=== PATIENT | female | born 1950 | race Caucasian/White ===

== ENCOUNTER 2017-12-02 11:40 | Inpatient (IN) | payer MEDICARE, BC ==
[2017-12-02] MEDS ORDERED: ACETAMINOPHEN IV (For NPO) 1,000 MG in EMPTY BAG 1 BAG IVPB STA (14:06)
--- NOTE | 2017-12-02 14:07 | ED ---
General Adult HPI - General Source: patient, RN notes reviewed Mode of arrival: ambulatory Limitations: no limitations <Yves Corado - Last Filed: 12/02/17 16:22> <Itz Jung - Last Filed: 12/02/17 16:30> - General Chief complaint: Abdominal Pain Stated complaint: Rectal pain Time Seen by Provider: 12/02/17 13:55 - History of Present Illness Initial comments: 67-year-old female who presents emergency room today with a chief complaint of abdominal pain over the last 3 weeks. She does admit that she's felt constipated. Doesn't that she's tried a stool softener. States that she was able have small bowel movement. States she still feeling full. Associated patient's pain equal to the rectum and also having some dysuria type symptoms. She does admit some pressure with urination. Patient denies any other complaints. Patient denies any recent fever, chills, shortness of breath, chest pain, nausea or vomiting, numbness or tingling, dysuria or hematuria, headaches or visual changes, or any other complaints. (Yves Corado) - Related Data Home Medications Medication Instructions Recorded Confirmed Albuterol Sulfate [Proair Hfa] 1 - 2 puff INHALATION RT-Q6H PRN 12/02/17 Calcium Carbonate [Calcium] 600 mg PO DAILY 12/02/17 12/02/17 Calcium Polycarbophil [Fibercon] 625 mg PO DAILY 12/02/17 12/02/17 DULoxetine HCL [Cymbalta] 60 mg PO HS 12/02/17 12/02/17 Docusate [Colace] 100 mg PO DAILY PRN 12/02/17 12/02/17 Fluticasone Nasal [place] [Flonase 1 spray EA NOSTRIL DAILY 12/02/17 12/02/17 Nasal [place]] Gabapentin [Neurontin] 800 mg PO TID 12/02/17 12/02/17 Losartan Potassium [Cozaar] 100 mg PO HS 12/02/17 12/02/17 Metoprolol Tartrate [Lopressor] 50 mg PO W/LUNCH 12/02/17 12/02/17 Montelukast [Singulair] 10 mg PO HS 12/02/17 12/02/17 Omeprazole [PriLOSEC] 20 mg PO DAILY 12/02/17 12/02/17 Pioglitazone [Actos] 15 mg PO DAILY 12/02/17 12/02/17 Pyridoxine HCl (Vitamin B6) 100 mg PO DAILY 12/02/17 12/02/17 [Vitamin B-6] Simvastatin [Zocor] 10 mg PO HS 12/02/17 12/02/17 Triamterene/Hydrochlorothiazid 1 tab PO DAILY 12/02/17 12/02/17 [Triamterene-Hctz 37.5-25 mg Tb] Umeclidinium Brm/Vilanterol Tr 1 puff INHALATION RT-DAILY 12/02/17 12/02/17 [Anoro Ellipta 62.5-25 Mcg INH] Vitamin E (Dl,Tocopheryl Acet) 400 unit PO DAILY 12/02/17 12/02/17 [Vitamin E] Allergies Allergy/AdvReac Type Severity Reaction Status Date / Time codeine Allergy Unknown Verified 12/02/17 14:51 meperidine [From Demerol] Allergy Unknown Verified 12/02/17 14:51 Review of Systems ROS Other: All systems not noted in ROS Statement are negative. <Yves Corado - Last Filed: 12/02/17 16:22> ROS Other: All systems not noted in ROS Statement are negative. <Itz Jung - Last Filed: 12/02/17 16:30> ROS Statement: Those systems with pertinent positive or pertinent negative responses have been documented in the HPI. Past Medical History Past Medical History: Asthma, COPD, Diabetes Mellitus, Hypertension Additional Past Medical History / Comment(s): diverticulitis History of Any Multi-Drug Resistant Organisms: None Reported Past Surgical History: Appendectomy, Hysterectomy, Orthopedic Surgery Additional Past Surgical History / Comment(s): left and right knee replacement, carpal tunnel Past Psychological History: Depression Smoking Status: Never smoker Past Alcohol Use History: None Reported Past Drug Use History: None Reported <Yves Corado - Last Filed: 12/02/17 16:22> General Exam Limitations: no limitations <Yves Corado - Last Filed: 12/02/17 16:22> <Itz Jung - Last Filed: 12/02/17 16:30> - General Exam Comments Initial Comments: General: The patient is awake and alert, in no distress, and does not appear acutely ill. Eye: Pupils are equal, round and reactive to light, extra-ocular movements are intact. No nystagmus. There is normal conjunctiva bilaterally. No signs of icterus. Ears, nose, mouth and throat: There are moist mucous membranes and no oral lesions. Neck: The neck is supple, there is no tenderness or JVD. Cardiovascular: There is a regular rate and rhythm. No murmur, rub or gallop is appreciated. Respiratory: Lungs are clear to auscultation, respirations are non-labored, breath sounds are equal. No wheezes, stridor, rales, or rhonchi. Gastrointestinal: Normal appearance of the abdomen. Normal bowel sounds. Abdomen soft on palpation. Patient does have tenderness or abdomen on palpation. No rebound tenderness. No guarding. Musculoskeletal: Normal ROM, no tenderness. Strength 5/5. Sensation intact. Pulses equal bilaterally 2+. Neurological: A&O x 3. CN II-XII intact, There are no obvious motor or sensory deficits. Coordination appears grossly intact. Speech is normal. Skin: Skin is warm and dry and no rashes or lesions are noted. Psychiatric: Cooperative, appropriate mood & affect, normal judgment. (Yves Corado) Course <Yves Corado - Last Filed: 12/02/17 16:22> <Itz Jung - Last Filed: 12/02/17 16:30> Vital Signs 12/02/17 12/02/17 12/02/17 11:59 13:58 14:44 Temperature 100.4 F H Pulse Rate 88 83 83 Respiratory 16 16 14 Rate Blood Pressure 189/74 160/68 150/65 O2 Sat by Pulse 97 96 97 Oximetry - Reevaluation(s) Reevaluation #1: 12/02/17 16:27 I did personally do a [id number] evaluation the patient did discuss findings with her she does demonstrate lower abdominal pain. I did discuss the case with the on-call hospitalist Dr. Mariano and with Dr. Wheat. He has had this was evidence of a retrocecal diverticulitis with abscess. (Itz Jung) Medical Decision Making - Lab Data Result diagrams: 12/02/17 13:51 12/02/17 13:51 <Yves Corado - Last Filed: 12/02/17 16:22> - Lab Data Result diagrams: 12/02/17 13:51 12/02/17 13:51 <Itz Jung - Last Filed: 12/02/17 16:30> - Medical Decision Making Patient's labs been reviewed does show a 16,[address] does reveal sigmoid diverticulitis with an abscess. This discussed was seen by attending physician Dr. Jung discussed the case with patient's surgeon Dr. Wheat will be consult and patient will be admitted to medicine on antibiotics. Patient is aware the plan. (Yves Corado) - Lab Data Lab Results 12/02/17 12/02/17 12/02/17 Range/Units 13:51 13:51 13:51 WBC 16.3 H (3.8-10.6) k/uL RBC 4.53 (3.80-5.40) m/uL Hgb 12.3 (11.4-16.0) gm/dL Hct 38.5 (34.0-46.0) % MCV 84.9 (80.0-100.0) fL MCH 27.1 (25.0-35.0) pg MCHC 32.0 (31.0-37.0) g/dL RDW 13.1 (11.5-15.5) % Plt Count 239 (150-450) k/uL Neutrophils % 87 % Lymphocytes % 7 % Monocytes % 4 % Eosinophils % 1 % Basophils % 0 % Neutrophils # 14.1 H (1.3-7.7) k/uL Lymphocytes # 1.2 (1.0-4.8) k/uL Monocytes # 0.7 (0-1.0) k/uL Eosinophils # 0.1 (0-0.7) k/uL Basophils # 0.0 (0-0.2) k/uL Sodium 140 (137-145) mmol/L Potassium 4.6 (3.5-5.1) mmol/L Chloride 99 (98-107) mmol/L Carbon Dioxide 28 (22-30) mmol/L Anion Gap 13 mmol/L BUN 20 H (7-17) mg/dL Creatinine 0.90 (0.52-1.04) mg/dL Est GFR (MDRD) Af Amer >60 (>60 ml/min/1.73 sqM) Est GFR (MDRD) Non-Af >60 (>60 ml/min/1.73 sqM) Glucose 103 H (74-99) mg/dL Plasma Lactic Acid [place]on 1.0 (0.7-2.0) mmol/L Calcium 9.9 (8.4-10.2) mg/dL Total Bilirubin 0.5 (0.2-1.3) mg/dL AST 30 (14-36) U/L ALT 33 (9-52) U/L Alkaline Phosphatase 84 (38-126) U/L Total Protein 6.8 (6.3-8.2) g/dL Albumin 4.1 (3.5-5.0) g/dL Amylase 47 (30-110) U/L Lipase 49 (23-300) U/L Urine Color Urine Appearance (Clear) Urine pH (5.0-8.0) Ur Specific [place] (1.001-1.035) Urine Protein (Negative) Urine Glucose (UA) (Negative) Urine Ketones (Negative) Urine Blood (Negative) Urine Nitrite (Negative) Urine Bilirubin (Negative) Urine Urobilinogen (<2.0) mg/dL Ur Leukocyte Esterase (Negative) Urine RBC (0-5) /hpf Urine WBC (0-5) /hpf Urine WBC Clumps (None) /hpf Ur Squamous Epith Cells (0-4) /hpf Urine Bacteria (None) /hpf Urine Mucus (None) /hpf 12/02/17 Range/Units 13:51 WBC (3.8-10.6) k/uL RBC (3.80-5.40) m/uL Hgb (11.4-16.0) gm/dL Hct (34.0-46.0) % MCV (80.0-100.0) fL MCH (25.0-35.0) pg MCHC (31.0-37.0) g/dL RDW (11.5-15.5) % Plt Count (150-450) k/uL Neutrophils % % Lymphocytes % % Monocytes % % Eosinophils % % Basophils % % Neutrophils # (1.3-7.7) k/uL Lymphocytes # (1.0-4.8) k/uL Monocytes # (0-1.0) k/uL Eosinophils # (0-0.7) k/uL Basophils # (0-0.2) k/uL Sodium (137-145) mmol/L Potassium (3.5-5.1) mmol/L Chloride (98-107) mmol/L Carbon Dioxide (22-30) mmol/L Anion Gap mmol/L BUN (7-17) mg/dL Creatinine (0.52-1.04) mg/dL Est GFR (MDRD) Af Amer (>60 ml/min/1.73 sqM) Est GFR (MDRD) Non-Af (>60 ml/min/1.73 sqM) Glucose (74-99) mg/dL Plasma Lactic Acid [place] (0.7-2.0) mmol/L Calcium (8.4-10.2) mg/dL Total Bilirubin (0.2-1.3) mg/dL AST (14-36) U/L ALT (9-52) U/L Alkaline Phosphatase (38-126) U/L Total Protein (6.3-8.2) g/dL Albumin (3.5-5.0) g/dL Amylase (30-110) U/L Lipase (23-300) U/L Urine Color Yellow Urine Appearance Clear (Clear) Urine pH 5.5 (5.0-8.0) Ur Specific [place] 1.013 (1.001-1.035) Urine Protein Negative (Negative) Urine Glucose (UA) Negative (Negative) Urine Ketones Negative (Negative) Urine Blood Negative (Negative) Urine Nitrite Negative (Negative) Urine Bilirubin Negative (Negative) Urine Urobilinogen <2.0 (<2.0) mg/dL Ur Leukocyte Esterase Small H (Negative) Urine RBC 1 (0-5) /hpf Urine WBC 11 H (0-5) /hpf Urine WBC Clumps Rare H (None) /hpf Ur Squamous Epith Cells 1 (0-4) /hpf Urine Bacteria Rare H (None) /hpf Urine Mucus Rare H (None) /hpf Disposition Time of Disposition: 16:26 <Yves Corado - Last Filed: 12/02/17 16:22> <Itz Jung - Last Filed: 12/02/17 16:30> Clinical Impression: Diverticulitis Disposition: ADMITTED IP TO THIS [facility] Referrals: Vignesh De Souza MD [Primary Care Provider] - 1-2 days
[2017-12-02 14:09] LABS: Basophils % (A) 0 %; Eosinophils # (A) 0.1 k/uL (0-0.7); Eosinophils % (A) 1 %; HCT 38.5 % (34.0-46.0); HGB 12.3 gm/dL (11.4-16.0); Lymphocytes # (A) 1.2 k/uL (1.0-4.8); Lymphocytes % (A) 7 %; MCH 27.1 pg (25.0-35.0); MCV 84.9 fL (80.0-100.0); Mean Platelet Volume 8.5; Monocytes # (A) 0.7 k/uL (0-1.0); Monocytes % (A) 4 %; Neutrophils # (A) 14.1 k/uL (1.3-7.7); Neutrophils % (A) 87 %; Platelet Count 239 k/uL (150-450); RBC 4.53 m/uL (3.80-5.40); RDW 13.1 % (11.5-15.5); WBC 16.3 k/uL (3.8-10.6)
[2017-12-02 14:14] LABS: ALT 33 U/L (9-52); AST 30 U/L (14-36); Albumin 4.1 g/dL (3.5-5.0); Alkaline Phosphatase 84 U/L (38-126); Amylase 47 U/L (30-110); Anion Gap 13 mmol/L; Appearance,Urine Clear (Clear); Bacteria,Urine Rare /hpf; Bilirubin,Urine Negative (Negative); Blood Urea Nitrogen 20 mg/dL (7-17); Blood,Urine Negative (Negative); Calcium 9.9 mg/dL (8.4-10.2); Carbon Dioxide 28 mmol/L (22-30); Chloride 99 mmol/L (98-107); Color,Urine Yellow; Glucose 103 mg/dL (74-99); Glucose,Urine (UA) Negative (Negative); Ketones,Urine Negative (Negative); Leukocyte Esterase,Urine Small (Negative); Lipase 49 U/L (23-300); Mucus,Urine Rare /hpf; Nitrite,Urine Negative (Negative); PH, Urine 5.5 (5.0-8.0); Protein,Urine Negative (Negative); RBC,Urine 1 /hpf (0-5); Sodium 140 mmol/L (137-145); Specific Gravity,Urine 1.013 (1.001-1.035); Squamous Epithelial Cell,Urine 1 /hpf (0-4); Total Bilirubin 0.5 mg/dL (0.2-1.3); Total Protein 6.8 g/dL (6.3-8.2); Urobilinogen,Urine <2.0 mg/dL (<2.0); WBC,Urine 11 /hpf (0-5)
[2017-12-02 14:15] LABS: Potassium 4.6 mmol/L (3.5-5.1)
--- NOTE | 2017-12-02 14:21 | XR ---
EXAMINATION TYPE: XR KUB DATE OF EXAM: 12/02/2017 2:11 PM CLINICAL HISTORY: Constipation and lower abdominal/rectal pain TECHNIQUE: Single upright image of the abdomen is obtained. COMPARISON: None. FINDINGS: Scattered gas is seen in non-distended small bowel loops. Gas and fecal material is seen in non-distended colon. There is no visceromegaly, pneumoperitoneum, or abnormal calcification apprecia avila. The lung bases are clear and the osseous structures are intact. Focal rounded sclerotic area ove r the left iliac bone measures 1.1 cm and may represent a benign bone or focal sclerotic lesion. Mode rate degenerative changes of the visualized thoracolumbar and lumbosacral spine are seen most pronoun bebeto at the lumbosacral junction. IMPRESSION: 1. Nonobstructive bowel gas pattern. 2. Nonspecific sclerotic focus overlying the left iliac bone. Further evaluation with CT pelvis could be performed on a nonemergent basis.
[2017-12-02] MEDS ORDERED: RX INFO: IV CONTRAST WAS GIVEN 1 EACH MISC MISCELLANE PRN (14:41)
--- NOTE | 2017-12-02 15:45 | CT ---
EXAMINATION TYPE: CT abdomen pelvis w con DATE OF EXAM: 12/02/2017 COMPARISON: NONE HISTORY: Lower abd pain and constipation x3 weeks. CT DLP: 1631.4 mGycm CONTRAST: CT scan of the abdomen and pelvis is performed without Oral Contrast and with IV Contrast, patient in jected with 100ml mL of Omnipaque 300. FINDINGS: LUNG BASES-: No visible nodule. No infiltrate. LIVER/GB: No calcified gallstones. No space occupying hepatic lesion. Biliary tree is of normal ca liber. PANCREAS: No inflammation. No distinct mass. SPLEEN: No splenic enlargement. No lesion seen. Splenic granulomas identified. ADRENALS: No nodule. No thickening. KIDNEYS/BLADDER: No hydronephrosis. No nephrolithiasis. Renal cortical cysts noted. No solid renal lesions. Urinary bladder grossly unremarkable. BOWEL: To the right of midline directly adjacent to the rectosigmoid colon is an abscess measuring 4. 9 x 4.8 x 5.2 cm felt to be related to diverticulitis. Perforated neoplasm is less likely. No definit e free air identified. Small of bowel and remainder of the colon are of normal caliber. No evidence f or pneumoperitoneum. Postsurgical changes of appendectomy. GENITAL ORGANS: Hysterectomy changes identified. LYMPH NODES: No greater than 1cm abdominal or pelvic lymph nodes are appreciated. AORTA: No significant abnormality. OSSEOUS STRUCTURES: No significant abnormality is seen. OTHER: Fat-containing umbilical hernia.. IMPRESSION: 1. Rectosigmoid diverticulitis with diverticular abscess as discussed above.
[2017-12-02] MEDS ORDERED: PIPERACILLIN-TAZOBACTAM 3.375 GM in DEXTROSE/WATER 1 50ML.BAG IVPB STA (15:58)
[2017-12-02] MEDS ORDERED: NALOXONE 0.4 MG/ML 1 ML VIAL IV PRN ×2 (16:27→17:56)
[2017-12-02] MEDS: HYDROmorphone 1 MG/ML 1 ML SYRINGE IVP PRN (17:35)
[2017-12-02] MEDS: SODIUM CHLORIDE 0.9% 1,000 ML IV SCH (18:09)
[2017-12-02] MEDS ORDERED: LABETALOL 5 MG/ML VIAL MDV IVP PRN (18:15)
--- NOTE | 2017-12-02 18:20 | P.HPIM ---
History of Present Illness H&P Date: 12/02/17 Chief Complaint: Abd pain. 67-year-old female who presents emergency room today with a chief complaint of abdominal pain over the last 3 weeks. She does admit that she's felt constipated, took a stool softener then was able to have a BM and while having it she was having rectal pain. She does admit some abdominal pressure with urination. Patient has also been having nausea, vomiting, general weakness, fevers and chills. Patient denies any shortness of breath, chest pain, numbness or tingling, dysuria or hematuria, headaches or visual changes, or any other complaints. Patient was told that she had diverticulosis in the past when she had a colonoscopy. Review of Systems 12 point review of system was performed, negative except for HPI Past Medical History Past Medical History: Asthma, Cancer, COPD, Diabetes Mellitus, Fibromyalgia, GERD/Reflux, Hyperlipidemia, Hypertension, Rheumatoid Arthritis (RA), Sleep Apnea/CPAP/BIPAP Additional Past Medical History / Comment(s): diverticulitis, skin ca, tremor History of Any Multi-Drug Resistant Organisms: None Reported Past Surgical History: Appendectomy, Hysterectomy, Orthopedic Surgery Additional Past Surgical History / Comment(s): left and right knee replacement, bilat carpal tunnel, skin ca removal, bilat rotator cuff repair. Past Anesthesia/Blood Transfusion Reactions: No Reported Reaction Past Psychological History: Depression Smoking Status: Never smoker Past Alcohol Use History: None Reported Past Drug Use History: None Reported - Past Family History Father Family Medical History: Cancer Mother Family Medical History: CVA/TIA Medications and Allergies Home Medications Medication Instructions Recorded Confirmed Type Albuterol Sulfate [Proair Hfa] 1 - 2 puff INHALATION RT-Q6H PRN 12/02/17 History Calcium Carbonate [Calcium] 600 mg PO DAILY 12/02/17 12/02/17 History Calcium Polycarbophil [Fibercon] 625 mg PO DAILY 12/02/17 12/02/17 History DULoxetine HCL [Cymbalta] 60 mg PO HS 12/02/17 12/02/17 History Docusate [Colace] 100 mg PO DAILY PRN 12/02/17 12/02/17 History Fluticasone Nasal [place] [Flonase 1 spray EA NOSTRIL DAILY 12/02/17 12/02/17 History Nasal [place]] Gabapentin [Neurontin] 800 mg PO TID 12/02/17 12/02/17 History Losartan Potassium [Cozaar] 100 mg PO HS 12/02/17 12/02/17 History Metoprolol Tartrate [Lopressor] 50 mg PO W/LUNCH 12/02/17 12/02/17 History Montelukast [Singulair] 10 mg PO HS 12/02/17 12/02/17 History Omeprazole [PriLOSEC] 20 mg PO DAILY 12/02/17 12/02/17 History Pioglitazone [Actos] 15 mg PO DAILY 12/02/17 12/02/17 History Pyridoxine HCl (Vitamin B6) 100 mg PO DAILY 12/02/17 12/02/17 History [Vitamin B-6] Simvastatin [Zocor] 10 mg PO HS 12/02/17 12/02/17 History Triamterene/Hydrochlorothiazid 1 tab PO DAILY 12/02/17 12/02/17 History [Triamterene-Hctz 37.5-25 mg Tb] Umeclidinium Brm/Vilanterol Tr 1 puff INHALATION RT-DAILY 12/02/17 12/02/17 History [Anoro Ellipta 62.5-25 Mcg INH] Vitamin E (Dl,Tocopheryl Acet) 400 unit PO DAILY 12/02/17 12/02/17 History [Vitamin E] Allergies Allergy/AdvReac Type Severity Reaction Status Date / Time codeine Allergy Unknown Verified 12/02/17 14:51 meperidine [From Demerol] Allergy Unknown Verified 12/02/17 14:51 Physical Exam Vitals: Vital Signs Temp Pulse Pulse Resp BP BP Pulse Ox 12/02/17 17:41 97.8 F 89 19 144/73 98 12/02/17 17:20 99 F 12/02/17 16:38 91 16 146/69 96 12/02/17 14:44 83 14 150/65 97 12/02/17 13:58 83 16 160/68 96 12/02/17 11:59 100.4 F H 88 16 189/74 97 Intake and Output 12/02/17 12/02/17 12/02/17 06:59 14:59 22:59 Other: Weight 97.069 kg 97.06 kg Patient Weight 01/03/18 06:59 Weight 97.06 kg Constitutional: No acute distress, conversant, pleasant Eyes:Anicteric sclerae, moist conjunctiva, no lid-lag, PERRLA, ENMT: Oropharynx clear, no erythema, exudates Neck: Supple, FROM, no masses, or JVD, No carotid bruits, No thyromegaly Lungs: Clear to auscultation, Clear to percussion, Normal respiratory effort, no accessory muscle use Cardiovascular: Heart regular in rate and rhythm, No murmurs, gallops, or rubs, No peripheral edema Abdominal: Soft, tender especially in the suprapubic and periumbilical areas, no guarding, rebound or rigidity, Normoactive bowel sounds, No hepatomegaly, No splenomegaly, No palpable mass Skin: Normal temperature, tone, texture, turgor, no induration, No subcutaneous nodules, No rash, lesions, No ulcers Extremities: No digital cyanosis, No clubbing, Pedal pulses intact and symmetrical, Radial pulses intact and symmetrical, No calf tenderness Psychiatric: Alert and oriented to person, place and time, appropriate affect, intact judgement Neuro: Muscles Strength 5/5 in all 4 extremities, Sensation to light touch grossly present throughout, Cranial nerves II-XII grossly intact, no focal sensory deficits Results CBC & Chem 7: 12/02/17 13:51 12/02/17 13:51 Labs: Abnormal Lab Results - Last 24 Hours (Table) 12/02/17 12/02/17 12/02/17 Range/Units 13:51 13:51 13:51 WBC 16.3 H (3.8-10.6) k/uL Neutrophils # 14.1 H (1.3-7.7) k/uL BUN 20 H (7-17) mg/dL Glucose 103 H (74-99) mg/dL Ur Leukocyte Esterase Small H (Negative) Urine WBC 11 H (0-5) /hpf Urine WBC Clumps Rare H (None) /hpf Urine Bacteria Rare H (None) /hpf Urine Mucus Rare H (None) /hpf Thrombosis Risk Factor Assmnt - Choose All That Apply Any of the Below Risk Factors Present?: Yes Each Factor Represents 1 point: Abnormal pulmonary function (COPD), Obesity ( BMI >25), Varicose veins Other Risk Factors: Yes Each Risk Factor Represents 2 Points: Age 61-74 years Thrombosis Risk Factor Assessment Total Risk Factor Score: 5 Thrombosis Risk Factor Assessment Level: High Risk Assessment and Plan Plan: #1 Rectosigmoid diverticulosis with diverticular abscess: D/W general surgery by the emergency physician Admit to [facility] Labs and computed tomography scan findings were reviewed Start Zosyn 3.375 g IV every 8 hours. NPO IV fluids Likely need some form of abscess drainage either by IR or general surgery General surgery to evaluate in a.m. #2 Leukocytosis Likely secondary to #1 Follow in a.m. #3 DM type 2: Hold oral meds Check blood sugars every 6hrs SSI #4 Benign HTN: Labetalol IV prn Hold BP meds as she is NPO. #5 Hx of asthma and COPD: Albuterol PRN #6 Fibromyalgia, GERD/Reflux, Hyperlipidemia, Rheumatoid Arthritis (RA): All stable Hold bp meds as she is npo.
[2017-12-02] MEDS ORDERED: hydrALAZINE HCL 20 MG/ML 1 ML VIAL IVP PRN (18:43)
--- NOTE | 2017-12-02 19:41 | P.GSCN ---
History of Present Illness Consult date: 12/02/17 Reason for Consult: Diverticulitis History of present illness: Patient states that she has had lower abdominal pain for the last 2-3 weeks. Location is midline to the right. Pain aggravated by bowel activity and also urination. Has had low-grade fevers and chills. T-max 100.4 here in the hospital. White blood cell count 16. No outpatient workup. Last colonoscopy a proximally 5-10 years ago. No history of diverticulitis. CT abdomen shows a 4-5 cm phlegmon adjacent to the sigmoid colon thought to be related to diverticulitis. Feels better currently. She has had constipation related to outpatient narcotic use. Recently had some loose stools however. Denies rectal bleeding or melena. Review of Systems The patient denies any acute changes in vision or hearing, no dysphagia or odynophagia, no chest pain or shortness of breath, no dysuria or hematuria, no headache, no runny nose, no rectal bleeding or melena, no unexplained weight loss Past Medical History Past Medical History: Asthma, Cancer, COPD, Diabetes Mellitus, Fibromyalgia, GERD/Reflux, Hyperlipidemia, Hypertension, Rheumatoid Arthritis (RA), Sleep Apnea/CPAP/BIPAP Additional Past Medical History / Comment(s): diverticulitis, skin ca, tremor History of Any Multi-Drug Resistant Organisms: None Reported Past Surgical History: Appendectomy, Hysterectomy, Orthopedic Surgery Additional Past Surgical History / Comment(s): left and right knee replacement, bilat carpal tunnel, skin ca removal, bilat rotator cuff repair. Past Anesthesia/Blood Transfusion Reactions: No Reported Reaction Past Psychological History: Depression Smoking Status: Never smoker Past Alcohol Use History: None Reported Past Drug Use History: None Reported - Past Family History Father Family Medical History: Cancer Mother Family Medical History: CVA/TIA Medications and Allergies Home Medications Medication Instructions Recorded Confirmed Type Albuterol Sulfate [Proair Hfa] 1 - 2 puff INHALATION RT-Q6H PRN 12/02/17 History Calcium Carbonate [Calcium] 600 mg PO DAILY 12/02/17 12/02/17 History Calcium Polycarbophil [Fibercon] 625 mg PO DAILY 12/02/17 12/02/17 History DULoxetine HCL [Cymbalta] 60 mg PO HS 12/02/17 12/02/17 History Docusate [Colace] 100 mg PO DAILY PRN 12/02/17 12/02/17 History Fluticasone Nasal [place] [Flonase 1 spray EA NOSTRIL DAILY 12/02/17 12/02/17 History Nasal [place]] Gabapentin [Neurontin] 800 mg PO TID 12/02/17 12/02/17 History Losartan Potassium [Cozaar] 100 mg PO HS 12/02/17 12/02/17 History Metoprolol Tartrate [Lopressor] 50 mg PO W/LUNCH 12/02/17 12/02/17 History Montelukast [Singulair] 10 mg PO HS 12/02/17 12/02/17 History Omeprazole [PriLOSEC] 20 mg PO DAILY 12/02/17 12/02/17 History Pioglitazone [Actos] 15 mg PO DAILY 12/02/17 12/02/17 History Pyridoxine HCl (Vitamin B6) 100 mg PO DAILY 12/02/17 12/02/17 History [Vitamin B-6] Simvastatin [Zocor] 10 mg PO HS 12/02/17 12/02/17 History Triamterene/Hydrochlorothiazid 1 tab PO DAILY 12/02/17 12/02/17 History [Triamterene-Hctz 37.5-25 mg Tb] Umeclidinium Brm/Vilanterol Tr 1 puff INHALATION RT-DAILY 12/02/17 12/02/17 History [Anoro Ellipta 62.5-25 Mcg INH] Vitamin E (Dl,Tocopheryl Acet) 400 unit PO DAILY 12/02/17 12/02/17 History [Vitamin E] Allergies Allergy/AdvReac Type Severity Reaction Status Date / Time codeine Allergy Unknown Verified 12/02/17 14:51 meperidine [From Demerol] Allergy Unknown Verified 12/02/17 14:51 Surgical - Exam Vital Signs Temp Pulse Resp BP Pulse Ox 100.4 F H 88 16 189/74 97 12/02/17 11:59 12/02/17 11:59 12/02/17 11:59 12/02/17 11:59 12/02/17 11:59 Physical exam: General: Well-developed, well-nourished HEENT: Normocephalic, sclerae nonicteric Abdomen: mild lower abdominal tenderness, nondistended Extremities: No edema Neuro: Alert and oriented Results - Labs 12/02/17 13:51 12/02/17 13:51 Abnormal Lab Results - Last 24 Hours (Table) 12/02/17 12/02/17 12/02/17 Range/Units 13:51 13:51 13:51 WBC 16.3 H (3.8-10.6) k/uL Neutrophils # 14.1 H (1.3-7.7) k/uL BUN 20 H (7-17) mg/dL Glucose 103 H (74-99) mg/dL Ur Leukocyte Esterase Small H (Negative) Urine WBC 11 H (0-5) /hpf Urine WBC Clumps Rare H (None) /hpf Urine Bacteria Rare H (None) /hpf Urine Mucus Rare H (None) /hpf Diabetes panel 12/02/17 Range/Units 13:51 Sodium 140 (137-145) mmol/L Potassium 4.6 (3.5-5.1) mmol/L Chloride 99 (98-107) mmol/L Carbon Dioxide 28 (22-30) mmol/L BUN 20 H (7-17) mg/dL Creatinine 0.90 (0.52-1.04) mg/dL Glucose 103 H (74-99) mg/dL Calcium 9.9 (8.4-10.2) mg/dL AST 30 (14-36) U/L ALT 33 (9-52) U/L Alkaline Phosphatase 84 (38-126) U/L Total Protein 6.8 (6.3-8.2) g/dL Albumin 4.1 (3.5-5.0) g/dL Calcium panel 12/02/17 Range/Units 13:51 Calcium 9.9 (8.4-10.2) mg/dL Albumin 4.1 (3.5-5.0) g/dL Pituitary panel 12/02/17 Range/Units 13:51 Sodium 140 (137-145) mmol/L Potassium 4.6 (3.5-5.1) mmol/L Chloride 99 (98-107) mmol/L Carbon Dioxide 28 (22-30) mmol/L BUN 20 H (7-17) mg/dL Creatinine 0.90 (0.52-1.04) mg/dL Glucose 103 H (74-99) mg/dL Calcium 9.9 (8.4-10.2) mg/dL Adrenal panel 12/02/17 Range/Units 13:51 Sodium 140 (137-145) mmol/L Potassium 4.6 (3.5-5.1) mmol/L Chloride 99 (98-107) mmol/L Carbon Dioxide 28 (22-30) mmol/L BUN 20 H (7-17) mg/dL Creatinine 0.90 (0.52-1.04) mg/dL Glucose 103 H (74-99) mg/dL Calcium 9.9 (8.4-10.2) mg/dL Total Bilirubin 0.5 (0.2-1.3) mg/dL AST 30 (14-36) U/L ALT 33 (9-52) U/L Alkaline Phosphatase 84 (38-126) U/L Total Protein 6.8 (6.3-8.2) g/dL Albumin 4.1 (3.5-5.0) g/dL Assessment and Plan (1) Diverticulitis Narrative/Plan: Patient with new onset lower abdominal pain and CAT scan findings showing diverticulitis with phlegmon/abscess. Continue broad-spectrum antibiotics. Clear liquid diet only at this time. Repeat CBC tomorrow. Anticipate repeat CAT scan in 1 week. Current Visit: Yes Status: Acute Code(s): K57.92 - DVTRCLI OF INTEST, PART UNSP, W/O PERF OR ABSCESS W/O BLEED SNOMED Code(s): 171787816
[2017-12-02 20:48] LABS: Glucose,Whole Blood 113 mg/dL (75-99)
[2017-12-02] MEDS: INSULIN ASPART 100 UNIT/ML 1 ML 10 ML VIAL SQ SCH (21:14)
[2017-12-03] MEDS: PIPERACILLIN-TAZOBACTAM 3.375 GM in DEXTROSE/WATER 1 50ML.BAG IVPB SCH ×4 (00:31→23:42)
[2017-12-03] MEDS: HYDROmorphone 1 MG/ML 1 ML SYRINGE IVP PRN ×7 (00:32→21:19)
[2017-12-03] MEDS: SODIUM CHLORIDE 0.9% 1,000 ML IV SCH ×3 (06:32→23:42)
[2017-12-03 08:03] LABS: Basophils % (A) 0 %; Eosinophils % (A) 0 %; HCT 33.7 % (34.0-46.0); HGB 10.6 gm/dL (11.4-16.0); Lymphocytes # (A) 0.7 k/uL (1.0-4.8); Lymphocytes % (A) 5 %; MCH 26.6 pg (25.0-35.0); MCHC 31.4 g/dL (31.0-37.0); MCV 84.9 fL (80.0-100.0); Monocytes # (A) 0.6 k/uL (0-1.0); Monocytes % (A) 4 %; Neutrophils # (A) 12.3 k/uL (1.3-7.7); Neutrophils % (A) 89 %; Platelet Count 212 k/uL (150-450); RBC 3.97 m/uL (3.80-5.40); RDW 13.1 % (11.5-15.5); WBC 13.9 k/uL (3.8-10.6)
[2017-12-03 08:26] LABS: ALT 31 U/L (9-52); AST 15 U/L (14-36); Albumin 3.3 g/dL (3.5-5.0); Alkaline Phosphatase 80 U/L (38-126); Anion Gap 11 mmol/L; Blood Urea Nitrogen 17 mg/dL (7-17); Calcium 9.2 mg/dL (8.4-10.2); Carbon Dioxide 28 mmol/L (22-30); Chloride 98 mmol/L (98-107); Glucose 118 mg/dL (74-99); Magnesium 1.6 mg/dL (1.6-2.3); Phosphorus 4.1 mg/dL (2.5-4.5); Potassium 3.6 mmol/L (3.5-5.1); Sodium 137 mmol/L (137-145); Total Bilirubin 0.6 mg/dL (0.2-1.3); Total Protein 5.6 g/dL (6.3-8.2)
[2017-12-03 08:44] LABS: Glucose,Whole Blood 179 mg/dL (75-99)
[2017-12-03] MEDS: INSULIN ASPART 100 UNIT/ML 1 ML 10 ML VIAL SQ SCH ×4 (09:37→20:53)
[2017-12-03] MEDS: FLUTICASONE 50MCG/SPRAY NASAL 16GM EA NOSTRIL SCH (09:38)
--- NOTE | 2017-12-03 11:24 | P.PN ---
Subjective Progress Note Date: 12/03/17 Principal diagnosis: Abdominal pain. Still having severe pain in the lower part of the abdomen and pain with urination as well. Objective - Vital Signs Vital signs: Vital Signs Temp 98.7 F 12/03/17 07:00 Pulse 94 12/03/17 09:47 Resp 16 12/03/17 09:47 BP 139/68 12/03/17 07:00 Pulse Ox 95 12/03/17 07:00 Intake & Output 12/02/17 12/03/17 12/03/17 18:59 06:59 18:59 Intake Total 240 Balance 240 Weight 97.06 kg Intake: Oral 240 Other: Voiding Method Toilet Toilet # Voids 3 1 # Bowel Movements 1 - Exam Constitutional: No acute distress, conversant, pleasant Eyes:Anicteric sclerae, moist conjunctiva, no lid-lag, PERRLA, ENMT: Oropharynx clear, no erythema, exudates Neck: Supple, FROM, no masses, or JVD, No carotid bruits, No thyromegaly Lungs: Clear to auscultation, Clear to percussion, Normal respiratory effort, no accessory muscle use Cardiovascular: Heart regular in rate and rhythm, No murmurs, gallops, or rubs, No peripheral edema Abdominal: Soft, tender especially in the suprapubic and periumbilical areas, no guarding, rebound or rigidity, Normoactive bowel sounds, No hepatomegaly, No splenomegaly, No palpable mass Skin: Normal temperature, tone, texture, turgor, no induration, No subcutaneous nodules, No rash, lesions, No ulcers Extremities: No digital cyanosis, No clubbing, Pedal pulses intact and symmetrical, Radial pulses intact and symmetrical, No calf tenderness Psychiatric: Alert and oriented to person, place and time, appropriate affect, intact judgement Neuro: Muscles Strength 5/5 in all 4 extremities, Sensation to light touch grossly present throughout, Cranial nerves II-XII grossly intact, no focal sensory deficits - Labs CBC & Chem 7: 12/03/17 07:41 12/03/17 07:41 Labs: Abnormal Lab Results - Last 24 Hours (Table) 12/02/17 12/02/17 12/02/17 Range/Units 13:51 13:51 13:51 WBC 16.3 H (3.8-10.6) k/uL Hgb (11.4-16.0) gm/dL Hct (34.0-46.0) % Neutrophils # 14.1 H (1.3-7.7) k/uL Lymphocytes # (1.0-4.8) k/uL BUN 20 H (7-17) mg/dL Glucose 103 H (74-99) mg/dL POC Glucose (mg/dL) (75-99) mg/dL Total Protein (6.3-8.2) g/dL Albumin (3.5-5.0) g/dL Ur Leukocyte Esterase Small H (Negative) Urine WBC 11 H (0-5) /hpf Urine WBC Clumps Rare H (None) /hpf Urine Bacteria Rare H (None) /hpf Urine Mucus Rare H (None) /hpf 12/02/17 12/03/17 12/03/17 Range/Units 20:47 07:41 07:41 WBC 13.9 H (3.8-10.6) k/uL Hgb 10.6 L (11.4-16.0) gm/dL Hct 33.7 L (34.0-46.0) % Neutrophils # 12.3 H (1.3-7.7) k/uL Lymphocytes # 0.7 L (1.0-4.8) k/uL BUN (7-17) mg/dL Glucose 118 H (74-99) mg/dL POC Glucose (mg/dL) 113 H (75-99) mg/dL Total Protein 5.6 L (6.3-8.2) g/dL Albumin 3.3 L (3.5-5.0) g/dL Ur Leukocyte Esterase (Negative) Urine WBC (0-5) /hpf Urine WBC Clumps (None) /hpf Urine Bacteria (None) /hpf Urine Mucus (None) /hpf 12/03/17 Range/Units 08:31 WBC (3.8-10.6) k/uL Hgb (11.4-16.0) gm/dL Hct (34.0-46.0) % Neutrophils # (1.3-7.7) k/uL Lymphocytes # (1.0-4.8) k/uL BUN (7-17) mg/dL Glucose (74-99) mg/dL POC Glucose (mg/dL) 179 H (75-99) mg/dL Total Protein (6.3-8.2) g/dL Albumin (3.5-5.0) g/dL Ur Leukocyte Esterase (Negative) Urine WBC (0-5) /hpf Urine WBC Clumps (None) /hpf Urine Bacteria (None) /hpf Urine Mucus (None) /hpf Microbiology - Last 24 Hours (Table) 12/02/17 13:51 Urine Culture - Preliminary Urine,Clean Catch Assessment and Plan Plan: #1 Rectosigmoid diverticulosis with diverticular abscess: D/W surgery [employer]--will d/w attending and call back. Continue Zosyn NPO IV fluids #2 Leukocytosis Likely secondary to #1 Improving Follow in a.m. #3 DM type 2: Hold oral meds BS controlled Check blood sugars every 6hrs SSI #4 Benign HTN: Hydralazine IV prn Hold BP meds as she is NPO. #5 Hx of asthma and COPD: Albuterol PRN #6 Fibromyalgia, GERD/Reflux, Hyperlipidemia, Rheumatoid Arthritis (RA): All stable Hold all oral meds.
[2017-12-03 12:01] LABS: Glucose,Whole Blood 129 mg/dL (75-99)
[2017-12-03] MEDS ORDERED: IOHEXOL 350 MG/ML 25 ML BOTTLE (ORAL USE) PO PRN (14:54)
[2017-12-03] MEDS ORDERED: RX INFO: IV CONTRAST WAS GIVEN 1 EACH MISC MISCELLANE PRN ×2 (14:54→16:14)
--- NOTE | 2017-12-03 15:20 | P.PN ---
<Antia Franciscojuan jose Mclean - Last Filed: 12/03/17 14:57> Subjective Progress Note Date: 12/03/17 67-year-old female seen and examined at bedside this morning. Patient reports that ambulating causes increased pain to the left lower quadrant. followed by surgical service for sigmoid diverticulitis with diverticular abscess reports a nausea sensation did vomit temp is up 102.7 continues to have left lower quadrant abdominal pain white count is 13.9 states urinating no difficulty no stool Objective - Vital Signs Vital signs: Vital Signs Temp 98.7 F 12/03/17 07:00 Pulse 94 12/03/17 09:47 Resp 16 12/03/17 09:47 BP 139/68 12/03/17 07:00 Pulse Ox 95 12/03/17 07:00 Intake & Output 12/02/17 12/03/17 12/03/17 18:59 06:59 18:59 Intake Total 480 Balance 480 Weight 97.06 kg Intake: Oral 480 Other: Voiding Method Toilet Toilet # Voids 3 1 # Bowel Movements 1 - Exam GENERAL APPEARANCE: patient is alert, awake reports of nausea sensation VITAL SIGNS: Reviewed HEENT: Head is normocephalic and atraumatic. Pupils are equal and reactive. The nares are patent. Oropharynx is clear without lesions. NECK: Supple without lymphadenopathy. Traches midline. HEART: S1, S2. Regular rate and rhythm. Denies chest pain LUNGS: No crackles or wheezes are heard. On room air ABDOMEN: Soft, positive tenderness to the left lower quadrant with slight palpitation nondistended with good bowel sounds. No peritoneal signs. No palpable organomegaly or masses. EXTREMITIES: Normal skin color and turgor. No cyanosis, rash, ulceration, clubbing or edema. Radial pedal pulses are 2/4 bilaterally. NEUROLOGICAL: No focal deficits. Strength and sensation are grossly intact. - Labs CBC & Chem 7: 12/03/17 07:41 12/03/17 07:41 Labs: Abnormal Lab Results - Last 24 Hours (Table) 12/02/17 12/03/17 12/03/17 Range/Units 20:47 07:41 07:41 WBC 13.9 H (3.8-10.6) k/uL Hgb 10.6 L (11.4-16.0) gm/dL Hct 33.7 L (34.0-46.0) % Neutrophils # 12.3 H (1.3-7.7) k/uL Lymphocytes # 0.7 L (1.0-4.8) k/uL Glucose 118 H (74-99) mg/dL POC Glucose (mg/dL) 113 H (75-99) mg/dL Total Protein 5.6 L (6.3-8.2) g/dL Albumin 3.3 L (3.5-5.0) g/dL 12/03/17 12/03/17 Range/Units 08:31 11:58 WBC (3.8-10.6) k/uL Hgb (11.4-16.0) gm/dL Hct (34.0-46.0) % Neutrophils # (1.3-7.7) k/uL Lymphocytes # (1.0-4.8) k/uL Glucose (74-99) mg/dL POC Glucose (mg/dL) 179 H 129 H (75-99) mg/dL Total Protein (6.3-8.2) g/dL Albumin (3.5-5.0) g/dL Microbiology - Last 24 Hours (Table) 12/02/17 13:51 Urine Culture - Preliminary Urine,Clean Catch Assessment and Plan Assessment: Impression Present on admission bilateral lower abdominal pain suspect due to diverticulitis with abscess CAT scan of the abdomen shows 4-5 cm phlegom sigmoid colon likely related to diverticulitis History of chronic constipation suspect due to opiate narcotic induced Febrile suspect due to diverticulitis with abscess Obesity BMI 37 Leukocytosis suspect secondary to a particular abscess Hypertension benign Plan IV antibiotics Zosyn as ordered Possible OR for incision and drainage timing to be determined Pain control DVT GI prophylaxis Repeat labs in the morning Further recommendations pending The above impression and plan of care have been discussed and directed by signing physician. Ana Francisco nurse practitioner acting as scribe for signing physician. <Rafaela Morris N - Last Filed: 12/03/17 21:01> Objective - Vital Signs Vital signs: Vital Signs Temp 102.7 F H 12/03/17 15:00 Pulse 100 12/03/17 15:33 Resp 17 12/03/17 15:33 BP 163/68 12/03/17 15:00 Pulse Ox 92 L 12/03/17 15:00 Intake & Output 12/03/17 12/03/17 12/04/17 06:59 18:59 06:59 Intake Total 480 Balance 480 Intake: Oral 480 Other: Voiding Method Toilet Toilet # Voids 3 3 # Bowel Movements 0 - Labs CBC & Chem 7: 12/03/17 07:41 12/03/17 07:41 Labs: Abnormal Lab Results - Last 24 Hours (Table) 12/03/17 12/03/17 12/03/17 Range/Units 07:41 07:41 08:31 WBC 13.9 H (3.8-10.6) k/uL Hgb 10.6 L (11.4-16.0) gm/dL Hct 33.7 L (34.0-46.0) % Neutrophils # 12.3 H (1.3-7.7) k/uL Lymphocytes # 0.7 L (1.0-4.8) k/uL Glucose 118 H (74-99) mg/dL POC Glucose (mg/dL) 179 H (75-99) mg/dL Total Protein 5.6 L (6.3-8.2) g/dL Albumin 3.3 L (3.5-5.0) g/dL 12/03/17 12/03/17 Range/Units 11:58 20:38 WBC (3.8-10.6) k/uL Hgb (11.4-16.0) gm/dL Hct (34.0-46.0) % Neutrophils # (1.3-7.7) k/uL Lymphocytes # (1.0-4.8) k/uL Glucose (74-99) mg/dL POC Glucose (mg/dL) 129 H 109 H (75-99) mg/dL Total Protein (6.3-8.2) g/dL Albumin (3.5-5.0) g/dL Microbiology - Last 24 Hours (Table) 12/02/17 13:51 Urine Culture - Final Urine,Clean Catch 12/02/17 13:51 Blood Culture - Preliminary Blood No Growth after 24 hours Assessment and Plan (1) Perforated diverticulum of large intestine Current Visit: Yes Status: Acute Code(s): K57.20 - DVTRCLI OF LG INT W PERFORATION AND ABSCESS W/O BLEEDING SNOMED Code(s): 684398683 (2) Morbid obesity due to excess calories Current Visit: Yes Status: Acute Code(s): E66.01 - MORBID (SEVERE) OBESITY DUE TO EXCESS CALORIES SNOMED Code(s): 291276322 Plan: 1. Patient was reassessed this evening after I was called when she developed a fever 102.1. A stat repeat CT of the abdomen and pelvis was ordered to review any new free air or changes of an intra-abdominal abscess. Findings in fact demonstrates improvement of her abscess. 2. The patient adamantly wants to avoid a colostomy. Clinically she is improving. Alternatives such as diagnostic laparoscopy and placement of drain were reviewed if she developed a large intraperitoneal abscess not amenable by interventional radiology. 3. Clinically, her abdominal pain did improve as compared to this morning and afternoon assessment. Per request of the patient, we'll continue conservative management. 4. Potential inpatient hospitalization for 3-4 days pending resolution of white count and control of abdominal pain. 5. Recommend ice chips or popsicles. Do not advance diet beyond clear liquids.
--- NOTE | 2017-12-03 17:20 | CT ---
EXAMINATION TYPE: CT abdomen pelvis w con DATE OF EXAM: 12/03/2017 COMPARISON: Yesterday HISTORY: Pre surgical planning. Pelvic pain. CT DLP: 1855.2 mGycm Automated exposure control for dose reduction was used. TECHNIQUE: Helical acquisition of images was performed from the lung bases through the pelvis. CONTRAST: Performed without Oral Contrast and with IV Contrast, patient injected with 80 mL of Visipaque 320. FINDINGS: There is some mild pleural thickening and subsegmental atelectasis at the right lung base. There is n o pleural effusion. Liver spleen pancreas appear normal. Gallbladder appears normal. Bile ducts are n ot dilated. There are bilateral renal cortical cysts that measure up to 2 cm. There is no hydronephro sis. There is no retroperitoneal adenopathy. There is no adrenal mass. There is no ascites. Bladder is filled with contrast. There is a 5 cm fluid collection in the pelvis adjacent to the rectosigmoid colon. There are multiple sigmoid diverticula. There are some inflammato ry changes around the sigmoid colon with diverticula. Hysterectomy is noted. There is multilevel spon dylosis in the lumbar spine. There is severe L3-4 bony spinal stenosis. IMPRESSION: PELVIC FLUID COLLECTION WITH SIGMOID DIVERTICULA CONSISTENT WITH PERIDIVERTICULAR ABSCESS. THIS IS UN CHANGED COMPARED TO YESTERDAY. SEVERE L3-4 BONY SPINAL STENOSIS.
[2017-12-03 17:47] LABS: Glucose,Whole Blood 99 mg/dL (75-99)
[2017-12-03 20:42] LABS: Glucose,Whole Blood 109 mg/dL (75-99)
[2017-12-03 23:11] VITALS: BMI 37.9
[2017-12-04] MEDS: HYDROmorphone 1 MG/ML 1 ML SYRINGE IVP PRN ×4 (00:09→22:26)
[2017-12-04 04:35] LABS: Basophils % (A) 0 %; Eosinophils % (A) 0 %; HCT 32.9 % (34.0-46.0); HGB 10.4 gm/dL (11.4-16.0); Lymphocytes # (A) 0.7 k/uL (1.0-4.8); Lymphocytes % (A) 6 %; MCH 26.9 pg (25.0-35.0); MCHC 31.6 g/dL (31.0-37.0); MCV 84.9 fL (80.0-100.0); Mean Platelet Volume 8.7; Monocytes # (A) 0.6 k/uL (0-1.0); Monocytes % (A) 6 %; Neutrophils # (A) 9.9 k/uL (1.3-7.7); Neutrophils % (A) 86 %; Platelet Count 167 k/uL (150-450); RBC 3.88 m/uL (3.80-5.40); RDW 14.5 % (11.5-15.5); WBC 11.5 k/uL (3.8-10.6)
[2017-12-04] MEDS: ACETAMINOPHEN TAB 325 MG TAB PO PRN ×2 (04:41→14:12)
[2017-12-04 04:45] LABS: ALT 39 U/L (9-52); AST 19 U/L (14-36); Alkaline Phosphatase 86 U/L (38-126); Anion Gap 11 mmol/L; Blood Urea Nitrogen 12 mg/dL (7-17); Calcium 8.9 mg/dL (8.4-10.2); Carbon Dioxide 25 mmol/L (22-30); Chloride 99 mmol/L (98-107); Glucose 117 mg/dL (74-99); Magnesium 1.5 mg/dL (1.6-2.3); Phosphorus 3.1 mg/dL (2.5-4.5); Potassium 3.2 mmol/L (3.5-5.1); Sodium 135 mmol/L (137-145); Total Bilirubin 0.4 mg/dL (0.2-1.3); Total Protein 5.3 g/dL (6.3-8.2)
[2017-12-04 07:49] LABS: Glucose,Whole Blood 111 mg/dL (75-99)
[2017-12-04] MEDS: INSULIN ASPART 100 UNIT/ML 1 ML 10 ML VIAL SQ SCH ×4 (07:50→22:22)
[2017-12-04] MEDS: GABAPENTIN 400 MG CAP PO SCH ×3 (07:52→21:03)
[2017-12-04] MEDS: FLUTICASONE 50MCG/SPRAY NASAL 16GM EA NOSTRIL SCH (07:52)
[2017-12-04] MEDS: FAMOTIDINE 20 MG/2 ML VIAL IV SCH ×2 (07:52→21:03)
[2017-12-04] MEDS: PIPERACILLIN-TAZOBACTAM 3.375 GM in DEXTROSE/WATER 1 50ML.BAG IVPB SCH ×3 (07:53→23:27)
[2017-12-04] MEDS: ONDANSETRON 4 MG/2 ML VIAL IVP PRN ×2 (09:29→23:53)
[2017-12-04] MEDS ORDERED: POTASSIUM CHLORIDE 20 MEQ in WATER FOR INJECTION 1 100ML.BAG IVPB STA (10:22)
--- NOTE | 2017-12-04 11:05 | P.PN ---
<Ana Francisco - Last Filed: 12/04/17 11:07> Subjective Progress Note Date: 12/04/17 67-year-old female seen and examined at bedside. Patient states there is a improvement in the abdominal pain this morning. is able to ambulate from the bed to the bathroom and urinate without pain in the lower abdomen. He should states is having painless bowel movements no blood in stool Did note the patient did have a temp of 101.3 at 2:30 in the morning current temp is documented 98.4. Objective - Vital Signs Vital signs: Vital Signs Temp 98.4 F 12/04/17 07:00 Pulse 83 12/04/17 07:00 Resp 16 12/04/17 07:00 BP 146/70 12/04/17 07:00 Pulse Ox 96 12/04/17 07:00 Intake & Output 12/03/17 12/04/17 12/04/17 18:59 06:59 18:59 Intake Total 480 Balance 480 Intake: Oral 480 Other: Voiding Method Toilet Toilet # Voids 3 4 # Bowel Movements 0 - Exam Physical exam 67-year-old female resting in bed states abdominal pain has improved this morning Lungs adequate air movement bilaterally no shortness of breath no cough Heart S1-S2 audible regular Abdomen soft not distended bowel tones present states improvement in the abdominal pain slight tenderness to the bilateral lower quadrants states urinating no difficulty no reports of nausea vomiting states stooling lower suprapubic area open ulcerative area noted nondraining Extremities no edema noted - Labs CBC & Chem 7: 12/04/17 04:05 12/04/17 04:05 Labs: Abnormal Lab Results - Last 24 Hours (Table) 12/03/17 12/03/17 12/04/17 Range/Units 11:58 20:38 04:05 WBC 11.5 H (3.8-10.6) k/uL Hgb 10.4 L (11.4-16.0) gm/dL Hct 32.9 L (34.0-46.0) % Neutrophils # 9.9 H (1.3-7.7) k/uL Lymphocytes # 0.7 L (1.0-4.8) k/uL Sodium (137-145) mmol/L Potassium (3.5-5.1) mmol/L Glucose (74-99) mg/dL POC Glucose (mg/dL) 129 H 109 H (75-99) mg/dL Magnesium (1.6-2.3) mg/dL Total Protein (6.3-8.2) g/dL Albumin (3.5-5.0) g/dL 12/04/17 12/04/17 Range/Units 04:05 07:47 WBC (3.8-10.6) k/uL Hgb (11.4-16.0) gm/dL Hct (34.0-46.0) % Neutrophils # (1.3-7.7) k/uL Lymphocytes # (1.0-4.8) k/uL Sodium 135 L (137-145) mmol/L Potassium 3.2 L (3.5-5.1) mmol/L Glucose 117 H (74-99) mg/dL POC Glucose (mg/dL) 111 H (75-99) mg/dL Magnesium 1.5 L (1.6-2.3) mg/dL Total Protein 5.3 L (6.3-8.2) g/dL Albumin 3.0 L (3.5-5.0) g/dL Microbiology - Last 24 Hours (Table) 12/02/17 13:51 Urine Culture - Final Urine,Clean Catch 12/02/17 13:51 Blood Culture - Preliminary Blood No Growth after 24 hours Assessment and Plan Assessment: Impression Present on admission bilateral lower abdominal pain suspect due to diverticulitis with abscess CAT scan of the abdomen shows 4-5 cm phlegom sigmoid colon likely related to diverticulitis History of chronic constipation suspect due to opiate narcotic induced Febrile suspect due to diverticulitis with abscess Morbid Obesity BMI 37 due to excess calories Leukocytosis suspect secondary to a diverticular abscess Hypertension benign Present on admission bilateral lower abdominal pain due to Perforated diverticulum of large colon severe electrolyte abnormality hypo-magnesium, hypokalemia Plan Electrolytes to be replaced IV antibiotics Zosyn as ordered Possible OR for incision and drainage timing to be determined Pain control DVT GI prophylaxis Repeat labs in the morning Further recommendations pending Do not advance diet be on clear liquids for now continue to recommend ice chips or popsicles only Repeat labs in the morning. Patient continues to be adamant about wanting to avoid colostomy requesting conservative management Blood culture follow up on results Dr. beaulieu rounding on behalf of Dr. Morris The above impression and plan of care have been discussed and directed by signing physician. Ana Francisco nurse practitioner acting as scribe for signing physician. <Ken Jones - Last Filed: 12/04/17 18:29> Objective - Vital Signs Vital signs: Vital Signs Temp 98.1 F 12/04/17 15:00 Pulse 74 12/04/17 15:00 Resp 16 12/04/17 15:00 BP 147/92 12/04/17 15:00 Pulse Ox 93 L 12/04/17 15:00 Intake & Output 12/03/17 12/04/17 12/04/17 18:59 06:59 18:59 Intake Total 480 Balance 480 Intake: Oral 480 Other: Voiding Method Toilet Toilet # Voids 3 4 2 # Bowel Movements 0 0 - Labs CBC & Chem 7: 12/04/17 04:05 12/04/17 04:05 Labs: Abnormal Lab Results - Last 24 Hours (Table) 12/03/17 12/04/17 12/04/17 Range/Units 20:38 04:05 04:05 WBC 11.5 H (3.8-10.6) k/uL Hgb 10.4 L (11.4-16.0) gm/dL Hct 32.9 L (34.0-46.0) % Neutrophils # 9.9 H (1.3-7.7) k/uL Lymphocytes # 0.7 L (1.0-4.8) k/uL Sodium 135 L (137-145) mmol/L Potassium 3.2 L (3.5-5.1) mmol/L Glucose 117 H (74-99) mg/dL POC Glucose (mg/dL) 109 H (75-99) mg/dL Magnesium 1.5 L (1.6-2.3) mg/dL Total Protein 5.3 L (6.3-8.2) g/dL Albumin 3.0 L (3.5-5.0) g/dL 12/04/17 12/04/17 Range/Units 07:47 12:09 WBC (3.8-10.6) k/uL Hgb (11.4-16.0) gm/dL Hct (34.0-46.0) % Neutrophils # (1.3-7.7) k/uL Lymphocytes # (1.0-4.8) k/uL Sodium (137-145) mmol/L Potassium (3.5-5.1) mmol/L Glucose (74-99) mg/dL POC Glucose (mg/dL) 111 H 102 H (75-99) mg/dL Magnesium (1.6-2.3) mg/dL Total Protein (6.3-8.2) g/dL Albumin (3.5-5.0) g/dL Microbiology - Last 24 Hours (Table) 12/02/17 13:51 Blood Culture - Preliminary Blood No Growth after 48 hours 12/02/17 13:51 Urine Culture - Final Urine,Clean Catch Assessment and Plan Plan: The patient states she feels better. Her pain is improved. On exam her abdomen is soft. There is minimal tenderness left lower quadrant. Patient will be reevaluated in the a.m. If her pain has improved we will start her on a diet.
[2017-12-04] MEDS: SODIUM CHLORIDE 0.9% 1,000 ML IV SCH ×2 (11:10→21:03)
[2017-12-04] MEDS ORDERED: POTASSIUM CHLORIDE 20 MEQ, LIDOCAINE 2% INJ 20 MG in SODIUM CHLORIDE 0.9% 100 ML IVPB ONE (11:41)
--- NOTE | 2017-12-04 11:44 | P.PN ---
Subjective Progress Note Date: 12/04/17 Principal diagnosis: Abdominal pain. Feeling better, less diarrhea and abdominal pain. Objective - Vital Signs Vital signs: Vital Signs Temp 98.4 F 12/04/17 07:00 Pulse 83 12/04/17 07:00 Resp 16 12/04/17 07:00 BP 146/70 12/04/17 07:00 Pulse Ox 96 12/04/17 07:00 Intake & Output 12/03/17 12/04/17 12/04/17 18:59 06:59 18:59 Intake Total 480 Balance 480 Intake: Oral 480 Other: Voiding Method Toilet Toilet # Voids 3 4 # Bowel Movements 0 - Exam Constitutional: No acute distress, conversant, pleasant Eyes:Anicteric sclerae, moist conjunctiva, no lid-lag, PERRLA, ENMT: Oropharynx clear, no erythema, exudates Neck: Supple, FROM, no masses, or JVD, No carotid bruits, No thyromegaly Lungs: Clear to auscultation, Clear to percussion, Normal respiratory effort, no accessory muscle use Cardiovascular: Heart regular in rate and rhythm, No murmurs, gallops, or rubs, No peripheral edema Abdominal: Soft, tender especially in the suprapubic and periumbilical areas, no guarding, rebound or rigidity, Normoactive bowel sounds, No hepatomegaly, No splenomegaly, No palpable mass Skin: Normal temperature, tone, texture, turgor, no induration, No subcutaneous nodules, No rash, lesions, No ulcers Extremities: No digital cyanosis, No clubbing, Pedal pulses intact and symmetrical, Radial pulses intact and symmetrical, No calf tenderness Psychiatric: Alert and oriented to person, place and time, appropriate affect, intact judgement Neuro: Muscles Strength 5/5 in all 4 extremities, Sensation to light touch grossly present throughout, Cranial nerves II-XII grossly intact, no focal sensory deficits - Labs CBC & Chem 7: 12/04/17 04:05 12/04/17 04:05 Labs: Abnormal Lab Results - Last 24 Hours (Table) 12/03/17 12/03/17 12/04/17 Range/Units 11:58 20:38 04:05 WBC 11.5 H (3.8-10.6) k/uL Hgb 10.4 L (11.4-16.0) gm/dL Hct 32.9 L (34.0-46.0) % Neutrophils # 9.9 H (1.3-7.7) k/uL Lymphocytes # 0.7 L (1.0-4.8) k/uL Sodium (137-145) mmol/L Potassium (3.5-5.1) mmol/L Glucose (74-99) mg/dL POC Glucose (mg/dL) 129 H 109 H (75-99) mg/dL Magnesium (1.6-2.3) mg/dL Total Protein (6.3-8.2) g/dL Albumin (3.5-5.0) g/dL 12/04/17 12/04/17 Range/Units 04:05 07:47 WBC (3.8-10.6) k/uL Hgb (11.4-16.0) gm/dL Hct (34.0-46.0) % Neutrophils # (1.3-7.7) k/uL Lymphocytes # (1.0-4.8) k/uL Sodium 135 L (137-145) mmol/L Potassium 3.2 L (3.5-5.1) mmol/L Glucose 117 H (74-99) mg/dL POC Glucose (mg/dL) 111 H (75-99) mg/dL Magnesium 1.5 L (1.6-2.3) mg/dL Total Protein 5.3 L (6.3-8.2) g/dL Albumin 3.0 L (3.5-5.0) g/dL Microbiology - Last 24 Hours (Table) 12/02/17 13:51 Urine Culture - Final Urine,Clean Catch 12/02/17 13:51 Blood Culture - Preliminary Blood No Growth after 24 hours Assessment and Plan Plan: #1 Rectosigmoid diverticulosis with diverticular abscess: D/W surgery [employer]--plan for conservative management Continue Zosyn NPO IV fluids #2 Leukocytosis Likely secondary to #1 Improving Follow in a.m. #3 DM type 2: Hold oral meds BS controlled Check blood sugars every 6hrs SSI #4 Benign HTN: Hydralazine IV prn Hold BP meds as she is NPO. #5 Hx of asthma and COPD: Albuterol PRN #6 Fibromyalgia, GERD/Reflux, Hyperlipidemia, Rheumatoid Arthritis (RA): All stable Hold all oral meds.
[2017-12-04 12:11] LABS: Glucose,Whole Blood 102 mg/dL (75-99)
[2017-12-04] MEDS: METOPROLOL TARTRATE 50 MG TAB PO SCH (12:58)
[2017-12-04] MEDS: MAGNESIUM SULFATE-D5W PMX 1 GM in DEXTROSE/WATER 1 100ML.BAG IVPB SCH ×2 (13:28→14:34)
[2017-12-04] MEDS: HEPARIN SODIUM,PORCINE 5,000 UNIT/ML 1 ML VIAL SQ SCH ×2 (15:38→23:27)
[2017-12-04 17:58] LABS: Glucose,Whole Blood 96 mg/dL (75-99)
[2017-12-04] MEDS: LOSARTAN 50 MG TAB PO SCH (21:03)
[2017-12-04] MEDS: ATORVASTATIN 10 MG TAB PO SCH (21:03)
[2017-12-04] MEDS: MONTELUKAST 10 MG TAB PO SCH (21:03)
[2017-12-04] MEDS: DULoxetine HCL 60 MG CAPSULE.DR PO SCH (21:03)
[2017-12-04 21:20] LABS: Glucose,Whole Blood 82 mg/dL (75-99)
[2017-12-05] MEDS: HYDROmorphone 1 MG/ML 1 ML SYRINGE IVP PRN ×2 (02:50→07:51)
[2017-12-05] MEDS: SODIUM CHLORIDE 0.9% 1,000 ML IV SCH ×2 (06:10→16:20)
[2017-12-05 07:43] LABS: Glucose,Whole Blood 85 mg/dL (75-99)
[2017-12-05] MEDS: INSULIN ASPART 100 UNIT/ML 1 ML 10 ML VIAL SQ SCH ×4 (07:47→21:25)
[2017-12-05] MEDS: FAMOTIDINE 20 MG/2 ML VIAL IV SCH ×2 (07:52→21:14)
[2017-12-05] MEDS: FLUTICASONE 50MCG/SPRAY NASAL 16GM EA NOSTRIL SCH (07:52)
[2017-12-05] MEDS: GABAPENTIN 400 MG CAP PO SCH ×3 (07:52→21:17)
[2017-12-05] MEDS: HEPARIN SODIUM,PORCINE 5,000 UNIT/ML 1 ML VIAL SQ SCH ×2 (07:52→16:17)
[2017-12-05] MEDS: PIPERACILLIN-TAZOBACTAM 3.375 GM in DEXTROSE/WATER 1 50ML.BAG IVPB SCH ×2 (07:58→16:17)
[2017-12-05 08:18] LABS: Basophils % (A) 0 %; Eosinophils # (A) 0.1 k/uL (0-0.7); Eosinophils % (A) 1 %; HCT 29.9 % (34.0-46.0); HGB 9.2 gm/dL (11.4-16.0); Lymphocytes # (A) 0.9 k/uL (1.0-4.8); Lymphocytes % (A) 9 %; MCH 26.5 pg (25.0-35.0); MCHC 30.9 g/dL (31.0-37.0); MCV 85.8 fL (80.0-100.0); Monocytes # (A) 0.6 k/uL (0-1.0); Monocytes % (A) 6 %; Neutrophils # (A) 8.1 k/uL (1.3-7.7); Neutrophils % (A) 82 %; Platelet Count 188 k/uL (150-450); RBC 3.48 m/uL (3.80-5.40); WBC 9.9 k/uL (3.8-10.6)
[2017-12-05 08:22] LABS: ALT 37 U/L (9-52); AST 20 U/L (14-36); Albumin 2.8 g/dL (3.5-5.0); Alkaline Phosphatase 108 U/L (38-126); Anion Gap 10 mmol/L; Blood Urea Nitrogen 14 mg/dL (7-17); Calcium 8.7 mg/dL (8.4-10.2); Carbon Dioxide 27 mmol/L (22-30); Chloride 103 mmol/L (98-107); Glucose 90 mg/dL (74-99); Magnesium 1.8 mg/dL (1.6-2.3); Phosphorus 3.5 mg/dL (2.5-4.5); Potassium 3.6 mmol/L (3.5-5.1); Sodium 140 mmol/L (137-145); Total Bilirubin 0.2 mg/dL (0.2-1.3)
[2017-12-05 12:16] LABS: Glucose,Whole Blood 122 mg/dL (75-99)
[2017-12-05] MEDS: METOPROLOL TARTRATE 50 MG TAB PO SCH (12:59)
--- NOTE | 2017-12-05 13:55 | P.PN ---
<NolanAna M - Last Filed: 12/05/17 13:49> Subjective Progress Note Date: 12/05/17 67-year-old female seen and examined. Patient reports having an episode last evening of left lower quadrant pain radiated to the rectum felt nauseated. Patient stated the symptoms were relieved after receiving IV pain medication dilaudid patient stated had a bowel movement with the incident and it did seem to improve the pain in the left lower quadrant. Patient stated the incident occurred around 2 in the morning and has not had any further episodes has remained afebrile with a white count trending down to 9.9 this morning Objective - Vital Signs Vital signs: Vital Signs Temp 97.8 F 12/05/17 07:00 Pulse 86 12/05/17 07:00 Resp 16 12/05/17 07:00 BP 130/61 12/05/17 07:00 Pulse Ox 93 L 12/05/17 07:00 Intake & Output 12/04/17 12/05/17 12/05/17 18:59 06:59 18:59 Intake Total 200 Balance 200 Intake: Oral 200 Other: Voiding Method Toilet Toilet # Voids 2 1 # Bowel Movements 0 - Exam Physical exam 67-year-old female resting in bed denies any nausea vomiting and states the left lower quadrant abdominal pain improving Lungs adequate air movement bilaterally no shortness of breath no cough Heart S1-S2 audible regular Abdomen soft not distended bowel tones present states improvement in the abdominal pain slight tenderness to the bilateral lower quadrants states urinating no difficulty no reports of nausea vomiting states had 3 bowel movements today Extremities no edema noted - Labs CBC & Chem 7: 12/05/17 07:32 12/05/17 07:32 Labs: Abnormal Lab Results - Last 24 Hours (Table) 12/05/17 12/05/17 12/05/17 Range/Units 07:32 07:32 12:13 RBC 3.48 L (3.80-5.40) m/uL Hgb 9.2 L (11.4-16.0) gm/dL Hct 29.9 L (34.0-46.0) % MCHC 30.9 L (31.0-37.0) g/dL Neutrophils # 8.1 H (1.3-7.7) k/uL Lymphocytes # 0.9 L (1.0-4.8) k/uL POC Glucose (mg/dL) 122 H (75-99) mg/dL Total Protein 5.0 L (6.3-8.2) g/dL Albumin 2.8 L (3.5-5.0) g/dL Microbiology - Last 24 Hours (Table) 12/04/17 04:05 Blood Culture - Preliminary Blood No Growth after 24 hours 12/04/17 04:23 Blood Culture - Preliminary Blood No Growth after 24 hours 12/02/17 13:51 Blood Culture - Preliminary Blood No Growth after 48 hours Assessment and Plan Assessment: Impression Present on admission bilateral lower abdominal pain suspect due to diverticulitis with abscess CAT scan of the abdomen shows 4-5 cm phlegom sigmoid colon likely related to diverticulitis History of chronic constipation suspect due to opiate narcotic induced Febrile suspect due to diverticulitis with abscess Morbid Obesity BMI 37 due to excess calories Leukocytosis suspect secondary to a diverticular abscess Hypertension benign Present on admission bilateral lower abdominal pain due to Perforated diverticulum of large colon severe electrolyte abnormality hypo-magnesium, hypokalemia Plan Electrolytes to be replaced IV antibiotics Zosyn as ordered Pain control DVT GI prophylaxis Repeat labs in the morning Further recommendations pending Start on clear liquids monitor the response Patient continues to be adamant about wanting to avoid colostomy requesting conservative management Blood culture follow up on results Dr. christofer dupree on behalf of Dr. Morris The above impression and plan of care have been discussed and directed by signing physician. Ana Francisco nurse practitioner acting as scribe for signing physician. <Ken Jones - Last Filed: 12/05/17 16:23> Objective - Vital Signs Vital signs: Vital Signs Temp 98.1 F 12/05/17 15:00 Pulse 81 12/05/17 15:00 Resp 16 12/05/17 15:00 BP 121/76 12/05/17 15:00 Pulse Ox 94 L 12/05/17 15:00 Intake & Output 12/04/17 12/05/17 12/05/17 18:59 06:59 18:59 Intake Total 200 Balance 200 Weight 97.06 kg Intake: Oral 200 Other: Voiding Method Toilet Toilet # Voids 2 1 4 # Bowel Movements 0 3 - Labs CBC & Chem 7: 12/05/17 07:32 12/05/17 07:32 Labs: Abnormal Lab Results - Last 24 Hours (Table) 12/05/17 12/05/17 12/05/17 Range/Units 07:32 07:32 12:13 RBC 3.48 L (3.80-5.40) m/uL Hgb 9.2 L (11.4-16.0) gm/dL Hct 29.9 L (34.0-46.0) % MCHC 30.9 L (31.0-37.0) g/dL Neutrophils # 8.1 H (1.3-7.7) k/uL Lymphocytes # 0.9 L (1.0-4.8) k/uL POC Glucose (mg/dL) 122 H (75-99) mg/dL Total Protein 5.0 L (6.3-8.2) g/dL Albumin 2.8 L (3.5-5.0) g/dL Microbiology - Last 24 Hours (Table) 12/02/17 13:51 Blood Culture - Preliminary Blood No Growth after 72 hours 12/04/17 04:05 Blood Culture - Preliminary Blood No Growth after 24 hours 12/04/17 04:23 Blood Culture - Preliminary Blood No Growth after 24 hours Assessment and Plan Assessment: The patient still has complaints of lower quadrant abdominal pain. She's had a bowel movement. On exam her vital signs are stable. Her abdomen soft. Patient will have her diet increased in the a.m. <Rafaela Morris N - Last Filed: 12/05/17 18:47> Objective - Vital Signs Vital signs: Vital Signs Temp 98.1 F 12/05/17 15:00 Pulse 81 12/05/17 15:00 Resp 16 12/05/17 15:00 BP 121/76 12/05/17 15:00 Pulse Ox 94 L 12/05/17 15:00 Intake & Output 12/04/17 12/05/17 12/05/17 18:59 06:59 18:59 Intake Total 200 Balance 200 Weight 97.06 kg Intake: Oral 200 Other: Voiding Method Toilet Toilet # Voids 2 1 4 # Bowel Movements 0 3 - Labs CBC & Chem 7: 12/05/17 07:32 12/05/17 07:32 Labs: Abnormal Lab Results - Last 24 Hours (Table) 12/05/17 12/05/17 12/05/17 Range/Units 07:32 07:32 12:13 RBC 3.48 L (3.80-5.40) m/uL Hgb 9.2 L (11.4-16.0) gm/dL Hct 29.9 L (34.0-46.0) % MCHC 30.9 L (31.0-37.0) g/dL Neutrophils # 8.1 H (1.3-7.7) k/uL Lymphocytes # 0.9 L (1.0-4.8) k/uL POC Glucose (mg/dL) 122 H (75-99) mg/dL Total Protein 5.0 L (6.3-8.2) g/dL Albumin 2.8 L (3.5-5.0) g/dL Microbiology - Last 24 Hours (Table) 12/02/17 13:51 Blood Culture - Preliminary Blood No Growth after 72 hours 12/04/17 04:05 Blood Culture - Preliminary Blood No Growth after 24 hours 12/04/17 04:23 Blood Culture - Preliminary Blood No Growth after 24 hours Assessment and Plan (1) Perforated diverticulum of large intestine Current Visit: Yes Status: Acute Code(s): K57.20 - DVTRCLI OF LG INT W PERFORATION AND ABSCESS W/O BLEEDING SNOMED Code(s): 118970901 (2) Morbid obesity due to excess calories Current Visit: Yes Status: Acute Code(s): E66.01 - MORBID (SEVERE) OBESITY DUE TO EXCESS CALORIES SNOMED Code(s): 675886693 Plan: Patient clinically improving. Coverage provided by Dr. Jones.
--- NOTE | 2017-12-05 14:43 | P.PN ---
Subjective Progress Note Date: 12/05/17 Principal diagnosis: Abdominal pain. Patient is still having some lower abdominal pain kota when having a bowel movement. Objective - Vital Signs Vital signs: Vital Signs Temp 97.8 F 12/05/17 07:00 Pulse 86 12/05/17 07:00 Resp 16 12/05/17 07:00 BP 130/61 12/05/17 07:00 Pulse Ox 93 L 12/05/17 07:00 Intake & Output 12/04/17 12/05/17 12/05/17 18:59 06:59 18:59 Intake Total 200 Balance 200 Intake: Oral 200 Other: Voiding Method Toilet Toilet # Voids 2 1 4 # Bowel Movements 0 3 - Exam Constitutional: No acute distress, conversant, pleasant Eyes:Anicteric sclerae, moist conjunctiva, no lid-lag, PERRLA, ENMT: Oropharynx clear, no erythema, exudates Neck: Supple, FROM, no masses, or JVD, No carotid bruits, No thyromegaly Lungs: Clear to auscultation, Clear to percussion, Normal respiratory effort, no accessory muscle use Cardiovascular: Heart regular in rate and rhythm, No murmurs, gallops, or rubs, No peripheral edema Abdominal: Soft, tender especially in the suprapubic and periumbilical areas, no guarding, rebound or rigidity, Normoactive bowel sounds, No hepatomegaly, No splenomegaly, No palpable mass Skin: Normal temperature, tone, texture, turgor, no induration, No subcutaneous nodules, No rash, lesions, No ulcers Extremities: No digital cyanosis, No clubbing, Pedal pulses intact and symmetrical, Radial pulses intact and symmetrical, No calf tenderness Psychiatric: Alert and oriented to person, place and time, appropriate affect, intact judgement Neuro: Muscles Strength 5/5 in all 4 extremities, Sensation to light touch grossly present throughout, Cranial nerves II-XII grossly intact, no focal sensory deficits - Labs CBC & Chem 7: 12/05/17 07:32 12/05/17 07:32 Labs: Abnormal Lab Results - Last 24 Hours (Table) 12/05/17 12/05/17 12/05/17 Range/Units 07:32 07:32 12:13 RBC 3.48 L (3.80-5.40) m/uL Hgb 9.2 L (11.4-16.0) gm/dL Hct 29.9 L (34.0-46.0) % MCHC 30.9 L (31.0-37.0) g/dL Neutrophils # 8.1 H (1.3-7.7) k/uL Lymphocytes # 0.9 L (1.0-4.8) k/uL POC Glucose (mg/dL) 122 H (75-99) mg/dL Total Protein 5.0 L (6.3-8.2) g/dL Albumin 2.8 L (3.5-5.0) g/dL Microbiology - Last 24 Hours (Table) 12/04/17 04:05 Blood Culture - Preliminary Blood No Growth after 24 hours 12/04/17 04:23 Blood Culture - Preliminary Blood No Growth after 24 hours 12/02/17 13:51 Blood Culture - Preliminary Blood No Growth after 48 hours Assessment and Plan Plan: #1 Rectosigmoid diverticulosis with diverticular abscess: D/W surgery [employer] again today Continue Zosyn Start clear liquid diet tomorrow Continue IV fluids #2 Leukocytosis Likely secondary to #1 Improving Follow in a.m. #3 DM type 2: Hold oral meds BS controlled Check blood sugars every 6hrs SSI #4 Benign HTN: Hydralazine IV prn Hold BP meds as she is NPO. #5 Hx of asthma and COPD: Albuterol PRN #6 Fibromyalgia, GERD/Reflux, Hyperlipidemia, Rheumatoid Arthritis (RA): All stable Hold all oral meds.
[2017-12-05 17:20] LABS: Glucose,Whole Blood 89 mg/dL (75-99)
[2017-12-05] MEDS: HYDROmorphone 2 MG/ML 1 ML SYRINGE IVP PRN ×2 (19:15→23:55)
[2017-12-05] MEDS: DULoxetine HCL 60 MG CAPSULE.DR PO SCH (21:12)
[2017-12-05] MEDS: MONTELUKAST 10 MG TAB PO SCH (21:13)
[2017-12-05] MEDS: LOSARTAN 50 MG TAB PO SCH (21:14)
[2017-12-05] MEDS: ATORVASTATIN 10 MG TAB PO SCH (21:15)
[2017-12-05 21:17] LABS: Glucose,Whole Blood 116 mg/dL (75-99)
[2017-12-06] MEDS: PIPERACILLIN-TAZOBACTAM 3.375 GM in DEXTROSE/WATER 1 50ML.BAG IVPB SCH ×3 (00:36→16:14)
[2017-12-06] MEDS: HEPARIN SODIUM,PORCINE 5,000 UNIT/ML 1 ML VIAL SQ SCH ×3 (00:37→16:14)
[2017-12-06] MEDS: SODIUM CHLORIDE 0.9% 1,000 ML IV SCH ×2 (04:47→14:34)
[2017-12-06] MEDS: HYDROmorphone 2 MG/ML 1 ML SYRINGE IVP PRN ×2 (05:34→17:41)
[2017-12-06 07:28] LABS: Glucose,Whole Blood 91 mg/dL (75-99)
[2017-12-06 07:54] LABS: Basophils % (A) 0 %; Eosinophils # (A) 0.1 k/uL (0-0.7); Eosinophils % (A) 2 %; HCT 29.2 % (34.0-46.0); HGB 9.1 gm/dL (11.4-16.0); Lymphocytes # (A) 1.2 k/uL (1.0-4.8); Lymphocytes % (A) 15 %; MCH 26.8 pg (25.0-35.0); MCHC 31.3 g/dL (31.0-37.0); MCV 85.5 fL (80.0-100.0); Mean Platelet Volume 8.4; Monocytes # (A) 0.5 k/uL (0-1.0); Monocytes % (A) 6 %; Neutrophils # (A) 6.1 k/uL (1.3-7.7); Neutrophils % (A) 75 %; Platelet Count 209 k/uL (150-450); RBC 3.41 m/uL (3.80-5.40); WBC 8.1 k/uL (3.8-10.6)
[2017-12-06 08:21] LABS: ALT 44 U/L (9-52); AST 23 U/L (14-36); Albumin 2.7 g/dL (3.5-5.0); Alkaline Phosphatase 106 U/L (38-126); Anion Gap 9 mmol/L; Blood Urea Nitrogen 13 mg/dL (7-17); Calcium 8.9 mg/dL (8.4-10.2); Carbon Dioxide 28 mmol/L (22-30); Chloride 103 mmol/L (98-107); Glucose 93 mg/dL (74-99); Potassium 3.5 mmol/L (3.5-5.1); Sodium 140 mmol/L (137-145); Total Bilirubin 0.2 mg/dL (0.2-1.3); Total Protein 4.9 g/dL (6.3-8.2)
[2017-12-06] MEDS: INSULIN ASPART 100 UNIT/ML 1 ML 10 ML VIAL SQ SCH ×4 (08:21→21:09)
[2017-12-06] MEDS: FAMOTIDINE 20 MG/2 ML VIAL IV SCH ×2 (08:57→21:07)
[2017-12-06] MEDS: FLUTICASONE 50MCG/SPRAY NASAL 16GM EA NOSTRIL SCH (09:09)
[2017-12-06] MEDS: GABAPENTIN 400 MG CAP PO SCH ×3 (09:09→21:05)
--- NOTE | 2017-12-06 10:44 | P.PN ---
Progress Note - Text Progress Note Date: 12/06/17 The patient's lungs complaints of diarrhea. She states her pain is slightly improved in the left lower quadrant. On exam her vital signs are stable. Her abdomen soft. There is some minimal tenderness left lower quadrant. Resolving diverticulitis. Patient will start on full liquid diet today.
[2017-12-06 11:48] LABS: Glucose,Whole Blood 103 mg/dL (75-99)
[2017-12-06] MEDS: METOPROLOL TARTRATE 50 MG TAB PO SCH (12:33)
--- NOTE | 2017-12-06 15:44 | P.PN ---
Subjective Principal diagnosis: Abdominal pain. Patient is still having pain with the bowel movements. She just had some blood in her bowel movement. Objective - Vital Signs Vital signs: Vital Signs Temp 98.0 F 12/06/17 12:31 Pulse 82 12/06/17 12:31 Resp 19 12/06/17 12:31 BP 135/75 12/06/17 12:31 Pulse Ox 96 12/06/17 12:31 Intake & Output 12/05/17 12/06/17 12/06/17 18:59 06:59 18:59 Weight 97.06 kg Other: Voiding Method Toilet Toilet # Voids 4 1 1 # Bowel Movements 3 1 - Exam Constitutional: No acute distress, conversant, pleasant Eyes:Anicteric sclerae, moist conjunctiva, no lid-lag, PERRLA, ENMT: Oropharynx clear, no erythema, exudates Neck: Supple, FROM, no masses, or JVD, No carotid bruits, No thyromegaly Lungs: Clear to auscultation, Clear to percussion, Normal respiratory effort, no accessory muscle use Cardiovascular: Heart regular in rate and rhythm, No murmurs, gallops, or rubs, No peripheral edema Abdominal: Soft, tender especially in the suprapubic and periumbilical areas, no guarding, rebound or rigidity, Normoactive bowel sounds, No hepatomegaly, No splenomegaly, No palpable mass Skin: Normal temperature, tone, texture, turgor, no induration, No subcutaneous nodules, No rash, lesions, No ulcers Extremities: No digital cyanosis, No clubbing, Pedal pulses intact and symmetrical, Radial pulses intact and symmetrical, No calf tenderness Psychiatric: Alert and oriented to person, place and time, appropriate affect, intact judgement Neuro: Muscles Strength 5/5 in all 4 extremities, Sensation to light touch grossly present throughout, Cranial nerves II-XII grossly intact, no focal sensory deficits - Labs CBC & Chem 7: 12/06/17 07:26 12/06/17 07:26 Labs: Abnormal Lab Results - Last 24 Hours (Table) 12/05/17 12/06/17 12/06/17 Range/Units 21:12 07:26 07:26 RBC 3.41 L (3.80-5.40) m/uL Hgb 9.1 L (11.4-16.0) gm/dL Hct 29.2 L (34.0-46.0) % POC Glucose (mg/dL) 116 H (75-99) mg/dL Total Protein 4.9 L (6.3-8.2) g/dL Albumin 2.7 L (3.5-5.0) g/dL 12/06/17 Range/Units 11:46 RBC (3.80-5.40) m/uL Hgb (11.4-16.0) gm/dL Hct (34.0-46.0) % POC Glucose (mg/dL) 103 H (75-99) mg/dL Total Protein (6.3-8.2) g/dL Albumin (3.5-5.0) g/dL Microbiology - Last 24 Hours (Table) 12/04/17 04:23 Blood Culture - Final Blood 12/04/17 04:05 Blood Culture - Preliminary Blood No Growth after 48 hours 12/02/17 13:51 Blood Culture - Preliminary Blood No Growth after 72 hours Assessment and Plan Plan: #1 Rectosigmoid diverticulosis with diverticular abscess/GI bleeding: Continue Zosyn Currently on full liquids Continue IV fluids GI bleeding is likely secondary to the colon wall inflammation Check hemoglobin in the morning #2 Leukocytosis Likely secondary to #1 Resolved #3 DM type 2: Hold oral meds BS controlled Check blood sugars every 6hrs SSI #4 Benign HTN: Continue home BP meds #5 Hx of asthma and COPD: Albuterol PRN #6 Fibromyalgia, GERD/Reflux, Hyperlipidemia, Rheumatoid Arthritis (RA): All stable Continue oral meds.
[2017-12-06] MEDS: PANTOPRAZOLE 40 MG TABLET PO SCH (16:14)
[2017-12-06 16:36] LABS: Glucose,Whole Blood 106 mg/dL (75-99)
[2017-12-06 20:49] LABS: Glucose,Whole Blood 100 mg/dL (75-99)
[2017-12-06] MEDS: LOSARTAN 50 MG TAB PO SCH (21:03)
[2017-12-06] MEDS: ATORVASTATIN 10 MG TAB PO SCH (21:04)
[2017-12-06] MEDS: MONTELUKAST 10 MG TAB PO SCH (21:05)
[2017-12-06] MEDS: DULoxetine HCL 60 MG CAPSULE.DR PO SCH (21:05)
[2017-12-07] MEDS: HEPARIN SODIUM,PORCINE 5,000 UNIT/ML 1 ML VIAL SQ SCH ×3 (00:05→17:03)
[2017-12-07] MEDS: PIPERACILLIN-TAZOBACTAM 3.375 GM in DEXTROSE/WATER 1 50ML.BAG IVPB SCH ×3 (00:06→16:44)
[2017-12-07] MEDS: SODIUM CHLORIDE 0.9% 1,000 ML IV SCH ×3 (00:10→17:35)
[2017-12-07] MEDS: HYDROmorphone 2 MG/ML 1 ML SYRINGE IVP PRN ×2 (03:20→21:31)
[2017-12-07 05:38] LABS: HCT 29.6 % (34.0-46.0); HGB 9.4 gm/dL (11.4-16.0); Hypochromasia Slight; MCH 26.6 pg (25.0-35.0); MCHC 31.6 g/dL (31.0-37.0); MCV 84.2 fL (80.0-100.0); Mean Platelet Volume 8.8; Platelet Count 222 k/uL (150-450); RBC 3.52 m/uL (3.80-5.40); RDW 14.2 % (11.5-15.5); WBC 7.7 k/uL (3.8-10.6)
[2017-12-07 06:02] LABS: Anion Gap 9 mmol/L; Blood Urea Nitrogen 11 mg/dL (7-17); Calcium 8.9 mg/dL (8.4-10.2); Carbon Dioxide 28 mmol/L (22-30); Chloride 103 mmol/L (98-107); Glucose 92 mg/dL (74-99); Magnesium 1.5 mg/dL (1.6-2.3); Phosphorus 3.8 mg/dL (2.5-4.5); Potassium 3.8 mmol/L (3.5-5.1); Sodium 140 mmol/L (137-145)
[2017-12-07 07:26] LABS: Glucose,Whole Blood 91 mg/dL (75-99)
[2017-12-07] MEDS: INSULIN ASPART 100 UNIT/ML 1 ML 10 ML VIAL SQ SCH ×4 (07:37→21:43)
[2017-12-07] MEDS: PANTOPRAZOLE 40 MG TABLET PO SCH (07:54)
[2017-12-07] MEDS: FLUTICASONE 50MCG/SPRAY NASAL 16GM EA NOSTRIL SCH (09:05)
[2017-12-07] MEDS: FAMOTIDINE 20 MG/2 ML VIAL IV SCH ×2 (09:06→21:42)
[2017-12-07] MEDS: GABAPENTIN 400 MG CAP PO SCH ×3 (09:06→21:43)
--- NOTE | 2017-12-07 11:03 | P.PN ---
Progress Note - Text Progress Note Date: 12/07/17 The patient feels better today. She states her pain is improved. Her diarrhea has improved as well. On exam her vital signs are stable. Her abdomen soft. There is minimal tenderness in the right left lower quadrants. Resolving diverticulitis. Patient will have her diet advanced. Dr. Wheat will see her in the a.m.
[2017-12-07 12:32] LABS: Glucose,Whole Blood 91 mg/dL (75-99)
[2017-12-07] MEDS: METOPROLOL TARTRATE 50 MG TAB PO SCH (13:00)
[2017-12-07] MEDS: MAGNESIUM SULFATE-D5W PMX 1 GM in DEXTROSE/WATER 1 100ML.BAG IVPB SCH ×2 (14:04→15:13)
--- NOTE | 2017-12-07 15:29 | P.PN ---
Subjective Progress Note Date: 12/07/17 Principal diagnosis: Abdominal pain. Still having lower abdominal pain and pain with the bowel movement. No hematochezia. Objective - Vital Signs Vital signs: Vital Signs Temp 99.6 F 12/07/17 11:50 Pulse 78 12/07/17 11:50 Resp 18 12/07/17 11:50 BP 172/98 12/07/17 11:50 Pulse Ox 97 12/07/17 11:50 Intake & Output 12/06/17 12/07/17 12/07/17 18:59 06:59 18:59 Other: Voiding Method Toilet # Voids 1 1 1 # Bowel Movements 1 1 1 - Exam Constitutional: No acute distress, conversant, pleasant Eyes:Anicteric sclerae, moist conjunctiva, no lid-lag, PERRLA, ENMT: Oropharynx clear, no erythema, exudates Neck: Supple, FROM, no masses, or JVD, No carotid bruits, No thyromegaly Lungs: Clear to auscultation, Clear to percussion, Normal respiratory effort, no accessory muscle use Cardiovascular: Heart regular in rate and rhythm, No murmurs, gallops, or rubs, No peripheral edema Abdominal: Soft, tender especially in the suprapubic and periumbilical areas, no guarding, rebound or rigidity, Normoactive bowel sounds, No hepatomegaly, No splenomegaly, No palpable mass Skin: Normal temperature, tone, texture, turgor, no induration, No subcutaneous nodules, No rash, lesions, No ulcers Extremities: No digital cyanosis, No clubbing, Pedal pulses intact and symmetrical, Radial pulses intact and symmetrical, No calf tenderness Psychiatric: Alert and oriented to person, place and time, appropriate affect, intact judgement Neuro: Muscles Strength 5/5 in all 4 extremities, Sensation to light touch grossly present throughout, Cranial nerves II-XII grossly intact, no focal sensory deficits - Labs CBC & Chem 7: 12/07/17 05:26 12/07/17 05:26 Labs: Abnormal Lab Results - Last 24 Hours (Table) 12/06/17 12/06/17 12/07/17 Range/Units 16:32 20:47 05:26 RBC 3.52 L (3.80-5.40) m/uL Hgb 9.4 L (11.4-16.0) gm/dL Hct 29.6 L (34.0-46.0) % POC Glucose (mg/dL) 106 H 100 H (75-99) mg/dL Magnesium (1.6-2.3) mg/dL 12/07/17 Range/Units 05:26 RBC (3.80-5.40) m/uL Hgb (11.4-16.0) gm/dL Hct (34.0-46.0) % POC Glucose (mg/dL) (75-99) mg/dL Magnesium 1.5 L (1.6-2.3) mg/dL Microbiology - Last 24 Hours (Table) 12/04/17 04:23 Blood Culture Gram Stain - Final Blood Blood Culture - Final Micrococcus species 12/04/17 04:05 Blood Culture - Preliminary Blood No Growth after 72 hours 12/02/17 13:51 Blood Culture - Preliminary Blood No Growth after 96 hours 12/04/17 04:23 Blood Culture - Final Blood Assessment and Plan Plan: #1 Rectosigmoid diverticulosis with diverticular abscess/GI bleeding: Continue Zosyn Continue on full liquids Continue IV fluids GI bleeding is likely secondary to the colon wall inflammation Continue to follow hemoglobin Dr. Sloan to evaluate in am #2 Leukocytosis Likely secondary to #1 Resolved #3 DM type 2: Hold oral meds BS controlled Check blood sugars every 6hrs SSI #4 Benign HTN: Continue home BP meds #5 Hx of asthma and COPD: Albuterol PRN #6 Limited abdominal wall cellulitis Bacitracin bid. #7 Fibromyalgia, GERD/Reflux, Hyperlipidemia, Rheumatoid Arthritis (RA): All stable Continue oral meds.
[2017-12-07] MEDS: BACITRACIN 500 UNIT/GM OINT 28.4 GM TUBE TOPICAL SCH ×2 (17:16→21:43)
[2017-12-07 17:18] LABS: Glucose,Whole Blood 101 mg/dL (75-99)
[2017-12-07 21:31] LABS: Glucose,Whole Blood 100 mg/dL (75-99)
[2017-12-07] MEDS: ATORVASTATIN 10 MG TAB PO SCH (21:42)
[2017-12-07] MEDS: DULoxetine HCL 60 MG CAPSULE.DR PO SCH (21:42)
[2017-12-07] MEDS: LOSARTAN 50 MG TAB PO SCH (21:43)
[2017-12-07] MEDS: MONTELUKAST 10 MG TAB PO SCH (21:43)
[2017-12-08] MEDS: HEPARIN SODIUM,PORCINE 5,000 UNIT/ML 1 ML VIAL SQ SCH ×3 (00:31→16:10)
[2017-12-08] MEDS: PIPERACILLIN-TAZOBACTAM 3.375 GM in DEXTROSE/WATER 1 50ML.BAG IVPB SCH ×3 (00:31→16:10)
[2017-12-08] MEDS: SODIUM CHLORIDE 0.9% 1,000 ML IV SCH ×2 (00:31→08:09)
[2017-12-08] MEDS: HYDROmorphone 2 MG/ML 1 ML SYRINGE IVP PRN (02:04)
[2017-12-08 06:47] LABS: HCT 29.2 % (34.0-46.0); HGB 8.9 gm/dL (11.4-16.0); Hypochromasia Slight; MCH 26.3 pg (25.0-35.0); MCHC 30.6 g/dL (31.0-37.0); MCV 85.9 fL (80.0-100.0); Mean Platelet Volume 8.6; Platelet Count 233 k/uL (150-450); RDW 14.2 % (11.5-15.5); WBC 7.8 k/uL (3.8-10.6)
[2017-12-08 06:59] LABS: Glucose,Whole Blood 83 mg/dL (75-99)
[2017-12-08] MEDS: INSULIN ASPART 100 UNIT/ML 1 ML 10 ML VIAL SQ SCH ×4 (07:02→21:34)
[2017-12-08 07:03] LABS: Anion Gap 8 mmol/L; Blood Urea Nitrogen 8 mg/dL (7-17); Calcium 8.7 mg/dL (8.4-10.2); Carbon Dioxide 28 mmol/L (22-30); Chloride 103 mmol/L (98-107); Glucose 85 mg/dL (74-99); Magnesium 1.7 mg/dL (1.6-2.3); Phosphorus 3.9 mg/dL (2.5-4.5); Potassium 3.8 mmol/L (3.5-5.1); Sodium 139 mmol/L (137-145)
[2017-12-08] MEDS: PANTOPRAZOLE 40 MG TABLET PO SCH (07:03)
[2017-12-08] MEDS: BACITRACIN 500 UNIT/GM OINT 28.4 GM TUBE TOPICAL SCH ×3 (08:09→21:34)
[2017-12-08] MEDS: FAMOTIDINE 20 MG/2 ML VIAL IV SCH ×2 (08:09→21:33)
[2017-12-08] MEDS: FLUTICASONE 50MCG/SPRAY NASAL 16GM EA NOSTRIL SCH (08:09)
[2017-12-08] MEDS: GABAPENTIN 400 MG CAP PO SCH ×3 (08:09→21:33)
[2017-12-08] MEDS: ALBUTEROL NEBULIZED 2.5 MG/3 ML INHALATION PRN ×3 (08:42→19:25)
[2017-12-08] MEDS: METOPROLOL TARTRATE 50 MG TAB PO SCH (11:50)
[2017-12-08 11:58] LABS: Glucose,Whole Blood 126 mg/dL (75-99)
--- NOTE | 2017-12-08 13:15 | P.PN ---
Subjective Progress Note Date: 12/08/17 Principal diagnosis: Diverticular abscess Patient doing much better at this time. No pain presently. Some small loose stools. Tolerating diet. Would like more to eat. She is afebrile. White blood cell count normal. Objective - Vital Signs Vital signs: Vital Signs Temp 97.9 F 12/08/17 11:40 Pulse 75 12/08/17 11:40 Resp 20 12/08/17 11:40 BP 166/85 12/08/17 11:40 Pulse Ox 95 12/08/17 11:40 Intake & Output 12/07/17 12/08/17 12/08/17 18:59 06:59 18:59 Intake Total 120 Output Total 200 Balance -80 Intake: Oral 120 Output: Urine 200 Other: # Voids 1 1 # Bowel Movements 2 - Exam Abdomen: Soft, nondistended, small superficial 1 x 1 cm area of skin necrosis thought to be possibly related to heating pad while at home. No deeper tenderness appreciated - Labs CBC & Chem 7: 12/08/17 05:40 12/08/17 05:40 Labs: Abnormal Lab Results - Last 24 Hours (Table) 12/07/17 12/07/17 12/08/17 Range/Units 16:59 21:29 05:40 RBC 3.40 L (3.80-5.40) m/uL Hgb 8.9 L (11.4-16.0) gm/dL Hct 29.2 L (34.0-46.0) % MCHC 30.6 L (31.0-37.0) g/dL POC Glucose (mg/dL) 101 H 100 H (75-99) mg/dL 12/08/17 Range/Units 11:43 RBC (3.80-5.40) m/uL Hgb (11.4-16.0) gm/dL Hct (34.0-46.0) % MCHC (31.0-37.0) g/dL POC Glucose (mg/dL) 126 H (75-99) mg/dL Microbiology - Last 24 Hours (Table) 12/04/17 04:05 Blood Culture - Preliminary Blood No Growth after 96 hours 12/02/17 13:51 Blood Culture - Preliminary Blood No Growth after 120 hours 12/04/17 04:23 Blood Culture Gram Stain - Final Blood Blood Culture - Final Micrococcus species Assessment and Plan (1) Diverticulitis Narrative/Plan: Continue IV antibiotics. Advance to low fiber diet. Anticipate probable discharge tomorrow with plans for outpatient follow-up CAT scan later this week. Current Visit: Yes Status: Acute Code(s): K57.92 - DVTRCLI OF INTEST, PART UNSP, W/O PERF OR ABSCESS W/O BLEED SNOMED Code(s): 175460502
--- NOTE | 2017-12-08 15:51 | P.PN ---
Subjective Progress Note Date: 12/08/17 Principal diagnosis: Abdominal pain. Feeling better. Objective - Vital Signs Vital signs: Vital Signs Temp 97.9 F 12/08/17 11:40 Pulse 80 12/08/17 15:28 Resp 20 12/08/17 11:40 BP 166/85 12/08/17 11:40 Pulse Ox 95 12/08/17 11:40 Intake & Output 12/07/17 12/08/17 12/08/17 18:59 06:59 18:59 Intake Total 120 Output Total 200 Balance -80 Intake: Oral 120 Output: Urine 200 Other: # Voids 1 1 # Bowel Movements 2 - Exam Constitutional: No acute distress, conversant, pleasant Eyes:Anicteric sclerae, moist conjunctiva, no lid-lag, PERRLA, ENMT: Oropharynx clear, no erythema, exudates Neck: Supple, FROM, no masses, or JVD, No carotid bruits, No thyromegaly Lungs: Clear to auscultation, Clear to percussion, Normal respiratory effort, no accessory muscle use Cardiovascular: Heart regular in rate and rhythm, No murmurs, gallops, or rubs, No peripheral edema Abdominal: Soft, tender especially in the suprapubic and periumbilical areas, no guarding, rebound or rigidity, Normoactive bowel sounds, No hepatomegaly, No splenomegaly, No palpable mass Skin: Normal temperature, tone, texture, turgor, no induration, No subcutaneous nodules, No rash, lesions, No ulcers Extremities: No digital cyanosis, No clubbing, Pedal pulses intact and symmetrical, Radial pulses intact and symmetrical, No calf tenderness Psychiatric: Alert and oriented to person, place and time, appropriate affect, intact judgement Neuro: Muscles Strength 5/5 in all 4 extremities, Sensation to light touch grossly present throughout, Cranial nerves II-XII grossly intact, no focal sensory deficits - Labs CBC & Chem 7: 12/08/17 05:40 12/08/17 05:40 Labs: Abnormal Lab Results - Last 24 Hours (Table) 12/07/17 12/07/17 12/08/17 Range/Units 16:59 21:29 05:40 RBC 3.40 L (3.80-5.40) m/uL Hgb 8.9 L (11.4-16.0) gm/dL Hct 29.2 L (34.0-46.0) % MCHC 30.6 L (31.0-37.0) g/dL POC Glucose (mg/dL) 101 H 100 H (75-99) mg/dL 12/08/17 Range/Units 11:43 RBC (3.80-5.40) m/uL Hgb (11.4-16.0) gm/dL Hct (34.0-46.0) % MCHC (31.0-37.0) g/dL POC Glucose (mg/dL) 126 H (75-99) mg/dL Microbiology - Last 24 Hours (Table) 12/04/17 04:05 Blood Culture - Preliminary Blood No Growth after 96 hours 12/02/17 13:51 Blood Culture - Preliminary Blood No Growth after 120 hours 12/04/17 04:23 Blood Culture Gram Stain - Final Blood Blood Culture - Final Micrococcus species Assessment and Plan Plan: #1 Rectosigmoid diverticulosis with diverticular abscess/GI bleeding: Continue Zosyn Start low fiber diet per surgery Continue IV fluids Dr. Sloan's note reviewed. #2 Leukocytosis Likely secondary to #1 Resolved #3 DM type 2: Hold oral meds BS controlled Check blood sugars every 6hrs SSI #4 Benign HTN: Continue home BP meds #5 Hx of asthma and COPD: Albuterol PRN #6 Limited abdominal wall cellulitis Bacitracin bid. #7 Fibromyalgia, GERD/Reflux, Hyperlipidemia, Rheumatoid Arthritis (RA): All stable Continue oral meds.
[2017-12-08 17:09] LABS: Glucose,Whole Blood 101 mg/dL (75-99)
[2017-12-08] MEDS: ACETAMINOPHEN TAB 325 MG TAB PO PRN (18:37)
[2017-12-08 21:12] LABS: Glucose,Whole Blood 111 mg/dL (75-99)
[2017-12-08] MEDS: LOSARTAN 50 MG TAB PO SCH (21:33)
[2017-12-08] MEDS: MONTELUKAST 10 MG TAB PO SCH (21:33)
[2017-12-08] MEDS: ATORVASTATIN 10 MG TAB PO SCH (21:33)
[2017-12-08] MEDS: DULoxetine HCL 60 MG CAPSULE.DR PO SCH (21:33)
[2017-12-09] MEDS: PIPERACILLIN-TAZOBACTAM 3.375 GM in DEXTROSE/WATER 1 50ML.BAG IVPB SCH ×2 (00:56→07:58)
[2017-12-09] MEDS: HEPARIN SODIUM,PORCINE 5,000 UNIT/ML 1 ML VIAL SQ SCH ×2 (00:57→07:57)
[2017-12-09] MEDS: ACETAMINOPHEN TAB 325 MG TAB PO PRN (00:57)
[2017-12-09] MEDS: SODIUM CHLORIDE 0.9% 1,000 ML IV SCH (02:04)
[2017-12-09] MEDS: PANTOPRAZOLE 40 MG TABLET PO SCH (06:41)
[2017-12-09 07:08] LABS: Glucose,Whole Blood 102 mg/dL (75-99)
[2017-12-09] MEDS: INSULIN ASPART 100 UNIT/ML 1 ML 10 ML VIAL SQ SCH (07:41)
[2017-12-09] MEDS: BACITRACIN 500 UNIT/GM OINT 28.4 GM TUBE TOPICAL SCH (07:58)
[2017-12-09] MEDS: GABAPENTIN 400 MG CAP PO SCH (07:58)
[2017-12-09] MEDS: FAMOTIDINE 20 MG/2 ML VIAL IV SCH (07:58)
[2017-12-09] MEDS: FLUTICASONE 50MCG/SPRAY NASAL 16GM EA NOSTRIL SCH (08:00)
[2017-12-09 08:31] VITALS: RESP 20
[2017-12-09 12:06] LABS: Glucose,Whole Blood 98 mg/dL (75-99)
[2017-12-09] MEDS: METOPROLOL TARTRATE 50 MG TAB PO SCH (12:45)
--- NOTE | 2017-12-09 12:50 | P.PN ---
Subjective Progress Note Date: 12/09/17 Principal diagnosis: Diverticular abscess patient feeling better. Denies abdominal pain. Some rectal discomfort at times. She is afebrile. Objective - Vital Signs Vital signs: Vital Signs Temp 97.5 F L 12/09/17 08:30 Pulse 77 12/09/17 08:30 Resp 20 12/09/17 08:30 BP 151/74 12/09/17 09:30 Pulse Ox 96 12/09/17 08:30 Intake & Output 12/08/17 12/09/17 12/09/17 18:59 06:59 18:59 Intake Total 400 Balance 400 Intake: Oral 400 Other: # Voids 3 1 # Bowel Movements 2 - Exam abdomen: Soft, nondistended, nontender, small superficial wound healing appropriately - Labs CBC & Chem 7: 12/08/17 05:40 12/08/17 05:40 Labs: Abnormal Lab Results - Last 24 Hours (Table) 12/08/17 12/08/17 12/09/17 Range/Units 17:05 21:06 07:03 POC Glucose (mg/dL) 101 H 111 H 102 H (75-99) mg/dL Microbiology - Last 24 Hours (Table) 12/04/17 04:05 Blood Culture - Preliminary Blood No Growth after 120 hours 12/02/17 13:51 Blood Culture - Final Blood No Growth after 144 hours Assessment and Plan (1) Diverticulitis Narrative/Plan: Patient doing well at this time. Stable for discharge from my standpoint. Follow-up with me in 1 week in the office. Outpatient oral antibiotics. Repeat CAT scan next Friday. Current Visit: Yes Status: Acute Code(s): K57.92 - DVTRCLI OF INTEST, PART UNSP, W/O PERF OR ABSCESS W/O BLEED SNOMED Code(s): 550376038
[2017-12-09] MEDS ORDERED: LOSARTAN 50 MG TAB PO STA (12:56)
[2017-12-09 13:53] VITALS: BP 158/71; PULSE 70; TEMP 98.1
--- NOTE | 2017-12-09 16:51 | P.DS ---
Providers Date of admission: 12/02/17 16:25 Expected date of discharge: 12/09/17 Attending physician: Jovi Mariano MD Consults: 12/02/17 16:27 Consult Physician Stat Consulting Provider: Yves Hsu Reason/Comments: Diverticulitis Do you want consulting provider notified?: Yes Primary care physician: [place] Hospital Course: 67-year-old female presented emergency room with a chief complaint of abdominal pain over several weeks. She does admit that she's felt constipated, took a stool softener then was able to have a BM and while having it she was having rectal pain. She does admit some abdominal pressure with urination. Patient has also been having nausea, vomiting, general weakness, fevers and chills. Patient denies any shortness of breath, chest pain, numbness or tingling, dysuria or hematuria, headaches or visual changes, or any other complaints. Computed tomography scan of the abdomen and pelvis upon admission revealed rectosigmoid diverticulitis associated with 4.8 x 4.9 x 5.2 cm abscess, which was thought to be related to the diverticulitis. She was started on broad- spectrum antibiotic Zosyn IV. She general surgery was consulted, patient was seen by Dr. Hsu who thought that patient can be managed conservatively with IV antibiotics. Patient did not prefer to have a surgical intervention and a colostomy bag for this. Throughout the admission patient kept having symptoms of lower abdominal pressure, pain with defecation and occasional hematochezia. Patient initially was nothing by mouth, IV FLUIDS AND PAIN CONTROL MEDICATIONS. LATER IN THE HOSPITALIZATION SHE STARTED TO FEEL BETTER, and then she was started on a full liquid diet and then that was advanced to a low fiber diet. She tolerated that transition pretty well. He had multiple sets of blood cultures and all of those remained negative. Case was discussed with general surgery multiple times, on the day of discharge Dr. Hsu will order a follow- up computed tomography scan of the abdomen and pelvis in about a week time from now to follow-up on the abscess. Finally patient was discharged on oral antibiotics including Levaquin and Flagyl. For pain she was given some tramadol. Patient was instructed to follow up with general surgery after she has the abdomen/pelvis CT done. She was also instructed to follow-up with her primary care physician. Time for discharge 35 minutes Patient Condition at Discharge: Good Plan - Discharge Summary New Discharge Prescriptions: New Levofloxacin [Levaquin] 750 mg PO DAILY 10 Days #10 tab metroNIDAZOLE [Flagyl] 500 mg PO Q8HR 10 Days #30 tab traMADol HCL [Ultram] 50 mg PO Q6HR PRN 14 Days #50 tab PRN Reason: Pain Continue Triamterene/Hydrochlorothiazid [Triamterene-Hctz 37.5-25 mg Tb] 1 tab PO DAILY Simvastatin [Zocor] 10 mg PO HS Docusate [Colace] 100 mg PO DAILY PRN PRN Reason: Constipation Albuterol Sulfate [Proair Hfa] 1 - 2 puff INHALATION RT-Q6H PRN PRN Reason: sob Omeprazole [PriLOSEC] 20 mg PO DAILY Montelukast [Singulair] 10 mg PO HS Metoprolol Tartrate [Lopressor] 50 mg PO W/LUNCH Losartan Potassium [Cozaar] 100 mg PO HS Vitamin E (Dl,Tocopheryl Acet) [Vitamin E] 400 unit PO DAILY Gabapentin [Neurontin] 800 mg PO TID Fluticasone Nasal [place] [Flonase Nasal [place]] 1 spray EA NOSTRIL DAILY DULoxetine HCL [Cymbalta] 60 mg PO HS Calcium Polycarbophil [Fibercon] 625 mg PO DAILY Calcium Carbonate [Calcium] 600 mg PO DAILY Umeclidinium Brm/Vilanterol Tr [Anoro Ellipta 62.5-25 Mcg INH] 1 puff INHALATION RT-DAILY Pioglitazone [Actos] 15 mg PO DAILY Pyridoxine HCl (Vitamin B6) [Vitamin B-6] 100 mg PO DAILY Discharge Medication List Albuterol Sulfate [Proair Hfa] 1 - 2 puff INHALATION RT-Q6H PRN 12/02/17 [ History] Calcium Carbonate [Calcium] 600 mg PO DAILY 12/02/17 [History] Calcium Polycarbophil [Fibercon] 625 mg PO DAILY 12/02/17 [History] DULoxetine HCL [Cymbalta] 60 mg PO HS 12/02/17 [History] Docusate [Colace] 100 mg PO DAILY PRN 12/02/17 [History] Fluticasone Nasal [place] [Flonase Nasal [place]] 1 spray EA NOSTRIL DAILY 12/02/17 [History] Gabapentin [Neurontin] 800 mg PO TID 12/02/17 [History] Losartan Potassium [Cozaar] 100 mg PO HS 12/02/17 [History] Metoprolol Tartrate [Lopressor] 50 mg PO W/LUNCH 12/02/17 [History] Montelukast [Singulair] 10 mg PO HS 12/02/17 [History] Omeprazole [PriLOSEC] 20 mg PO DAILY 12/02/17 [History] Pioglitazone [Actos] 15 mg PO DAILY 12/02/17 [History] Pyridoxine HCl (Vitamin B6) [Vitamin B-6] 100 mg PO DAILY 12/02/17 [History] Simvastatin [Zocor] 10 mg PO HS 12/02/17 [History] Triamterene/Hydrochlorothiazid [Triamterene-Hctz 37.5-25 mg Tb] 1 tab PO DAILY 12/02/17 [History] Umeclidinium Brm/Vilanterol Tr [Anoro Ellipta 62.5-25 Mcg INH] 1 puff INHALATION RT-DAILY 12/02/17 [History] Vitamin E (Dl,Tocopheryl Acet) [Vitamin E] 400 unit PO DAILY 12/02/17 [History] Levofloxacin [Levaquin] 750 mg PO DAILY 10 Days #10 tab 12/09/17 [Rx] metroNIDAZOLE [Flagyl] 500 mg PO Q8HR 10 Days #30 tab 12/09/17 [Rx] traMADol HCL [Ultram] 50 mg PO Q6HR PRN 14 Days #50 tab 12/09/17 [Rx] Follow up Appointment(s)/Referral(s): Yves Hsu MD [Medical Doctor] - 12/18/17 10:20 am (Dec AT 10:20AM) Vignesh De Souza MD [Primary Care Provider] - 1-2 days Activity/Diet/Wound Care/Special Instructions: OK TO DISCHARGE HOME, CONTINUE WITH LOW FIBER DIET. CALL DR HSU WITH ANY INCREASED PAIN, BLOODY STOOLS, VOMITING, FEVER, CHILLS, ANY PROBLEMS OR CONCERNS. TAKE MEDICATION DIRECTED. Discharge Disposition: HOME SELF-CARE
== END 2017-12-09 14:15 | disposition home or self-care (01) | DRG 392 ==
LOC: EC 11:40 → 4MS4W 16:25 → 6PED 12-05 18:28
PROVIDERS: ADMIT Internal Medicine; ATTEND Internal Medicine
DX: K57.20 Diverticulitis of large intestine with perforation and abscess without bleeding (principal); J44.9 Chronic obstructive pulmonary disease, unspecified; E66.01 Morbid (severe) obesity due to excess calories; E83.42 Hypomagnesemia; E11.9 Type 2 diabetes mellitus without complications; I10 Essential (primary) hypertension; M79.7 Fibromyalgia; K21.9 Gastro-esophageal reflux disease without esophagitis; E78.5 Hyperlipidemia, unspecified; M06.9 Rheumatoid arthritis, unspecified; R25.1 Tremor, unspecified; R53.1 Weakness; K59.03 Drug induced constipation; T40.605A Adverse effect of unspecified narcotics, initial encounter; E87.6 Hypokalemia; F32.9 Major depressive disorder, single episode, unspecified; Z88.6 Allergy status to analgesic agent; Z88.8 Allergy status to other drugs, medicaments and biological substances; Z79.899 Other long term (current) drug therapy; Z79.84 Long term (current) use of oral hypoglycemic drugs; Z82.3 Family history of stroke; Z80.9 Family history of malignant neoplasm, unspecified; Z90.49 Acquired absence of other specified parts of digestive tract; Z90.710 Acquired absence of both cervix and uterus; Z96.653 Presence of artificial knee joint, bilateral; Z85.828 Personal history of other malignant neoplasm of skin; Z68.37 Body mass index [BMI] 37.0-37.9, adult
CPT/HCPCS: 36415; 74018; 74177; 80048; 80053; 81001; 82150; 83036; 83605; 83690; 83735; 84100; 85025; 85027; 87040; 87086; 87493; 94640; 96365; 96375; 99285

== ENCOUNTER → 2017-12-15 | Outpatient (CLI) | payer MEDICARE, BC ==
--- NOTE | 2017-12-15 19:07 | CT ---
EXAMINATION TYPE: CT pelvis w con DATE OF EXAM: 12/15/2017 COMPARISON: 12/03/2017 HISTORY: Pelvic pain follow up diverticulitis CT DLP: 1183.2 mGycm Automated exposure control for dose reduction was used. CONTRAST: Performed with IV Contrast, patient injected with 80 mL of Visipaque 320. FINDINGS: Bladder distends smoothly. There are numerous diverticula in the sigmoid colon. There is some fat str anding around the rectosigmoid colon. There is a 2 cm fluid collection on the right side of the lower sigmoid colon. There is no sign of free air. I see no pelvic lymphadenopathy. IMPRESSION: THERE IS EVIDENCE OF FOCAL DIVERTICULITIS IN THE LOWER SIGMOID COLON WITH A 2 CM ABSCESS ON THE RIGHT LATERAL WALL. THIS IS SIGNIFICANTLY SMALLER THAN THE LAST CT SCAN WHICH IT MEASURES 6 CM. NO EVIDENCE OF RENAL OBSTRUCTION. RIGHT RENAL CORTICAL CYSTS ARE NOTED.
== END | disposition home or self-care (01) ==
LOC: RADCTMAIN 17:33
PROVIDERS: ATTEND Surgery
DX: K57.32 Diverticulitis of large intestine without perforation or abscess without bleeding (principal); K63.0 Abscess of intestine; N28.1 Cyst of kidney, acquired
CPT/HCPCS: 82565; 84520; 72193; 36415; Q9967

== ENCOUNTER → 2018-01-08 | Outpatient (CLI) | payer MEDICARE, BC ==
[2018-01-08 08:36] LABS: Blood Urea Nitrogen 28 mg/dL (7-17)
--- NOTE | 2018-01-08 12:29 | CT ---
EXAMINATION TYPE: CT pelvis w con DATE OF EXAM: 01/08/2018 COMPARISON: NONE INDICATION: Diverticular abscess DLP: 2026.70 mGycm, Automated exposure control for dose reduction was used. CONTRAST: 100 ml mL of Omnipaque 300. Study performed with Oral Contrast TECHNIQUE: Axial images were obtained from above the diaphragm to the pubic rami in the axial plane a t 5 mm thick sections. Reconstructed images are reviewed on the computer in the coronal plane. FINDINGS: Limited CT ABDOMEN: Portions visualized are normal. Inferior portion of the liver and spleen included within the [id number] are unremarkable. Gallbladder: Normal Kidneys: No masses are evident. No hydronephrosis is present. Tiny 0.5 cm cortical renal cyst on th e posterior mid right kidney. This is too small to classify as simple. There is a 2.0 cm posterior m id right renal cyst measuring 19 Hounsfield units. There is an inferior pole right renal cyst anterio r margin measuring 2.0 cm and 25 Hounsfield units. There is a 1.7 cm cyst at the inferior pole right kidney measuring 4 Hounsfield units. Delayed images were obtained through the kidneys, which remain unremarkable. Aorta: Vascular calcification is within the aorta. Inferior vena cava: Normal. CT PELVIS: Small periumbilical hernia is present. No loops of bowel are involved. Mesenteric fat is w ithin this structure. Sigmoid diverticuli are present. No acute inflammatory changes suggest acute diverticulitis is eviden t. Abscess formation is not identified. This exam is compared 12/15/2017. Large air collection has dim inished over the interval. Previous fluid collection to the right of the distal colon in the presacra l space has diminished 0.4 cm. There is almost complete resolution of the previous abscess. There ar e loops of bowel which are incompletely distended or lack oral contrast limiting their evaluation. Appendix: Not identified. No inflammatory changes are in the right lower quadrant. Urinary bladder: Normal. Genitourinary structures: Uterus and ovaries are absent. Osseous structures: No suspicious lytic or sclerotic lesions. Facet hypertrophy is present. IMPRESSIONS: 1. Near complete resolution of previous suspected pericolonic abscess right lower quadrant. 2. Sigmoid diverticulosis.
== END ==
LOC: RADCTMAIN 07:56
PROVIDERS: ATTEND Surgery
DX: K57.30 Diverticulosis of large intestine without perforation or abscess without bleeding (principal)
CPT/HCPCS: 82565; 84520; 72193; 36415; Q9967

== ENCOUNTER 2018-03-11 09:42 | Day surgery (SDC) | payer MEDICARE, BC ==
[2018-03-06 11:44] VITALS: BMI 37.3
[~2018-03-11 09:42] MED LIST: LACTATED RINGERS 1,000 ML IV SCH
[2018-03-11 10:03] VITALS: TEMP 97.8
[2018-03-11] MEDS ORDERED: LIDOCAINE 1% 20 ML VIAL (10MG/ML) FOR IV START INTRADERMA ONE (10:12)
[2018-03-11] MEDS ORDERED: LIDOCAINE 1% INJ 10MG/ML (20 ML MDV) ONE (10:14)
[2018-03-11] MEDS ORDERED: PROPOFOL 10 MG/ML 20 ML VIAL IV ONE (10:14)
--- NOTE | 2018-03-11 10:57 | P.PCN ---
Date of Procedure: 03/11/18 Procedure(s) Performed: PREOPERATIVE DIAGNOSIS: Change in bowel habits, possible colovaginal fistula POSTOPERATIVE DIAGNOSIS: Diverticulosis, tortuosity throughout sigmoid colon PROCEDURE: Attempted Colonoscopy ANESTHESIA: MAC SURGEON: Yves Wheat M.D. SPECIMENS: None ENDOSCOPIC PROCEDURE: The patient was placed on the endoscopy table in the left decubitus position. The Olympus colonoscope was inserted into the anus and passed under direct visualization to the mid to proximal sigmoid colon. Navigation throughout the tortuous sigmoid was challenging. There was some mild chronic inflammatory changes with numerous diverticular orifices. There was no fistula or neoplastic changes identified however. I was unable to advance beyond the mid to proximal sigmoid colon despite single lumen. The scope was withdrawn. No additional abnormalities were identified. Digital rectal examination was normal. The patient was taken to the recovery room in stable condition per anesthesia guidelines. RECOMMENDATIONS: Options of barium enema will be discussed with the patient although given the tortuosity throughout the sigmoid colon and the fact that she has in all likelihood a large volume of air in the colon after my attempts I would be comfortable postponing further proximal colonic evaluation at this time. Patient has an appointment to see gynecology tomorrow regarding her vaginal discharge and passage of air. She does state her symptoms from a vaginal standpoint have improved. In all likelihood the patient I will schedule elective sigmoid resection and plan short-term follow-up colonoscopy after she has fully recovered.
[2018-03-11 11:09] VITALS: BP 118/64; PULSE 71; RESP 18
[2018-03-11] MEDS ORDERED: HYDROcodone/APAP 5-325MG 1 EACH TAB PO ONE (11:40)
== END 2018-03-11 11:47 | disposition home or self-care (01) ==
LOC: ORWHC2ENDO 09:42
PROVIDERS: ATTEND Surgery
DX: K57.30 Diverticulosis of large intestine without perforation or abscess without bleeding (principal); Q43.8 Other specified congenital malformations of intestine; J44.9 Chronic obstructive pulmonary disease, unspecified; E11.9 Type 2 diabetes mellitus without complications; M79.7 Fibromyalgia; K21.9 Gastro-esophageal reflux disease without esophagitis; E78.5 Hyperlipidemia, unspecified; I10 Essential (primary) hypertension; M06.9 Rheumatoid arthritis, unspecified; G47.33 Obstructive sleep apnea (adult) (pediatric); Z99.89 Dependence on other enabling machines and devices; F32.9 Major depressive disorder, single episode, unspecified; E66.9 Obesity, unspecified; Z68.36 Body mass index [BMI] 36.0-36.9, adult; Z85.9 Personal history of malignant neoplasm, unspecified; Z79.51 Long term (current) use of inhaled steroids; Z79.899 Other long term (current) drug therapy; Z88.5 Allergy status to narcotic agent
CPT/HCPCS: 45330; J2001; J2704; 45378

== ENCOUNTER → 2018-04-23 | Outpatient (CLI) | payer MEDICARE, BC ==
[2018-04-23 11:06] LABS: HCT 38.8 % (34.0-46.0); HGB 12.7 gm/dL (11.4-16.0); MCH 27.6 pg (25.0-35.0); MCHC 32.7 g/dL (31.0-37.0); MCV 84.2 fL (80.0-100.0); Mean Platelet Volume 8.3; Platelet Count 179 k/uL (150-450); RDW 13.9 % (11.5-15.5); WBC 6.1 k/uL (3.8-10.6)
[2018-04-23 11:31] LABS: Potassium 4.4 mmol/L (3.5-5.1)
== END | disposition home or self-care (01) ==
LOC: LABWHC1 10:13
PROVIDERS: ATTEND Surgery
DX: Z01.812 Encounter for preprocedural laboratory examination (principal); K57.80 Diverticulitis of intestine, part unspecified, with perforation and abscess without bleeding; Z01.810 Encounter for preprocedural cardiovascular examination
CPT/HCPCS: 36415; 80051; 85027; 93005

== ENCOUNTER 2018-04-24 07:45 | Inpatient (IN) | payer MEDICARE, BC ==
[2018-04-17 11:52] VITALS: BMI 38.0
[~2018-04-24 07:45] MED LIST changes: +ALVIMOPAN 12 MG CAPSULE PO ONE; +DEXAMETHASONE SOD PHOSPHATE 10 MG/ML 1 ML VIAL IV ONE; +HEPARIN SODIUM,PORCINE 5,000 UNIT/ML 1 ML VIAL SQ ONE; -LACTATED RINGERS 1,000 ML IV SCH; +MIDAZOLAM 2 MG/2 ML VIAL IV PRN; +ONDANSETRON 4 MG/2 ML VIAL IVP ONE; +SCOPOLAMINE 1.5MG/72HR PATCH TRANSDERM ONE; +ceFAZolin IN SWFI 2 GM/20 ML SYRINGE IVP ONE; +fentaNYL (PF) 50 MCG/ML 2 ML AMP IV PRN; +metroNIDAZOLE-NS PMX 500 MG in SALINE 1 100ML.BAG IVPB ONE
[2018-04-24] MEDS: LACTATED RINGERS 1,000 ML IV SCH ×3 (09:07→22:06)
[2018-04-24] MEDS ORDERED: LIDOCAINE 1% 20 ML VIAL (10MG/ML) FOR IV START INTRADERMA ONE (09:08)
[2018-04-24 09:14] LABS: Glucose,Whole Blood 139 mg/dL (75-99)
[2018-04-24] MEDS ORDERED: MIDAZOLAM 2 MG/2 ML VIAL IVP ONE (09:17)
[2018-04-24] MEDS ORDERED: fentaNYL (PF) 50 MCG/ML 2 ML AMP IVP ONE (09:23)
[2018-04-24] MEDS ORDERED: NALOXONE 0.4 MG/ML 1 ML VIAL IV PRN (09:56)
[2018-04-24] MEDS ORDERED: ROPIVACAINE 400 MG, HYDROMORPHONE (PF) 5 MG in SODIUM CHLORIDE 0.9% 170 ML EPIDURAL PRN (09:56)
--- NOTE | 2018-04-24 10:04 | P.GSHP ---
History of Present Illness H&P Date: 04/24/18 Chief Complaint: Colovaginal fistula Patient well known to our service. She has had problems with diverticular abscess over the last several months. She then developed spontaneous vaginal drainage that was foul-smelling and brownish in color. She also appreciated some air emanating from the vagina. She had a gynecologic workup which was normal. She has a history of previous hysterectomy BSO. Patient has a suspected colovaginal fistula related to the diverticular abscess. Mild abdominal discomfort at times. Some constipation at times. Last colonoscopy revealed diverticulosis without obvious fistula. We were unable to navigate past the sigmoid colon. Patient has not had a barium enema to evaluate the proximal colon. Past Medical History Past Medical History: Asthma, Cancer, COPD, Diabetes Mellitus, Fibromyalgia, GERD/Reflux, Hyperlipidemia, Hypertension, Osteoarthritis (OA), Pulmonary Embolus (PE), Sleep Apnea/CPAP/BIPAP Additional Past Medical History / Comment(s): Diverticulitis; HAS ABSCESS. HX Skin CA. HX Tremor RT ARM R/T STRESS OCC. USES CPAP. "CYSTS ON LIVER & KIDNEYS." VARICOSE VEINS; EDEMA BLE. History of Any Multi-Drug Resistant Organisms: None Reported Past Surgical History: Appendectomy, Back Surgery, Hysterectomy, Orthopedic Surgery Additional Past Surgical History / Comment(s): left and right knee replacement, bilat carpal tunnel, skin ca removal, bilat rotator cuff repair. ATTEMPTED COLONOSCOPY 03/11/18. Past Anesthesia/Blood Transfusion Reactions: Family History of Problems w/ Anesthesia, Postoperative Nausea & Vomiting (PONV) Additional Past Anesthesia/Blood Transfusion Reaction / Comment(s): SISTER HAS PONV. Smoking Status: Never smoker - Past Family History Father Family Medical History: Cancer Mother Family Medical History: CVA/TIA Sister(s) Family Medical History: Cancer Medications and Allergies Home Medications Medication Instructions Recorded Confirmed Type Albuterol Sulfate [Proair Hfa] 1 - 2 puff INHALATION RT-Q6H PRN 12/02/17 History DULoxetine HCL [Cymbalta] 60 mg PO HS 12/02/17 04/24/18 History Fluticasone Nasal [place] [Flonase 1 spray EA NOSTRIL DAILY 12/02/17 04/24/18 History Nasal [place]] Gabapentin [Neurontin] 800 mg PO TID 12/02/17 04/24/18 History Losartan Potassium [Cozaar] 100 mg PO HS 12/02/17 04/24/18 History Montelukast [Singulair] 10 mg PO HS 12/02/17 04/24/18 History Omeprazole [PriLOSEC] 40 mg PO DAILY 12/02/17 04/24/18 History Pioglitazone [Actos] 30 mg PO DAILY 12/02/17 04/24/18 History Pyridoxine HCl (Vitamin B6) 100 mg PO DAILY 12/02/17 04/24/18 History [Vitamin B-6] Simvastatin [Zocor] 20 mg PO HS 12/02/17 04/24/18 History Triamterene/Hydrochlorothiazid 1 tab PO DAILY 12/02/17 04/24/18 History [Triamterene-Hctz 37.5-25 mg Tb] Vitamin E (Dl,Tocopheryl Acet) 400 unit PO DAILY 12/02/17 04/17/18 History [Vitamin E] Acetaminophen [Tylenol Extra 1,000 mg PO Q6H PRN 03/06/18 04/24/18 History Strength] Calcium Carbonate/Vitamin D3 1 each PO BID 03/06/18 04/24/18 History [Calcium 600-Vit D3 400 Caplet] Diphenoxylate HCl/Atropine 1 each PO Q48H PRN 03/06/18 04/24/18 History [Lomotil 2.5-0.025 mg Tablet] Metoprolol Succinate [Toprol Xl] 50 mg PO DAILY 03/06/18 04/17/18 History Umeclidinium Brm/Vilanterol Tr 1 puff INHALATION DAILY 03/06/18 04/17/18 History [Anoro Ellipta 62.5-25 Mcg INH] Allergies Allergy/AdvReac Type Severity Reaction Status Date / Time codeine Allergy Itching, Verified 04/17/18 11:08 NAUSEA meperidine [From Demerol] Allergy Nausea & Verified 04/17/18 11:08 Vomiting wool Allergy Itching, Verified 04/17/18 11:08 RASH Surgical - Exam Vital Signs Temp Pulse Resp BP Pulse Ox 98.2 F 80 16 134/64 98 04/24/18 08:57 04/24/18 08:57 04/24/18 08:57 04/24/18 08:57 04/24/18 08:57 Physical exam: General: Well-developed, well-nourished HEENT: Normocephalic, sclerae nonicteric Abdomen: Nontender, nondistended Extremities: No edema Neuro: Alert and oriented Results - Labs Abnormal Lab Results - Last 24 Hours (Table) 04/24/18 Range/Units 09:01 POC Glucose (mg/dL) 139 H (75-99) mg/dL Assessment and Plan (1) Colovaginal fistula Narrative/Plan: Options discussed in detail with the patient on multiple occasions. We'll proceed with sigmoid colectomy at this time. Risks of bleeding, infection, ostomy, abscess, persistent fistula, ureteral injury, hernia, anesthesia related complications were reviewed. She understands and wishes to proceed. Current Visit: Yes Status: Acute Code(s): N82.4 - OTHER FEMALE INTESTINAL- GENITAL TRACT FISTULAE SNOMED Code(s): 931960465
[2018-04-24] MEDS ORDERED: PHENYLEPHRINE-0.9% NACL SYG 1 MG/10 ML SYRINGE ONE (10:34)
[2018-04-24] MEDS ORDERED: ePHEDrine SULFATE/0.9% NACL/PF 50 MG/5 ML SYRINGE IV ONE (10:34)
[2018-04-24] MEDS ORDERED: LIDOCAINE 1% INJ 10MG/ML (20 ML MDV) ONE (10:34)
[2018-04-24] MEDS ORDERED: PROPOFOL 10 MG/ML 20 ML VIAL IV ONE (10:34)
[2018-04-24] MEDS ORDERED: fentaNYL (PF) 50 MCG/ML 2 ML AMP ONE (10:34)
[2018-04-24] MEDS ORDERED: ROCURONIUM BROMIDE 10 MG/ML 10 ML VIAL IV ONE (10:34)
[2018-04-24] MEDS ORDERED: MIDAZOLAM 2 MG/2 ML VIAL ONE (10:34)
[2018-04-24] MEDS ORDERED: NEOSTIGMINE 1 MG/ML 10 ML VIAL ONE (10:34)
[2018-04-24] MEDS ORDERED: SUCCINYLCHOLINE CHLORIDE 100 MG/5 ML SYR IV ONE (10:34)
[2018-04-24] MEDS ORDERED: GLYCOPYRROLATE 0.2 MG/ML 2 ML VIAL ONE (10:34)
[2018-04-24] MEDS ORDERED: ONDANSETRON 4 MG/2 ML VIAL IVP PRN (14:33)
[2018-04-24] MEDS: diphenhydrAMINE 50 MG/ML 1 ML VIAL IVP PRN (14:38)
--- NOTE | 2018-04-24 14:48 | P.OP ---
Date of Procedure: 04/24/18 Procedure(s) Performed: PREOPERATIVE DIAGNOSIS: Colovaginal fistula POSTOPERATIVE DIAGNOSIS: Same PROCEDURE: Low anterior resection with diverting loop ileostomy SURGEON: Mary Alice EBL: 50 mL ANESTHESIA: General COMPLICATIONS: None OPERATIVE PROCEDURE: Patient place in the operative table in the supine position. The patient was placed under general anesthesia. The patient was then placed in lithotomy. The abdomen was prepped and draped in usual sterile fashion. A vertical incision was made encompassing the umbilical hernia that was present. The fascia was divided as well. The Bookwalter retractor was utilized. The sigmoid colon was fully mobilized by incising the white line of [place]. The course of the left and right ureters were both identified and preserved. There were dense adhesions in the most distal aspect of the sigmoid colon near the rectum between the suspected vaginal cuff and the bowel. An actual fistulous opening was not visualized. The adhesions were able to be taken down using both electrocautery blunt dissection and the Enseal device. The sigmoid colon was divided proximally using a linear 75 stapler. The mesentery was divided using the Enseal device. Dissection took place down to the proximal rectum beyond the site of induration where the suspected fistula was present. The patient's pelvis was fairly deep at this point. The proximal rectum was divided using the contour stapler. The specimen was passed off the field at that point. The proximal staple line was dissected of any surrounding fat. The pursestring adapter was utilized. The staple line itself was then removed. Sizers were utilized. The 29 EEA was chosen. The anvil was advanced into the lumen of the bowel and the pursestring was tied down. The stapler was then inserted into the anus and brought up to the staple line. The obturator was brought out just anterior to the staple line. The 2 portions of the stapler were connected to one another and subsequently tightened and fired. The bowel was clamped proximal to the anastomosis. The rigid sigmoidoscope was utilized to fill the anastomotic site nicely with air. There was saline in the pelvis at this time. Initially there was no evidence of any air bubbles. As further insufflation took place however we noted 2 separate areas both left anterolateral and right posterior lateral were air bubbles were seen. The exact site of leak was not able to be visualized. Sutures were placed roughly those locations using 3-0 silk. Following that no further leakage of air was visualized however I will remained concerned given the lack of ability to fully visualize the staple line. At that point I decided to proceed with diverting loop ileostomy given the questionable integrity of the EEA anastomosis. I did not feel that going more distal on the rectum was feasible given the limited visibility. The abdominal cavity was irrigated with saline. A small circular incision was made in the right midabdomen at about the level of the umbilicus given the paucity of fat in that location and the significant thickness of fat in the right lower quadrant. Dissection through the saphenous fat and fascia to place using electrocautery. The bowel was brought up through the opening to the skin level. No evidence of leak was seen. The midline fascia was then reapproximated using a double-stranded #1 PDS suture x 2. A drain was placed just anterior to the fascial closure and exited in the left lower quadrant. This was sutured to the skin using a 3-0 silk stitch. It should be noted that the umbilical hernia defect was incorporated into the fascial closure. The subcutaneous tissues were closed using 2-0 Vicryl sutures. The skin was then closed using xuan. Sterile dressings were then applied. The ileostomy was then matured in a [place] fashion keeping the distal aspect of the loop ileostomy flush in the proximal superior aspect of the ileostomy protruding. An ostomy appliance was applied. DISPOSITION: Stable to recovery room
[2018-04-24] MEDS: NALBUPHINE 10 MG/ML AMPUL IV PRN ×2 (16:56→21:29)
[2018-04-24] MEDS: HEPARIN SODIUM,PORCINE 5,000 UNIT/ML 1 ML VIAL SQ SCH (17:05)
[2018-04-24] MEDS: D5-0.45% NACL WITH KCL 20MEQ/L 1,000 ML IV SCH (17:06)
[2018-04-24 17:12] LABS: Glucose,Whole Blood 147 mg/dL (75-99)
[2018-04-24 21:20] LABS: Glucose,Whole Blood 239 mg/dL (75-99)
[2018-04-24] MEDS: INSULIN ASPART 100 UNIT/ML 1 ML 10 ML VIAL SQ SCH (21:29)
[2018-04-24] MEDS: FAMOTIDINE 20 MG/2 ML VIAL IV SCH (22:05)
[2018-04-24] MEDS: ALVIMOPAN 12 MG CAPSULE PO SCH (22:06)
[2018-04-25] MEDS: D5-0.45% NACL WITH KCL 20MEQ/L 1,000 ML IV SCH ×4 (00:51→23:16)
[2018-04-25] MEDS: HEPARIN SODIUM,PORCINE 5,000 UNIT/ML 1 ML VIAL SQ SCH ×4 (00:51→23:15)
[2018-04-25] MEDS: NALBUPHINE 10 MG/ML AMPUL IV PRN ×4 (01:35→16:13)
[2018-04-25] MEDS: LACTATED RINGERS 1,000 ML IV SCH (05:26)
[2018-04-25 06:55] LABS: Glucose,Whole Blood 126 mg/dL (75-99)
[2018-04-25 07:22] LABS: Basophils % (A) 0 %; Eosinophils % (A) 0 %; HCT 33.2 % (34.0-46.0); Lymphocytes # (A) 0.7 k/uL (1.0-4.8); Lymphocytes % (A) 5 %; MCH 28.8 pg (25.0-35.0); MCHC 33.2 g/dL (31.0-37.0); MCV 86.6 fL (80.0-100.0); Mean Platelet Volume 8.3; Monocytes # (A) 0.8 k/uL (0-1.0); Monocytes % (A) 5 %; Neutrophils # (A) 13.4 k/uL (1.3-7.7); Neutrophils % (A) 89 %; Platelet Count 161 k/uL (150-450); RBC 3.83 m/uL (3.80-5.40); RDW 14.1 % (11.5-15.5)
[2018-04-25 07:50] LABS: Calcium 8.5 mg/dL (8.4-10.2); Potassium 4.2 mmol/L (3.5-5.1)
[2018-04-25] MEDS: INSULIN ASPART 100 UNIT/ML 1 ML 10 ML VIAL SQ SCH ×4 (08:42→20:58)
[2018-04-25] MEDS: FAMOTIDINE 20 MG/2 ML VIAL IV SCH ×2 (08:57→20:37)
[2018-04-25] MEDS: ALVIMOPAN 12 MG CAPSULE PO SCH ×2 (08:57→20:37)
--- NOTE | 2018-04-25 09:09 | P.PN ---
Progress Note - Text Anesthesia POD 1. Status Post low anterior resection with diverting ileostomy under general endotracheal anesthesia with an epidrual catheter placed at T10 for post surgical pain releif. VAS (0, 1) with Ropivicaine [0.16] % and Dilaudid 20 mcg / cc running at 6 cc / hr. Lower extremity strength (4/4). No sedation. Site looks OK.
[2018-04-25] MEDS ORDERED: NALOXONE 0.4 MG/ML 1 ML VIAL IV PRN (09:13)
[2018-04-25] MEDS ORDERED: ROPIVACAINE EPIDURAL PRN (09:13)
[2018-04-25] MEDS ORDERED: SODIUM CHLORIDE 0.9% EPIDURAL PRN (09:13)
[2018-04-25] MEDS ORDERED: HYDROMORPHONE EPIDURAL PRN (09:13)
--- NOTE | 2018-04-25 09:56 | P.PN ---
Subjective Progress Note Date: 04/25/18 Principal diagnosis: Low anterior section with protective ileostomy for diverticulitis The patient states she feels well. She has some complaints of hunger. She denies any significant nausea or pain. Objective - Vital Signs Vital signs: Vital Signs Temp 98.6 F 04/25/18 00:00 Pulse 86 04/25/18 00:00 Resp 18 04/25/18 00:00 BP 105/63 04/25/18 00:00 Pulse Ox 95 04/25/18 00:00 Intake & Output 04/24/18 04/25/18 04/25/18 18:59 06:59 18:59 Intake Total 2775 1598 Output Total 220 1075 Balance 2555 523 Weight 98.883 kg Intake: IV 2050 Intake, IV Titration 1398 Amount D5-0.45% NaCl with KCl 1398 20Meq/l 1,000 ml @ 125 mls/hr IV .Q8H [facility] Rx#: [id number] Oral 725 200 Output: Drainage 45 Abdomen 45 Urine 145 990 Stool 40 Estimated Blood Loss 75 Other: Voiding Method Indwelling Catheter Indwelling Catheter # Voids 1 # Bowel Movements 1 # Emeses 0 - Gastrointestinal Gastrointestinal Comment(s): Abdomen soft. Incision site is clean dry tach. Ileostomy is pink. - Labs CBC & Chem 7: 04/25/18 06:21 04/25/18 06:21 Labs: Abnormal Lab Results - Last 24 Hours (Table) 04/24/18 04/24/18 04/25/18 Range/Units 17:10 21:18 06:21 WBC 15.0 H (3.8-10.6) k/uL Hgb 11.0 L (11.4-16.0) gm/dL Hct 33.2 L (34.0-46.0) % Neutrophils # 13.4 H (1.3-7.7) k/uL Lymphocytes # 0.7 L (1.0-4.8) k/uL Sodium (137-145) mmol/L BUN (7-17) mg/dL Creatinine (0.52-1.04) mg/dL Glucose (74-99) mg/dL POC Glucose (mg/dL) 147 H 239 H (75-99) mg/dL 04/25/18 04/25/18 Range/Units 06:21 06:52 WBC (3.8-10.6) k/uL Hgb (11.4-16.0) gm/dL Hct (34.0-46.0) % Neutrophils # (1.3-7.7) k/uL Lymphocytes # (1.0-4.8) k/uL Sodium 136 L (137-145) mmol/L BUN 29 H (7-17) mg/dL Creatinine 1.43 H (0.52-1.04) mg/dL Glucose 125 H (74-99) mg/dL POC Glucose (mg/dL) 126 H (75-99) mg/dL Assessment and Plan Assessment: Status post low anterior resection for history of perforated diverticulitis. Patient is doing well. She'll remain nothing by mouth for now.
[2018-04-25 12:17] LABS: Glucose,Whole Blood 124 mg/dL (75-99)
[2018-04-25 13:44] LABS: Hemoglobin A1C 5.9 % (4.0-6.0)
[2018-04-25] MEDS: diphenhydrAMINE 50 MG/ML 1 ML VIAL IVP PRN ×2 (13:56→20:37)
--- NOTE | 2018-04-25 14:28 | P.CONS ---
History of Present Illness - Reason for Consult Consult date: 04/25/18 Medical management - Chief Complaint Abdominal pain - History of Present Illness This is a 67-year-old female with past medical history noted below for underlying below presented fistula was admitted to the hospital and underwent elective low anterior resection with diverting loop ileostomy. Patient is postoperative day #1. She is doing fairly well. Her pain is well-controlled. She does not have any specific concerns or complaints. I was asked to see her for medical management. Review of Systems Review of system: 14 points review of systems were obtained and were negative except to what were mentioned in the HPI. Past Medical History Past Medical History: Asthma, Cancer, COPD, Diabetes Mellitus, Fibromyalgia, GERD/Reflux, Hyperlipidemia, Hypertension, Osteoarthritis (OA), Pulmonary Embolus (PE), Sleep Apnea/CPAP/BIPAP Additional Past Medical History / Comment(s): Diverticulitis; HAS ABSCESS. HX Skin CA. HX Tremor RT ARM R/T STRESS OCC. USES CPAP. "CYSTS ON LIVER & KIDNEYS." VARICOSE VEINS; EDEMA BLE. History of Any Multi-Drug Resistant Organisms: None Reported Past Surgical History: Appendectomy, Back Surgery, Bowel Resection, Hysterectomy , Orthopedic Surgery Additional Past Surgical History / Comment(s): left and right knee replacement, bilat carpal tunnel, skin ca removal, bilat rotator cuff repair. ATTEMPTED COLONOSCOPY 03/11/18. Colostomy 04/04/2018 Past Anesthesia/Blood Transfusion Reactions: Family History of Problems w/ Anesthesia, Postoperative Nausea & Vomiting (PONV) Additional Past Anesthesia/Blood Transfusion Reaction / Comm: SISTER HAS PONV. Past Psychological History: Anxiety, Depression Smoking Status: Never smoker Past Alcohol Use History: Occasional Past Drug Use History: None Reported - Past Family History Father Family Medical History: Cancer Mother Family Medical History: CVA/TIA Sister(s) Family Medical History: Cancer Medications and Allergies Home Medications Medication Instructions Recorded Confirmed Type Albuterol Sulfate [Proair Hfa] 1 - 2 puff INHALATION RT-Q6H PRN 12/02/17 History DULoxetine HCL [Cymbalta] 60 mg PO HS 12/02/17 04/24/18 History Fluticasone Nasal [place] [Flonase 1 spray EA NOSTRIL DAILY 12/02/17 04/24/18 History Nasal [place]] Gabapentin [Neurontin] 800 mg PO TID 12/02/17 04/24/18 History Losartan Potassium [Cozaar] 100 mg PO HS 12/02/17 04/24/18 History Montelukast [Singulair] 10 mg PO HS 12/02/17 04/24/18 History Omeprazole [PriLOSEC] 40 mg PO DAILY 12/02/17 04/24/18 History Pioglitazone [Actos] 30 mg PO DAILY 12/02/17 04/24/18 History Pyridoxine HCl (Vitamin B6) 100 mg PO DAILY 12/02/17 04/24/18 History [Vitamin B-6] Simvastatin [Zocor] 20 mg PO HS 12/02/17 04/24/18 History Triamterene/Hydrochlorothiazid 1 tab PO DAILY 12/02/17 04/24/18 History [Triamterene-Hctz 37.5-25 mg Tb] Vitamin E (Dl,Tocopheryl Acet) 400 unit PO DAILY 12/02/17 04/24/18 History [Vitamin E] Acetaminophen [Tylenol Extra 1,000 mg PO Q6H PRN 03/06/18 04/24/18 History Strength] Calcium Carbonate/Vitamin D3 1 tab PO BID 03/06/18 04/24/18 History [Calcium 600-Vit D3 400 Caplet] Diphenoxylate HCl/Atropine 1 tab PO Q48H PRN 03/06/18 04/24/18 History [Lomotil 2.5-0.025 mg Tablet] Metoprolol Succinate [Toprol Xl] 50 mg PO DAILY 03/06/18 04/24/18 History Umeclidinium Brm/Vilanterol Tr 1 puff INHALATION RT-DAILY 03/06/18 04/24/18 History [Anoro Ellipta 62.5-25 Mcg INH] Allergies Allergy/AdvReac Type Severity Reaction Status Date / Time codeine Allergy Itching, Verified 04/17/18 11:08 NAUSEA meperidine [From Demerol] Allergy Nausea & Verified 04/17/18 11:08 Vomiting wool Allergy Itching, Verified 04/17/18 11:08 RASH Physical Exam Vitals: Vital Signs Temp Pulse Resp BP Pulse Ox 04/25/18 14:04 97.8 F 77 16 108/61 95 04/25/18 09:21 98.1 F 80 16 106/64 96 04/25/18 00:00 98.6 F 86 18 105/63 95 04/24/18 21:00 99.0 F 79 18 120/68 94 L 04/24/18 17:15 88 107/86 97 04/24/18 17:00 67 95/48 96 04/24/18 16:45 74 99/51 97 04/24/18 16:30 75 102/62 97 04/24/18 16:15 81 104/59 97 04/24/18 16:00 82 115/69 97 04/24/18 15:45 72 104/64 95 04/24/18 15:30 98.6 F 79 18 110/67 93 L 04/24/18 15:02 75 12 115/57 97 04/24/18 14:45 76 12 117/56 96 04/24/18 14:30 87 12 119/56 95 Intake and Output 04/24/18 04/25/18 04/25/18 22:59 06:59 14:59 Intake Total 1557 766 360 Output Total 360 715 Balance 1197 51 360 Intake: Intake, IV Titration 832 566 Amount D5-0.45% NaCl with KCl 832 566 20Meq/l 1,000 ml @ 125 mls/hr IV .Q8H [facility] Rx#: [id number] Oral 725 200 360 Output: Drainage 30 15 Abdomen 30 15 Urine 290 700 Stool 40 Other: Voiding Method Indwelling Catheter Indwelling Catheter # Voids 1 # Bowel Movements 1 # Emeses 0 Weight 98.883 kg General: The patient is awake and alert, in no distress Eye: there is normal conjunctiva bilaterally. Neck: The neck is supple, there is no JVD. Cardiovascular: Normal S1-S2, no S3-S4, no murmurs. Respiratory: Lungs clear to auscultation bilaterally Gastrointestinal: Abdomen is soft, nontender. Colostomy bag in place Musculoskeletal: There is no pedal edema. Neurological:. Speech is normal. Skin: Skin is warm and dry Results CBC & Chem 7: 04/25/18 06:21 04/25/18 06:21 Labs: Abnormal Lab Results - Last 24 Hours (Table) 04/24/18 04/24/18 04/25/18 Range/Units 17:10 21:18 06:21 WBC 15.0 H (3.8-10.6) k/uL Hgb 11.0 L (11.4-16.0) gm/dL Hct 33.2 L (34.0-46.0) % Neutrophils # 13.4 H (1.3-7.7) k/uL Lymphocytes # 0.7 L (1.0-4.8) k/uL Sodium (137-145) mmol/L BUN (7-17) mg/dL Creatinine (0.52-1.04) mg/dL Glucose (74-99) mg/dL POC Glucose (mg/dL) 147 H 239 H (75-99) mg/dL 04/25/18 04/25/18 04/25/18 Range/Units 06:21 06:52 12:15 WBC (3.8-10.6) k/uL Hgb (11.4-16.0) gm/dL Hct (34.0-46.0) % Neutrophils # (1.3-7.7) k/uL Lymphocytes # (1.0-4.8) k/uL Sodium 136 L (137-145) mmol/L BUN 29 H (7-17) mg/dL Creatinine 1.43 H (0.52-1.04) mg/dL Glucose 125 H (74-99) mg/dL POC Glucose (mg/dL) 126 H 124 H (75-99) mg/dL Assessment and Plan Assessment: 1. 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 Continue postoperative care. Gen. surgery following closely. 2. Essential hypertension: Blood pressure on the lower side. Metoprolol for now. Hold other blood pressure medication 3. Major depressive disorder 4. Underlying COPD with no evidence of exacerbation. Continue duo nebs as needed 5. Acute kidney injury, may be related to dehydration. Continue IV fluid hydration. Repeat lab work in the morning.
[2018-04-25] MEDS: GABAPENTIN 400 MG CAP PO SCH ×2 (16:12→21:10)
[2018-04-25] MEDS: FLUTICASONE 50MCG/SPRAY NASAL 16GM EA NOSTRIL SCH (16:12)
[2018-04-25 16:31] LABS: Glucose,Whole Blood 107 mg/dL (75-99)
[2018-04-25] MEDS: HYDROmorphone 0.5 MG/0.5 ML SYRINGE IVP PRN (18:21)
[2018-04-25 19:58] LABS: Glucose,Whole Blood 113 mg/dL (75-99)
[2018-04-25] MEDS: MONTELUKAST 10 MG TAB PO SCH (20:37)
[2018-04-25] MEDS: DULoxetine HCL 60 MG CAPSULE.DR PO SCH (20:37)
[2018-04-25] MEDS: IPRATROPIUM-ALBUTEROL 3 ML NEB INHALATION PRN (21:02)
[2018-04-25] MEDS: ATORVASTATIN 10 MG TAB PO SCH (21:10)
[2018-04-26] MEDS: NALBUPHINE 10 MG/ML AMPUL IV PRN (00:21)
[2018-04-26 06:46] LABS: Basophils % (A) 0 %; Eosinophils % (A) 1 %; HCT 33.4 % (34.0-46.0); Lymphocytes # (A) 0.8 k/uL (1.0-4.8); Lymphocytes % (A) 10 %; MCH 28.3 pg (25.0-35.0); MCHC 32.8 g/dL (31.0-37.0); MCV 86.2 fL (80.0-100.0); Mean Platelet Volume 8.7; Monocytes # (A) 0.7 k/uL (0-1.0); Monocytes % (A) 9 %; Neutrophils # (A) 6.1 k/uL (1.3-7.7); Neutrophils % (A) 78 %; Platelet Count 116 k/uL (150-450); RBC 3.88 m/uL (3.80-5.40); RDW 14.1 % (11.5-15.5); WBC 7.7 k/uL (3.8-10.6)
[2018-04-26 06:46] LABS: Glucose,Whole Blood 129 mg/dL (75-99)
[2018-04-26 06:58] LABS: Calcium 8.6 mg/dL (8.4-10.2); Potassium 4.1 mmol/L (3.5-5.1)
[2018-04-26] MEDS: INSULIN ASPART 100 UNIT/ML 1 ML 10 ML VIAL SQ SCH ×4 (07:58→20:38)
[2018-04-26] MEDS: IPRATROPIUM-ALBUTEROL 3 ML NEB INHALATION PRN ×4 (08:29→19:29)
[2018-04-26] MEDS: ALVIMOPAN 12 MG CAPSULE PO SCH ×2 (08:42→20:34)
[2018-04-26] MEDS: HEPARIN SODIUM,PORCINE 5,000 UNIT/ML 1 ML VIAL SQ SCH ×3 (08:42→22:57)
[2018-04-26] MEDS: FAMOTIDINE 20 MG/2 ML VIAL IV SCH ×2 (08:45→20:34)
[2018-04-26] MEDS: METOPROLOL SUCCINATE (ER) 50 MG TAB.ER.24H PO SCH (08:46)
[2018-04-26] MEDS: GABAPENTIN 400 MG CAP PO SCH ×3 (08:46→22:57)
[2018-04-26] MEDS: FLUTICASONE 50MCG/SPRAY NASAL 16GM EA NOSTRIL SCH (08:46)
[2018-04-26] MEDS: ACETAMINOPHEN TAB 325 MG TAB PO PRN ×2 (08:59→14:42)
[2018-04-26] MEDS: D5-0.45% NACL WITH KCL 20MEQ/L 1,000 ML IV SCH ×5 (09:00→21:44)
--- NOTE | 2018-04-26 09:06 | P.PN ---
Progress Note - Text Progress Note Date: 04/26/18 The patient's resting comfortably in her bed. She denies any significant abdominal pain. Her epidural was removed yesterday. She's been tolerating ice chips and clears. On exam her vital signs are stable. Her abdomen soft. Incision site is clean dry intact. Ileostomy has a small amount of dark fluid. Status post low anterior section with protective ileostomy. Patient will have her diet increased to a full liquid diet.
[2018-04-26 11:49] LABS: Glucose,Whole Blood 134 mg/dL (75-99)
--- NOTE | 2018-04-26 16:42 | P.PN ---
Subjective Progress Note Date: 04/26/18 Patient is doing well today. No events overnight. Objective - Vital Signs Vital signs: Vital Signs Temp 99 F 04/26/18 14:44 Pulse 90 04/26/18 15:58 Resp 24 04/26/18 07:48 BP 142/79 04/26/18 14:44 Pulse Ox 96 04/26/18 14:44 Intake & Output 04/25/18 04/26/18 04/26/18 18:59 06:59 18:59 Intake Total 360 1000 937.5 Output Total 1220 2300 1750 Balance -860 -1300 -812.5 Intake: Intake, IV Titration 1000 937.5 Amount D5-0.45% NaCl with KCl 1000 937.5 20Meq/l 1,000 ml @ 125 mls/hr IV .Q8H [facility] Rx#: [id number] Oral 360 Output: Drainage 20 Abdomen 20 Urine 1200 2300 1400 Uretheral ([place]) 700 Stool 350 Other: Voiding Method Indwelling Catheter Indwelling Catheter Indwelling Catheter - Exam General: The patient is awake and alert, in no distress Eye: there is normal conjunctiva bilaterally. Neck: The neck is supple, there is no JVD. Cardiovascular: Normal S1-S2, no S3-S4, no murmurs. Respiratory: Lungs clear to auscultation bilaterally Gastrointestinal: Abdomen is soft, nontender. Colostomy in place. Musculoskeletal: There is no pedal edema. Neurological:. Speech is normal. Skin: Skin is warm and dry - Labs CBC & Chem 7: 04/26/18 06:14 04/26/18 06:14 Labs: Abnormal Lab Results - Last 24 Hours (Table) 04/25/18 04/26/18 04/26/18 Range/Units 19:56 06:14 06:14 Hgb 11.0 L (11.4-16.0) gm/dL Hct 33.4 L (34.0-46.0) % Plt Count 116 L (150-450) k/uL Lymphocytes # 0.8 L (1.0-4.8) k/uL Glucose 115 H (74-99) mg/dL POC Glucose (mg/dL) 113 H (75-99) mg/dL 04/26/18 04/26/18 Range/Units 06:41 11:45 Hgb (11.4-16.0) gm/dL Hct (34.0-46.0) % Plt Count (150-450) k/uL Lymphocytes # (1.0-4.8) k/uL Glucose (74-99) mg/dL POC Glucose (mg/dL) 129 H 134 H (75-99) mg/dL Assessment and Plan Assessment: 1. 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 Continue postoperative care. Gen. surgery following closely. 2. Essential hypertension: Blood pressure well controlled. Losartan and Metoprolol for now. Hold other blood pressure medication 3. Major depressive disorder 4. Underlying COPD with no evidence of exacerbation. Continue duo nebs as needed 5. Acute kidney injury: Resolved with IV fluid hydration.
[2018-04-26 17:28] LABS: Glucose,Whole Blood 110 mg/dL (75-99)
[2018-04-26] MEDS: HYDROmorphone 0.5 MG/0.5 ML SYRINGE IVP PRN (18:34)
[2018-04-26 20:18] LABS: Glucose,Whole Blood 109 mg/dL (75-99)
[2018-04-26] MEDS: MONTELUKAST 10 MG TAB PO SCH (20:34)
[2018-04-26] MEDS: DULoxetine HCL 60 MG CAPSULE.DR PO SCH (20:34)
[2018-04-26] MEDS: LOSARTAN 50 MG TAB PO SCH (20:34)
[2018-04-26] MEDS: ATORVASTATIN 10 MG TAB PO SCH (20:34)
[2018-04-27] MEDS: HYDROmorphone 0.5 MG/0.5 ML SYRINGE IVP PRN ×3 (01:44→21:07)
[2018-04-27] MEDS: IPRATROPIUM-ALBUTEROL 3 ML NEB INHALATION PRN ×3 (06:52→18:51)
[2018-04-27 06:57] LABS: Basophils % (A) 0 %; Eosinophils # (A) 0.1 k/uL (0-0.7); Eosinophils % (A) 1 %; HGB 11.3 gm/dL (11.4-16.0); Lymphocytes % (A) 12 %; MCH 27.9 pg (25.0-35.0); MCHC 32.3 g/dL (31.0-37.0); MCV 86.4 fL (80.0-100.0); Mean Platelet Volume 7.9; Monocytes # (A) 0.6 k/uL (0-1.0); Monocytes % (A) 6 %; Neutrophils # (A) 6.9 k/uL (1.3-7.7); Neutrophils % (A) 79 %; Platelet Count 148 k/uL (150-450); RBC 4.05 m/uL (3.80-5.40); RDW 14.1 % (11.5-15.5); WBC 8.7 k/uL (3.8-10.6)
[2018-04-27 07:07] LABS: Glucose,Whole Blood 108 mg/dL (75-99)
[2018-04-27 07:10] LABS: Anion Gap 9 mmol/L; Blood Urea Nitrogen 11 mg/dL (7-17); Carbon Dioxide 27 mmol/L (22-30); Chloride 101 mmol/L (98-107); Glucose 105 mg/dL (74-99); Potassium 4.6 mmol/L (3.5-5.1); Sodium 137 mmol/L (137-145)
[2018-04-27] MEDS: D5-0.45% NACL WITH KCL 20MEQ/L 1,000 ML IV SCH ×2 (08:03→08:08)
[2018-04-27] MEDS: INSULIN ASPART 100 UNIT/ML 1 ML 10 ML VIAL SQ SCH ×4 (08:04→21:07)
[2018-04-27] MEDS: HEPARIN SODIUM,PORCINE 5,000 UNIT/ML 1 ML VIAL SQ SCH ×3 (08:13→23:10)
[2018-04-27] MEDS: FLUTICASONE 50MCG/SPRAY NASAL 16GM EA NOSTRIL SCH (08:13)
[2018-04-27] MEDS: FAMOTIDINE 20 MG/2 ML VIAL IV SCH ×2 (08:14→21:10)
[2018-04-27] MEDS: METOPROLOL SUCCINATE (ER) 50 MG TAB.ER.24H PO SCH (08:14)
[2018-04-27] MEDS: ALVIMOPAN 12 MG CAPSULE PO SCH ×2 (08:15→21:10)
[2018-04-27] MEDS: GABAPENTIN 400 MG CAP PO SCH ×3 (08:15→21:56)
[2018-04-27] MEDS: ACETAMINOPHEN TAB 325 MG TAB PO PRN ×2 (08:22→15:51)
[2018-04-27 11:37] LABS: Glucose,Whole Blood 114 mg/dL (75-99)
--- NOTE | 2018-04-27 14:14 | P.PN ---
Progress Note - Text Progress Note Date: 04/27/18 The patient remained stable she has no real complaints. She is doing quite well. On exam her vital signs are stable. Her abdomen is soft. Ileostomy has small amount of stool within it. Incision is clean dry tach. Status post low anterior section with protective ileostomy. Patient is doing well. She'll remain on her full liquids.
[2018-04-27 17:08] LABS: Glucose,Whole Blood 111 mg/dL (75-99)
[2018-04-27 20:31] LABS: Glucose,Whole Blood 134 mg/dL (75-99)
[2018-04-27] MEDS: MONTELUKAST 10 MG TAB PO SCH (21:10)
[2018-04-27] MEDS: DULoxetine HCL 60 MG CAPSULE.DR PO SCH (21:10)
[2018-04-27] MEDS: ATORVASTATIN 10 MG TAB PO SCH (21:10)
[2018-04-27] MEDS: LOSARTAN 50 MG TAB PO SCH (21:10)
[2018-04-27] MEDS: diphenhydrAMINE 50 MG/ML 1 ML VIAL IVP PRN (23:09)
[2018-04-28] MEDS: HYDROmorphone 0.5 MG/0.5 ML SYRINGE IVP PRN ×4 (04:28→22:34)
[2018-04-28] MEDS: D5-0.45% NACL WITH KCL 20MEQ/L 1,000 ML IV SCH ×3 (04:33→08:36)
[2018-04-28 06:47] LABS: Glucose,Whole Blood 111 mg/dL (75-99)
[2018-04-28 07:03] LABS: Basophils % (A) 0 %; Eosinophils # (A) 0.2 k/uL (0-0.7); Eosinophils % (A) 2 %; HGB 11.2 gm/dL (11.4-16.0); Lymphocytes % (A) 10 %; MCH 27.8 pg (25.0-35.0); MCHC 32.1 g/dL (31.0-37.0); MCV 86.4 fL (80.0-100.0); Mean Platelet Volume 7.9; Monocytes # (A) 0.6 k/uL (0-1.0); Monocytes % (A) 6 %; Neutrophils # (A) 8.3 k/uL (1.3-7.7); Neutrophils % (A) 81 %; Platelet Count 154 k/uL (150-450); RBC 4.05 m/uL (3.80-5.40); RDW 13.8 % (11.5-15.5); WBC 10.2 k/uL (3.8-10.6)
[2018-04-28 07:22] LABS: Anion Gap 12 mmol/L; Blood Urea Nitrogen 9 mg/dL (7-17); Carbon Dioxide 25 mmol/L (22-30); Chloride 99 mmol/L (98-107); Glucose 112 mg/dL (74-99); Potassium 4.1 mmol/L (3.5-5.1); Sodium 136 mmol/L (137-145)
[2018-04-28] MEDS: INSULIN ASPART 100 UNIT/ML 1 ML 10 ML VIAL SQ SCH ×4 (08:30→21:26)
[2018-04-28] MEDS: ALVIMOPAN 12 MG CAPSULE PO SCH ×2 (08:39→21:29)
[2018-04-28] MEDS: HEPARIN SODIUM,PORCINE 5,000 UNIT/ML 1 ML VIAL SQ SCH ×2 (08:39→16:44)
[2018-04-28] MEDS: FAMOTIDINE 20 MG/2 ML VIAL IV SCH ×2 (08:39→21:30)
[2018-04-28] MEDS: FLUTICASONE 50MCG/SPRAY NASAL 16GM EA NOSTRIL SCH (08:40)
[2018-04-28] MEDS: GABAPENTIN 400 MG CAP PO SCH ×3 (08:40→21:30)
[2018-04-28] MEDS: METOPROLOL SUCCINATE (ER) 50 MG TAB.ER.24H PO SCH (08:40)
--- NOTE | 2018-04-28 08:50 | P.PN ---
<Ana Francisco M - Last Filed: 04/28/18 09:39> Subjective Progress Note Date: 04/28/18 67-year-old female resting in bed reports pain medication effective for pain control states is not passing gas smoking small amount of liquid brown stool from the ostomy. Reports no nausea vomiting tolerating a full liquid diet labs reviewed patient states has been up yesterday to the bathroom and back denies dizziness lightheadedness chest pain or shortness of breath surgical dressing site dry Objective - Vital Signs Vital signs: Vital Signs Temp 98.3 F 04/28/18 06:47 Pulse 95 04/28/18 06:47 Resp 16 04/28/18 06:47 BP 131/78 04/28/18 06:47 Pulse Ox 95 04/28/18 06:47 Intake & Output 04/27/18 04/28/18 04/28/18 18:59 06:59 18:59 Intake Total 497 918 Output Total 640 340 Balance -143 578 Intake: Intake, IV Titration 800 Amount D5-0.45% NaCl with KCl 800 20Meq/l 1,000 ml @ 50 mls /hr IV .Q20H [facility] Rx#: [id number] Oral 497 118 Output: Drainage 40 340 Abdomen 40 140 Right Abdomen 200 Stool 600 Other: # Voids 2 - Exam Physical exam 67-year-old female resting in bed currently tolerating a full liquid diet reports no nausea vomiting reports pain medication effective for pain control Lungs adequate air movement bilaterally on room air Heart S1-S2 audible regular Abdomen few hypoactive bowel tones surgical tenderness appropriate surgical dressing dry ostomy small amount liquid stool noted CINDY drain in place left lower quadrant mildly distended an 80 no difficulty Extremities Venodyne's on to the bilateral lower extremities - Labs CBC & Chem 7: 04/28/18 06:13 04/28/18 06:13 Labs: Abnormal Lab Results - Last 24 Hours (Table) 04/27/18 04/27/18 04/27/18 Range/Units 11:23 16:53 20:20 Hgb (11.4-16.0) gm/dL Neutrophils # (1.3-7.7) k/uL Sodium (137-145) mmol/L Glucose (74-99) mg/dL POC Glucose (mg/dL) 114 H 111 H 134 H (75-99) mg/dL 04/28/18 04/28/18 04/28/18 Range/Units 06:13 06:13 06:45 Hgb 11.2 L (11.4-16.0) gm/dL Neutrophils # 8.3 H (1.3-7.7) k/uL Sodium 136 L (137-145) mmol/L Glucose 112 H (74-99) mg/dL POC Glucose (mg/dL) 111 H (75-99) mg/dL Assessment and Plan Assessment: Impression Status post April 24 low anterior resection with diverting loop ileostomy for colovaginal fistula History of diverticulitis or abscess Plan Continue postop surgical care Continue full liquid diet to advance as tolerated Pain control Increase activity DVT and GI prophylaxis Progress note dictated for Dr. julian dupree on behalf of Dr. Wheat The above impression and plan of care have been discussed and directed by signing physician. Ana Francisco nurse practitioner acting as scribe for signing physician. <Yves Wheat - Last Filed: 04/28/18 17:56> Objective - Vital Signs Vital signs: Vital Signs Temp 99.6 F 04/28/18 14:45 Pulse 92 04/28/18 16:08 Resp 16 04/28/18 14:45 BP 170/77 04/28/18 14:45 Pulse Ox 96 04/28/18 14:45 Intake & Output 04/27/18 04/28/18 04/28/18 18:59 06:59 18:59 Intake Total 497 918 180 Output Total 640 340 450 Balance -143 578 -270 Intake: Intake, IV Titration 800 Amount D5-0.45% NaCl with KCl 800 20Meq/l 1,000 ml @ 50 mls /hr IV .Q20H [facility] Rx#: [id number] Oral 497 118 180 Output: Drainage 40 340 450 Abdomen 40 140 COLOSTOMY 450 Right Abdomen 200 Stool 600 Other: Voiding Method Indwelling Catheter # Voids 2 1 - Labs CBC & Chem 7: 04/28/18 06:13 04/28/18 06:13 Labs: Abnormal Lab Results - Last 24 Hours (Table) 04/27/18 04/28/18 04/28/18 Range/Units 20:20 06:13 06:13 Hgb 11.2 L (11.4-16.0) gm/dL Neutrophils # 8.3 H (1.3-7.7) k/uL Sodium 136 L (137-145) mmol/L Glucose 112 H (74-99) mg/dL POC Glucose (mg/dL) 134 H (75-99) mg/dL 04/28/18 04/28/18 Range/Units 06:45 11:23 Hgb (11.4-16.0) gm/dL Neutrophils # (1.3-7.7) k/uL Sodium (137-145) mmol/L Glucose (74-99) mg/dL POC Glucose (mg/dL) 111 H 105 H (75-99) mg/dL Assessment and Plan Assessment: As above. Patient doing well. Having bilious liquid stool through the ostomy. Did develop some leakage from around the ostomy appliance today. This is currently being addressed. No nausea or vomiting. Tolerating diet. Home care is being arranged. Dressing clean and dry. (1) Colovaginal fistula Current Visit: Yes Status: Acute Code(s): N82.4 - OTHER FEMALE INTESTINAL- GENITAL TRACT FISTULAE SNOMED Code(s): 806249430
--- NOTE | 2018-04-28 10:32 | P.PN ---
Subjective Progress Note Date: 04/28/18 This is a 67-year-old female with past medical history noted below for underlying below presented colovaginal fistula was admitted to the hospital and underwent elective low anterior resection with diverting loop ileostomy. Patient is postoperative day #1. She is doing fairly well. Her pain is well- controlled. She does not have any specific concerns or complaints. I was asked to see her for medical management. 04/28/2018 patient's pain is controlled. She is on a full liquid diet. She is having liquidy stool in her ileostomy bag. Denies any nausea or vomiting. Denies any chest pain or shortness of breath. She did have some coughing earlier that is cleared. She feels that it may be related to her ALLERGIES. Objective - Vital Signs Vital signs: Vital Signs Temp 98.1 F 04/28/18 09:00 Pulse 103 H 04/28/18 09:00 Resp 16 04/28/18 09:00 BP 156/86 04/28/18 09:00 Pulse Ox 95 04/28/18 09:00 Intake & Output 04/27/18 04/28/18 04/28/18 18:59 06:59 18:59 Intake Total 497 918 Output Total 640 340 150 Balance -143 578 -150 Intake: Intake, IV Titration 800 Amount D5-0.45% NaCl with KCl 800 20Meq/l 1,000 ml @ 50 mls /hr IV .Q20H [facility] Rx#: [id number] Oral 497 118 Output: Drainage 40 340 150 Abdomen 40 140 COLOSTOMY 150 Right Abdomen 200 Stool 600 Other: Voiding Method Indwelling Catheter # Voids 2 - Exam Head normocephalic Neck supple Lungs clear to auscultation bilaterally no wheezing or crackles Heart regular rate and rhythm S1-S2, no rub or gallop Abdomen is soft nontender nondistended positive bowel sounds no hepatosplenomegaly. Ileostomy with dark liquidy stool. Dried blood noted along the dressings. CINDY tube in place. Extremities no edema Neuro alert and orientated to 3 - Labs CBC & Chem 7: 04/28/18 06:13 04/28/18 06:13 Labs: Abnormal Lab Results - Last 24 Hours (Table) 04/27/18 04/27/18 04/27/18 Range/Units 11:23 16:53 20:20 Hgb (11.4-16.0) gm/dL Neutrophils # (1.3-7.7) k/uL Sodium (137-145) mmol/L Glucose (74-99) mg/dL POC Glucose (mg/dL) 114 H 111 H 134 H (75-99) mg/dL 04/28/18 04/28/18 04/28/18 Range/Units 06:13 06:13 06:45 Hgb 11.2 L (11.4-16.0) gm/dL Neutrophils # 8.3 H (1.3-7.7) k/uL Sodium 136 L (137-145) mmol/L Glucose 112 H (74-99) mg/dL POC Glucose (mg/dL) 111 H (75-99) mg/dL Assessment and Plan Assessment: 1. 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 Continue postoperative care. Gen. surgery following closely. Currently on a full liquid diet. Pain control. 2. Essential hypertension: Blood pressure well controlled. Continue Losartan and Metoprolol . We'll restart patient's Maxide. IV fluids hep-locked this morning. BP after losartan and metoprolol given was 156/86 3. Major depressive disorder 4. Underlying COPD with no evidence of exacerbation. Continue duo nebs as needed 5. Acute kidney injury: Resolved with IV fluid hydration. DVT prophylaxis subcu heparin and DVT prophylaxis Pepcid I performed an examination of the patient and discussed their management with the physician Staff Research Associate. I have reviewed the Physician Staff Research Associate's notes and agree with the documented findings and plan of care
[2018-04-28 11:26] LABS: Glucose,Whole Blood 105 mg/dL (75-99)
[2018-04-28] MEDS: TRIAMTERENE-HCTZ 37.5-25MG 1 EACH TAB PO SCH (11:44)
[2018-04-28] MEDS: IPRATROPIUM-ALBUTEROL 3 ML NEB INHALATION PRN (15:54)
[2018-04-28 17:10] LABS: Glucose,Whole Blood 99 mg/dL (75-99)
[2018-04-28 20:46] LABS: Glucose,Whole Blood 123 mg/dL (75-99)
[2018-04-28] MEDS: ATORVASTATIN 10 MG TAB PO SCH (21:29)
[2018-04-28] MEDS: LOSARTAN 50 MG TAB PO SCH (21:30)
[2018-04-28] MEDS: MONTELUKAST 10 MG TAB PO SCH (21:30)
[2018-04-28] MEDS: DULoxetine HCL 60 MG CAPSULE.DR PO SCH (21:30)
[2018-04-29] MEDS: diphenhydrAMINE 50 MG/ML 1 ML VIAL IVP PRN (00:11)
[2018-04-29] MEDS: HEPARIN SODIUM,PORCINE 5,000 UNIT/ML 1 ML VIAL SQ SCH ×3 (00:11→15:34)
[2018-04-29 07:13] LABS: Basophils % (A) 0 %; Eosinophils # (A) 0.1 k/uL (0-0.7); Eosinophils % (A) 1 %; HCT 35.4 % (34.0-46.0); HGB 11.6 gm/dL (11.4-16.0); Lymphocytes # (A) 1.2 k/uL (1.0-4.8); Lymphocytes % (A) 11 %; MCH 27.9 pg (25.0-35.0); MCHC 32.7 g/dL (31.0-37.0); MCV 85.4 fL (80.0-100.0); Mean Platelet Volume 8.1; Monocytes # (A) 0.9 k/uL (0-1.0); Monocytes % (A) 8 %; Neutrophils # (A) 8.4 k/uL (1.3-7.7); Neutrophils % (A) 77 %; Platelet Count 182 k/uL (150-450); RBC 4.15 m/uL (3.80-5.40); RDW 13.7 % (11.5-15.5); WBC 10.8 k/uL (3.8-10.6)
[2018-04-29 07:36] LABS: Glucose,Whole Blood 112 mg/dL (75-99)
[2018-04-29 07:49] LABS: Calcium 9.4 mg/dL (8.4-10.2)
[2018-04-29] MEDS: INSULIN ASPART 100 UNIT/ML 1 ML 10 ML VIAL SQ SCH ×4 (08:16→21:18)
[2018-04-29] MEDS: FLUTICASONE 50MCG/SPRAY NASAL 16GM EA NOSTRIL SCH (08:17)
[2018-04-29] MEDS: GABAPENTIN 400 MG CAP PO SCH ×3 (08:17→21:20)
[2018-04-29] MEDS: ALVIMOPAN 12 MG CAPSULE PO SCH ×2 (08:17→21:19)
[2018-04-29] MEDS: METOPROLOL SUCCINATE (ER) 50 MG TAB.ER.24H PO SCH (08:17)
[2018-04-29] MEDS: TRIAMTERENE-HCTZ 37.5-25MG 1 EACH TAB PO SCH (08:17)
[2018-04-29] MEDS: FAMOTIDINE 20 MG/2 ML VIAL IV SCH (08:17)
--- NOTE | 2018-04-29 09:49 | P.PN ---
Subjective Progress Note Date: 04/29/18 67-year-old female seen this morning is up ambulating on the unit ostomy functioning moderate amount of liquid stool reports no nausea no vomiting tolerating a diet states urinating no difficulty CINDY drain left lower quadrant serous drainage noted surgical dressing dry Status post April 24 low anterior resection with diverting loop ileostomy for colovaginal fistula Objective - Vital Signs Vital signs: Vital Signs Temp 97.8 F 04/29/18 00:08 Pulse 87 04/29/18 00:08 Resp 16 04/29/18 00:08 BP 132/79 04/29/18 00:08 Pulse Ox 95 04/29/18 00:08 Intake & Output 04/28/18 04/29/18 04/29/18 18:59 06:59 18:59 Intake Total 180 250 Output Total 450 525 Balance -270 -525 250 Intake: Oral 180 250 Output: Drainage 450 305 Abdomen 5 COLOSTOMY 450 Right Abdomen 300 Stool 220 Other: Voiding Method Indwelling Catheter # Voids 1 2 - Exam Physical exam 67-year-old female ambulating in the room denies dizziness lightheadedness chest pain or shortness of breath lungs adequate air movement bilaterally on room air no shortness of breath Heart S1-S2 audible and regular denying chest Abdomen surgical dressing dry bowel tones present CINDY drain left lower quadrant serous drainage surgical tenderness appropriate ostomy liquid stool noted in ostomy bag tolerating diet no nausea no vomiting urinating no difficulty Extremities no edema noted - Labs CBC & Chem 7: 04/29/18 06:27 04/29/18 06:27 Labs: Abnormal Lab Results - Last 24 Hours (Table) 04/28/18 04/28/18 04/29/18 Range/Units 11:23 20:44 06:27 WBC 10.8 H (3.8-10.6) k/uL Neutrophils # 8.4 H (1.3-7.7) k/uL Sodium (137-145) mmol/L Chloride (98-107) mmol/L Glucose (74-99) mg/dL POC Glucose (mg/dL) 105 H 123 H (75-99) mg/dL 04/29/18 04/29/18 Range/Units 06:27 07:32 WBC (3.8-10.6) k/uL Neutrophils # (1.3-7.7) k/uL Sodium 134 L (137-145) mmol/L Ch[place] 95 L (98-107) mmol/L Glucose 112 H (74-99) mg/dL POC Glucose (mg/dL) 112 H (75-99) mg/dL Assessment and Plan Assessment: Impression Status post April 24 low anterior resection with diverting loop ileostomy for colovaginal fistula History of diverticulitis or abscess Plan Continue postop surgical care Continue full liquid diet to advance as tolerated Pain control Increase activity DVT and GI prophylaxis Ostomy teaching Home care probable discharge in the next 24 hours progress note dictated for Dr. julian dupree on behalf of Dr. Wheat The above impression and plan of care have been discussed and directed by signing physician. Ana Francisco nurse practitioner acting as scribe for signing physician.
[2018-04-29 11:18] LABS: Glucose,Whole Blood 124 mg/dL (75-99)
[2018-04-29] MEDS: ACETAMINOPHEN TAB 325 MG TAB PO PRN ×2 (11:32→21:18)
[2018-04-29] MEDS: HYDROcodone/APAP 5-325MG 1 EACH TAB PO PRN (12:21)
--- NOTE | 2018-04-29 13:07 | P.PN ---
Subjective Progress Note Date: 04/29/18 This is a 67-year-old female with past medical history noted below for underlying below presented colovaginal fistula was admitted to the hospital and underwent elective low anterior resection with diverting loop ileostomy. Patient is postoperative day #1. She is doing fairly well. Her pain is well- controlled. She does not have any specific concerns or complaints. I was asked to see her for medical management. 04/28/2018 patient's pain is controlled. She is on a full liquid diet. She is having liquidy stool in her ileostomy bag. Denies any nausea or vomiting. Denies any chest pain or shortness of breath. She did have some coughing earlier that is cleared. She feels that it may be related to her ALLERGIES. On 04/29/2018 patient is alert and oriented 3 diet is being advanced gradually she denies any fever or chills no headache or dizziness no chest pain no shortness of breath no cough no nausea or vomiting she has mild diffuse abdominal pain there is liquid stool in her ileostomy bag she is able to urinate without difficulty Objective - Vital Signs Vital signs: Vital Signs Temp 99.4 F 04/29/18 08:16 Pulse 96 04/29/18 08:16 Resp 12 04/29/18 08:16 BP 140/84 04/29/18 08:16 Pulse Ox 93 L 04/29/18 11:52 Intake & Output 04/28/18 04/29/18 04/29/18 18:59 06:59 18:59 Intake Total 180 250 Output Total 450 525 Balance -270 -525 250 Intake: Oral 180 250 Output: Drainage 450 305 Abdomen 5 COLOSTOMY 450 Right Abdomen 300 Stool 220 Other: Voiding Method Indwelling Catheter # Voids 1 2 - Exam HEENT head normocephalic and atraumatic Neck is supple no JVD HEENT head normocephalic and atraumatic Chest exam few scattered rhonchi no wheezing Cardiac exam reveals regular heart sounds no gallops no murmurs Abdomen is soft nontender no organomegaly Extremity exam reveals no edema no cyanosis or clubbing - Labs CBC & Chem 7: 04/29/18 06:27 04/29/18 06:27 Labs: Abnormal Lab Results - Last 24 Hours (Table) 04/28/18 04/29/18 04/29/18 Range/Units 20:44 06:27 06:27 WBC 10.8 H (3.8-10.6) k/uL Neutrophils # 8.4 H (1.3-7.7) k/uL Sodium 134 L (137-145) mmol/L Chloride 95 L (98-107) mmol/L Glucose 112 H (74-99) mg/dL POC Glucose (mg/dL) 123 H (75-99) mg/dL 04/29/18 04/29/18 Range/Units 07:32 11:16 WBC (3.8-10.6) k/uL Neutrophils # (1.3-7.7) k/uL Sodium (137-145) mmol/L Chloride (98-107) mmol/L Glucose (74-99) mg/dL POC Glucose (mg/dL) 112 H 124 H (75-99) mg/dL Assessment and Plan Plan: 1. 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 Continue postoperative care. Gen. surgery following closely. Currently on a full liquid diet. Pain control. 2. Essential hypertension: Blood pressure well controlled. Continue Losartan and Metoprolol . We'll restart patient's Maxide. IV fluids hep-locked this morning. BP after losartan and metoprolol given was 156/86 3. Major depressive disorder 4. Underlying COPD with no evidence of exacerbation. Continue duo nebs as needed 5. Acute kidney injury: Resolved with IV fluid hydration. DVT prophylaxis subcu heparin and DVT prophylaxis Pepcid Patient is improving gradually possible plan for discharge tomorrow
[2018-04-29 17:02] LABS: Glucose,Whole Blood 127 mg/dL (75-99)
[2018-04-29 20:40] LABS: Glucose,Whole Blood 110 mg/dL (75-99)
[2018-04-29] MEDS: MONTELUKAST 10 MG TAB PO SCH (21:20)
[2018-04-29] MEDS: ATORVASTATIN 10 MG TAB PO SCH (21:20)
[2018-04-29] MEDS: LOSARTAN 50 MG TAB PO SCH (21:20)
[2018-04-29] MEDS: DULoxetine HCL 60 MG CAPSULE.DR PO SCH (21:20)
[2018-04-29] MEDS: FAMOTIDINE 20 MG TAB PO SCH (21:22)
[2018-04-30] MEDS: HEPARIN SODIUM,PORCINE 5,000 UNIT/ML 1 ML VIAL SQ SCH ×3 (00:05→17:51)
[2018-04-30] MEDS: HYDROcodone/APAP 5-325MG 1 EACH TAB PO PRN ×5 (00:11→22:05)
[2018-04-30] MEDS ORDERED: HYDROcodone/APAP 5-325MG 1 EACH TAB ONE (03:43)
[2018-04-30 07:25] LABS: Glucose,Whole Blood 118 mg/dL (75-99)
[2018-04-30 07:31] LABS: Basophils % (A) 0 %; Eosinophils # (A) 0.2 k/uL (0-0.7); Eosinophils % (A) 2 %; HCT 37.2 % (34.0-46.0); HGB 12.2 gm/dL (11.4-16.0); Lymphocytes # (A) 1.5 k/uL (1.0-4.8); Lymphocytes % (A) 12 %; MCH 27.8 pg (25.0-35.0); MCHC 32.8 g/dL (31.0-37.0); MCV 84.9 fL (80.0-100.0); Mean Platelet Volume 7.7; Monocytes # (A) 0.7 k/uL (0-1.0); Monocytes % (A) 6 %; Neutrophils # (A) 9.3 k/uL (1.3-7.7); Neutrophils % (A) 78 %; Platelet Count 224 k/uL (150-450); RBC 4.38 m/uL (3.80-5.40); RDW 13.4 % (11.5-15.5)
[2018-04-30] MEDS: INSULIN ASPART 100 UNIT/ML 1 ML 10 ML VIAL SQ SCH ×4 (07:33→20:49)
[2018-04-30 07:54] LABS: Albumin 3.5 g/dL (3.5-5.0); Calcium 9.4 mg/dL (8.4-10.2); Potassium 4.3 mmol/L (3.5-5.1); Total Bilirubin 0.3 mg/dL (0.2-1.3); Total Protein 5.7 g/dL (6.3-8.2)
[2018-04-30] MEDS: ALVIMOPAN 12 MG CAPSULE PO SCH ×2 (08:36→20:09)
[2018-04-30] MEDS: FAMOTIDINE 20 MG TAB PO SCH (08:36)
[2018-04-30] MEDS: FLUTICASONE 50MCG/SPRAY NASAL 16GM EA NOSTRIL SCH (08:36)
[2018-04-30] MEDS: TRIAMTERENE-HCTZ 37.5-25MG 1 EACH TAB PO SCH (08:37)
[2018-04-30] MEDS: METOPROLOL SUCCINATE (ER) 50 MG TAB.ER.24H PO SCH (08:37)
[2018-04-30] MEDS: GABAPENTIN 400 MG CAP PO SCH ×3 (08:37→20:09)
[2018-04-30 11:38] LABS: Glucose,Whole Blood 111 mg/dL (75-99)
[2018-04-30] MEDS: NYSTATIN 100,000 UNIT/ML SUSP 500,000 UNIT/5 ML CUP PO SCH ×3 (14:20→20:10)
[2018-04-30 14:41] LABS: Appearance,Urine Cloudy (Clear); Bilirubin,Urine Negative (Negative); Blood,Urine Negative (Negative); Color,Urine Yellow; Glucose,Urine (UA) Negative (Negative); Hyaline Casts,Urine 8 /lpf (0-2); Ketones,Urine Negative (Negative); Leukocyte Esterase,Urine Trace (Negative); Mucus,Urine Occasional /hpf; Nitrite,Urine Negative (Negative); PH, Urine 5.5 (5.0-8.0); Protein,Urine 1+ (Negative); RBC,Urine 1 /hpf (0-5); Specific Gravity,Urine 1.015 (1.001-1.035); Squamous Epithelial Cell,Urine 6 /hpf (0-4); Urobilinogen,Urine <2.0 mg/dL (<2.0); WBC,Urine 5 /hpf (0-5)
--- NOTE | 2018-04-30 15:06 | XR ---
EXAMINATION TYPE: XR chest 2V DATE OF EXAM: 04/30/2018 COMPARISON: NONE INDICATION: Cough and fever postsurgical TECHNIQUE: Frontal and lateral views of the chest are obtained. FINDINGS: The heart size is normal. The pulmonary vasculature is normal. Atelectasis within the right midlung.. IMPRESSION: 1. Streak atelectasis right midlung.
--- NOTE | 2018-04-30 15:31 | P.PN ---
Subjective Progress Note Date: 04/30/18 This is a 67-year-old female with past medical history noted below for underlying below presented colovaginal fistula was admitted to the hospital and underwent elective low anterior resection with diverting loop ileostomy. Patient is postoperative day #1. She is doing fairly well. Her pain is well- controlled. She does not have any specific concerns or complaints. I was asked to see her for medical management. 04/28/2018 patient's pain is controlled. She is on a full liquid diet. She is having liquidy stool in her ileostomy bag. Denies any nausea or vomiting. Denies any chest pain or shortness of breath. She did have some coughing earlier that is cleared. She feels that it may be related to her ALLERGIES. 04/30/2018 patient had another low-grade temp last night of 100.4. White count has increased from 10.8-12. She is reporting that her abdominal pain is controlled. Still having liquidy stool from her ileostomy. Denies any chest pain or shortness of breath. Doesn't having some mild cough. Denies any burning with urination. Urinalysis with culture have been ordered. Patient does have evidence of oral thrush. Chest x-ray showed evidence of atelectasis. Patient was encouraged to use her incentive spirometer. Objective - Vital Signs Vital signs: Vital Signs Temp 98 F 04/30/18 14:50 Pulse 89 04/30/18 14:50 Resp 16 04/30/18 14:50 BP 154/63 04/30/18 14:50 Pulse Ox 96 04/30/18 14:50 Intake & Output 04/29/18 04/30/18 04/30/18 18:59 06:59 18:59 Intake Total 250 118 750 Output Total 530 220 Balance 250 -412 530 Intake: Oral 250 118 750 Output: Drainage 130 20 Abdomen 130 20 Stool 400 200 Other: # Voids 1 2 - Exam Head normocephalic Neck supple Lungs clear to auscultation bilaterally no wheezing or crackles Heart regular rate and rhythm S1-S2, no rub or gallop Abdomen is soft nontender nondistended positive bowel sounds no hepatosplenomegaly. Ileostomy with dark liquidy stool. Incision site is clean dry and intact. Mild redness noted around the CINDY tube no drainage. Fluid from CINDY tube is thick and red Extremities no edema Neuro alert and orientated to 3 - Labs CBC & Chem 7: 04/30/18 07:05 04/30/18 07:05 Labs: Abnormal Lab Results - Last 24 Hours (Table) 04/29/18 04/29/18 04/30/18 Range/Units 17:00 20:38 07:05 WBC 12.0 H (3.8-10.6) k/uL Neutrophils # 9.3 H (1.3-7.7) k/uL BUN (7-17) mg/dL Glucose (74-99) mg/dL POC Glucose (mg/dL) 127 H 110 H (75-99) mg/dL Total Protein (6.3-8.2) g/dL Urine Appearance (Clear) Urine Protein (Negative) Ur Leukocyte Esterase (Negative) Ur Squamous Epith Cells (0-4) /hpf Hyaline Casts (0-2) /lpf Urine Mucus (None) /hpf 04/30/18 04/30/18 04/30/18 Range/Units 07:05 07:23 11:27 WBC (3.8-10.6) k/uL Neutrophils # (1.3-7.7) k/uL BUN 19 H (7-17) mg/dL Glucose 108 H (74-99) mg/dL POC Glucose (mg/dL) 118 H 111 H (75-99) mg/dL Total Protein 5.7 L (6.3-8.2) g/dL Urine Appearance (Clear) Urine Protein (Negative) Ur Leukocyte Esterase (Negative) Ur Squamous Epith Cells (0-4) /hpf Hyaline Casts (0-2) /lpf Urine Mucus (None) /hpf 04/30/18 Range/Units 14:00 WBC (3.8-10.6) k/uL Neutrophils # (1.3-7.7) k/uL BUN (7-17) mg/dL Glucose (74-99) mg/dL POC Glucose (mg/dL) (75-99) mg/dL Total Protein (6.3-8.2) g/dL Urine Appearance Cloudy H (Clear) Urine Protein 1+ H (Negative) Ur Leukocyte Esterase Trace H (Negative) Ur Squamous Epith Cells 6 H (0-4) /hpf Hyaline Casts 8 H (0-2) /lpf Urine Mucus Occasional H (None) /hpf Assessment and Plan Assessment: 1. 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 Continue postoperative care. Gen. surgery following closely. Continue low fiber diet Pain control. 2. Essential hypertension: Blood pressure well controlled. Continue Losartan, metoprolol and Maxide 3. Major depressive disorder 4. Underlying COPD with no evidence of exacerbation. Continue duo nebs as needed 5. Acute kidney injury: Resolved with IV fluid hydration. 6. Leukocytosis with low-grade temp. Chest x-ray showing evidence of atelectasis. Continue incentive spirometry use. Also will check urinalysis and culture rule out UTI. 7. Oral thrush start nystatin swish and swallow Hold discharge for today due to low-grade temp and white count. We'll reevaluate possible discharge for tomorrow DVT prophylaxis subcu heparin and DVT prophylaxis Pepcid I performed an examination of the patient and discussed their management with the physician Fine Jewelry Sales Associate. I have reviewed the Physician Fine Jewelry Sales Associate's notes and agree with the documented findings and plan of care
[2018-04-30] MEDS: IPRATROPIUM-ALBUTEROL 3 ML NEB INHALATION PRN (15:44)
--- NOTE | 2018-04-30 16:35 | P.PN ---
Subjective Progress Note Date: 04/30/18 67-year-old female sitting up in bed. Patient stated that she did ambulate in the hallway yesterday. Ostomy teaching was initiated today. Patient does report having some abdominal cramping. Did note the white count was 12 patient did have a temp last night at 7 of 100.4. Temp this morning 98 urinalysis was negative Status post April 24 low anterior resection with a rating loop ileostomy for colovaginal fistula Objective - Vital Signs Vital signs: Vital Signs Temp 97.0 F L 04/30/18 07:00 Pulse 84 04/30/18 07:00 Resp 16 04/30/18 07:00 BP 123/58 04/30/18 07:00 Pulse Ox 94 L 04/30/18 07:00 Intake & Output 04/29/18 04/30/18 04/30/18 18:59 06:59 18:59 Intake Total 250 118 250 Output Total 530 Balance 250 -412 250 Intake: Oral 250 118 250 Output: Drainage 130 Abdomen 130 Stool 400 Other: # Voids 1 2 - Exam Physical exam 67-year-old female ambulating in the room denies dizziness lightheadedness chest pain or shortness of breath lungs adequate air movement bilaterally on room air no shortness of breath Heart S1-S2 audible and regular denying chest Abdomen surgical dressing dry bowel tones present CINDY drain left lower quadrant serous drainage surgical tenderness appropriate ostomy liquid stool noted in ostomy bag tolerating diet no nausea no vomiting urinating no difficulty tolerating diet denies any burning on urination Extremities no edema noted - Labs CBC & Chem 7: 04/30/18 07:05 04/30/18 07:05 Labs: Abnormal Lab Results - Last 24 Hours (Table) 04/29/18 04/29/18 04/29/18 Range/Units 11:16 17:00 20:38 WBC (3.8-10.6) k/uL Neutrophils # (1.3-7.7) k/uL BUN (7-17) mg/dL Glucose (74-99) mg/dL POC Glucose (mg/dL) 124 H 127 H 110 H (75-99) mg/dL Total Protein (6.3-8.2) g/dL 04/30/18 04/30/18 04/30/18 Range/Units 07:05 07:05 07:23 WBC 12.0 H (3.8-10.6) k/uL Neutrophils # 9.3 H (1.3-7.7) k/uL BUN 19 H (7-17) mg/dL Glucose 108 H (74-99) mg/dL POC Glucose (mg/dL) 118 H (75-99) mg/dL Total Protein 5.7 L (6.3-8.2) g/dL Assessment and Plan Assessment: Impression Status post April 24 low anterior resection with diverting loop ileostomy for colovaginal fistula History of diverticulitis or abscess Postop Oral thrush Postop chest x-ray atelectasis Major depressive disorder Underlying COPD was no evidence of an exacerbation Acute kidney injury resolved with IV fluid hydration Essential hypertension Low-grade temp with mild leukocytosis Plan Continue postop surgical care Continue full liquid diet to advance as tolerated Pain control Increase activity DVT and GI prophylaxis Ostomy teaching Home care probable discharge in the next 24 hours progress note dictated for Dr. julian dupree on behalf of Dr. Wheat The above impression and plan of care have been discussed and directed by signing physician. Ana Francisco nurse practitioner acting as scribe for signing physician.
[2018-04-30 17:35] LABS: Glucose,Whole Blood 112 mg/dL (75-99)
[2018-04-30] MEDS: LOSARTAN 50 MG TAB PO SCH (20:09)
[2018-04-30] MEDS: DULoxetine HCL 60 MG CAPSULE.DR PO SCH (20:09)
[2018-04-30] MEDS: ATORVASTATIN 10 MG TAB PO SCH (20:09)
[2018-04-30] MEDS: MONTELUKAST 10 MG TAB PO SCH (20:09)
[2018-04-30 20:45] LABS: Glucose,Whole Blood 120 mg/dL (75-99)
[2018-05-01] MEDS: HEPARIN SODIUM,PORCINE 5,000 UNIT/ML 1 ML VIAL SQ SCH ×3 (00:46→15:04)
[2018-05-01] MEDS: HYDROcodone/APAP 5-325MG 1 EACH TAB PO PRN ×2 (03:38→15:06)
[2018-05-01 06:51] VITALS: BP 114/71; PULSE 87; RESP 14; TEMP 98.2
[2018-05-01 07:04] LABS: Glucose,Whole Blood 101 mg/dL (75-99)
[2018-05-01] MEDS: INSULIN ASPART 100 UNIT/ML 1 ML 10 ML VIAL SQ SCH ×2 (07:34→11:38)
[2018-05-01] MEDS: FLUTICASONE 50MCG/SPRAY NASAL 16GM EA NOSTRIL SCH (08:25)
[2018-05-01] MEDS: NYSTATIN 100,000 UNIT/ML SUSP 500,000 UNIT/5 ML CUP PO SCH ×2 (08:25→13:31)
[2018-05-01] MEDS: METOPROLOL SUCCINATE (ER) 50 MG TAB.ER.24H PO SCH (08:25)
[2018-05-01] MEDS: TRIAMTERENE-HCTZ 37.5-25MG 1 EACH TAB PO SCH (08:25)
[2018-05-01] MEDS: ALVIMOPAN 12 MG CAPSULE PO SCH (08:25)
[2018-05-01] MEDS: GABAPENTIN 400 MG CAP PO SCH ×2 (08:25→15:04)
[2018-05-01] MEDS ORDERED: FAMOTIDINE 20 MG TAB PO SCH (09:00)
[2018-05-01 09:35] LABS: Basophils % (A) 0 %; Eosinophils # (A) 0.2 k/uL (0-0.7); Eosinophils % (A) 2 %; HCT 39.2 % (34.0-46.0); HGB 12.5 gm/dL (11.4-16.0); Lymphocytes # (A) 1.7 k/uL (1.0-4.8); Lymphocytes % (A) 14 %; MCH 27.1 pg (25.0-35.0); MCHC 31.8 g/dL (31.0-37.0); MCV 85.2 fL (80.0-100.0); Mean Platelet Volume 8.3; Monocytes # (A) 0.9 k/uL (0-1.0); Monocytes % (A) 7 %; Neutrophils # (A) 9.1 k/uL (1.3-7.7); Neutrophils % (A) 76 %; Platelet Count 264 k/uL (150-450); RDW 13.5 % (11.5-15.5)
[2018-05-01 09:47] LABS: Albumin 3.7 g/dL (3.5-5.0); Calcium 9.5 mg/dL (8.4-10.2); Potassium 4.8 mmol/L (3.5-5.1); Total Bilirubin 0.3 mg/dL (0.2-1.3)
[2018-05-01 11:14] LABS: Glucose,Whole Blood 108 mg/dL (75-99)
--- NOTE | 2018-05-01 13:08 | P.DS ---
Providers Date of admission: 04/24/18 08:34 Expected date of discharge: 05/01/18 Attending physician: Yves Wheat Consults: 04/24/18 14:33 Consult Physician Routine Consulting Provider: Francy Bolaños Consult Reason/Comments: med mgmt Do you want consulting provider notified?: Yes Primary care physician: Francy Mami [facility] Course: A 67-year-old female whose primary surgeon is Dr. Wheat who was admitted on the day of this admission to be evaluated for abdominal discomfort. Patient had developed a spontaneous vaginal drainage which was foul-smelling brownish in color. Patient has had a history of diverticular abscess over the last several months. Last colonoscopy did show diverticulitis without an obvious fistula did have a gynecological workup which was normal Patient elected to undergo on April 24 low anterior resection with a diverting loop ileostomy for colovaginal fistula postop patient developed leukocytosis a white count was 12 with a low-grade temp of 100.4. On the day of discharge the last 48 hours remained afebrile repeat white count 12 urinalysis was negative chest x-ray showed atelectasis right midlung ostomy teaching was initiated was able to ambulate in the unit. Ostomy was functioning with a moderate amount of brownish stool. Patient was felt to be medically stable and appropriate proceed with a discharge Impression discharge diagnosis Status post April 24 low anterior resection with diverting loop ileostomy for colovaginal fistula History of diverticulitis abscess Postop Oral thrush Postop chest x-ray atelectasis Major depressive disorder Underlying COPD was no evidence of an exacerbation Acute kidney injury resolved with IV fluid hydration Essential hypertension Low-grade temp with mild leukocytosis Plan - Discharge Summary Discharge Rx Participant: Yes New Discharge Prescriptions: New HYDROcodone/APAP 5-325MG [Raymond 5-325] 1 each PO Q4HR PRN #20 tab PRN Reason: Pain Continue Triamterene/Hydrochlorothiazid [Triamterene-Hctz 37.5-25 mg Tb] 1 tab PO DAILY Simvastatin [Zocor] 20 mg PO HS Albuterol Sulfate [Proair Hfa] 1 - 2 puff INHALATION RT-Q6H PRN PRN Reason: sob Omeprazole [PriLOSEC] 40 mg PO DAILY Montelukast [Singulair] 10 mg PO HS Losartan Potassium [Cozaar] 100 mg PO HS Vitamin E (Dl,Tocopheryl Acet) [Vitamin E] 400 unit PO DAILY Gabapentin [Neurontin] 800 mg PO TID Fluticasone Nasal [place] [Flonase Nasal [place]] 1 spray EA NOSTRIL DAILY DULoxetine HCL [Cymbalta] 60 mg PO HS Pioglitazone [Actos] 30 mg PO DAILY Pyridoxine HCl (Vitamin B6) [Vitamin B-6] 100 mg PO DAILY Calcium Carbonate/Vitamin D3 [Calcium 600-Vit D3 400 Caplet] 1 tab PO BID Diphenoxylate HCl/Atropine [Lomotil 2.5-0.025 mg Tablet] 1 tab PO Q48H PRN PRN Reason: Diarrhea Umeclidinium Brm/Vilanterol Tr [Anoro Ellipta 62.5-25 Mcg INH] 1 puff INHALATION RT-DAILY Metoprolol Succinate [Toprol Xl] 50 mg PO DAILY Acetaminophen [Tylenol Extra Strength] 1,000 mg PO Q6H PRN PRN Reason: Pain Discharge Medication List Albuterol Sulfate [Proair Hfa] 1 - 2 puff INHALATION RT-Q6H PRN 12/02/17 [ History] DULoxetine HCL [Cymbalta] 60 mg PO HS 12/02/17 [History] Fluticasone Nasal [place] [Flonase Nasal [place]] 1 spray EA NOSTRIL DAILY 12/02/17 [History] Gabapentin [Neurontin] 800 mg PO TID 12/02/17 [History] Losartan Potassium [Cozaar] 100 mg PO HS 12/02/17 [History] Montelukast [Singulair] 10 mg PO HS 12/02/17 [History] Omeprazole [PriLOSEC] 40 mg PO DAILY 12/02/17 [History] Pioglitazone [Actos] 30 mg PO DAILY 12/02/17 [History] Pyridoxine HCl (Vitamin B6) [Vitamin B-6] 100 mg PO DAILY 12/02/17 [History] Simvastatin [Zocor] 20 mg PO HS 12/02/17 [History] Triamterene/Hydrochlorothiazid [Triamterene-Hctz 37.5-25 mg Tb] 1 tab PO DAILY 12/02/17 [History] Vitamin E (Dl,Tocopheryl Acet) [Vitamin E] 400 unit PO DAILY 12/02/17 [History] Acetaminophen [Tylenol Extra Strength] 1,000 mg PO Q6H PRN 03/06/18 [History] Calcium Carbonate/Vitamin D3 [Calcium 600-Vit D3 400 Caplet] 1 tab PO BID [History] Diphenoxylate HCl/Atropine [Lomotil 2.5-0.025 mg Tablet] 1 tab PO Q48H PRN 03/06 [History] Metoprolol Succinate [Toprol Xl] 50 mg PO DAILY 03/06/18 [History] Umeclidinium Brm/Vilanterol Tr [Anoro Ellipta 62.5-25 Mcg INH] 1 puff INHALATION RT-DAILY 03/06/18 [History] HYDROcodone/APAP 5-325MG [Raymond 5-325] 1 each PO Q4HR PRN #20 tab 05/01/18 [Rx] Follow up Appointment(s)/Referral(s): Yves Wheat MD [Medical Doctor] - 05/07/18 10:00 am [facility], [NON-STAFF] - Patient Instructions/Handouts: Diverticulitis (GEN), Ileostomy Care (GEN) Activity/Diet/Wound Care/Special Instructions: Loop Ileostomy Care Instructions Pouching system changed on: 04.30.2018 Mrs Hernandez will have the following supplies for home use from [facility] : Coloplast convex one piece cut to fit #[id number] pouch (3) for home use to use with ostomy belt for securement and seal If Coloplast product does not seal use the Convatec one piece pouch cut to fit # [id number] (3) apply the Jayant seal to the skin creases Jayant seals to fit skin crease (4) Apply skin prep around the stoma followed by Ostomy powder for around the stoma if irritated irritation Mrs Hernandez has 12 skin preps for home use. Change the pouching system every 3-4 days Empty the pouch in the bathroom when the pouch is 1/2 to 1/3 full. Mrs Hernandez will be receiving additional supplies for the ileostomy from [employer], Coloplast, and Convatec within 7 days from discharge to her home. Home Care please arrange ostomy supplies with the surgeon & patient with Durable MEdical equipment in 2-3 weeks once stoma is permanent size. No tub bath for six weeks. Shower daily. No lifting over 10 pounds for the next 6 weeks. Monitor CINDY drain and record. May use ice packs to surgical site. No driving while taking narcotic for pain. At the time of discharge the consent form was obtained for the opioid start talking form Discharge Disposition: HOME WITH HOME HEALTH SERVICES
--- NOTE | 2018-05-01 13:57 | P.PN ---
Subjective Progress Note Date: 05/01/18 This is a 67-year-old female with past medical history noted below for underlying below presented colovaginal fistula was admitted to the hospital and underwent elective low anterior resection with diverting loop ileostomy. Patient is postoperative day #1. She is doing fairly well. Her pain is well- controlled. She does not have any specific concerns or complaints. I was asked to see her for medical management. 04/28/2018 patient's pain is controlled. She is on a full liquid diet. She is having liquidy stool in her ileostomy bag. Denies any nausea or vomiting. Denies any chest pain or shortness of breath. She did have some coughing earlier that is cleared. She feels that it may be related to her ALLERGIES. 04/30/2018 patient had another low-grade temp last night of 100.4. White count has increased from 10.8-12. She is reporting that her abdominal pain is controlled. Still having liquidy stool from her ileostomy. Denies any chest pain or shortness of breath. Doesn't having some mild cough. Denies any burning with urination. Urinalysis with culture have been ordered. Patient does have evidence of oral thrush. Chest x-ray showed evidence of atelectasis. Patient was encouraged to use her incentive spirometer. 05/01/2018 patient has had no further fevers. White count is remained at 12. She has any chest pain or shortness of breath. Urinalysis is negative for infection. Patient is stable for discharge home. Objective - Vital Signs Vital signs: Vital Signs Temp 98.2 F 05/01/18 06:47 Pulse 87 05/01/18 06:47 Resp 14 05/01/18 06:47 BP 114/71 05/01/18 06:47 Pulse Ox 94 L 05/01/18 06:47 Intake & Output 04/30/18 05/01/18 05/01/18 18:59 06:59 18:59 Intake Total 750 180 Output Total 220 10 Balance 530 -10 180 Weight 98.883 kg Intake: Oral 750 180 Output: Drainage 20 10 Abdomen 20 Right Abdomen 10 Stool 200 Other: # Voids 2 2 - Exam Head normocephalic Neck supple Lungs clear to auscultation bilaterally no wheezing or crackles Heart regular rate and rhythm S1-S2, no rub or gallop Abdomen is soft nontender nondistended positive bowel sounds no hepatosplenomegaly. Ileostomy with dark liquidy stool. Incision site is clean dry and intact. Mild redness noted around the CINDY tube no drainage. Extremities no edema Neuro alert and orientated to 3 - Labs CBC & Chem 7: 05/01/18 07:52 05/01/18 07:52 Labs: Abnormal Lab Results - Last 24 Hours (Table) 04/30/18 04/30/18 04/30/18 Range/Units 14:00 17:30 20:43 WBC (3.8-10.6) k/uL Neutrophils # (1.3-7.7) k/uL Sodium (137-145) mmol/L Chloride (98-107) mmol/L BUN (7-17) mg/dL Creatinine (0.52-1.04) mg/dL POC Glucose (mg/dL) 112 H 120 H (75-99) mg/dL Total Protein (6.3-8.2) g/dL Urine Appearance Cloudy H (Clear) Urine Protein 1+ H (Negative) Ur Leukocyte Esterase Trace H (Negative) Ur Squamous Epith Cells 6 H (0-4) /hpf Hyaline Casts 8 H (0-2) /lpf Urine Mucus Occasional H (None) /hpf 05/01/18 05/01/18 05/01/18 Range/Units 07:01 07:52 07:52 WBC 12.0 H (3.8-10.6) k/uL Neutrophils # 9.1 H (1.3-7.7) k/uL Sodium 136 L (137-145) mmol/L Chloride 97 L (98-107) mmol/L BUN 32 H (7-17) mg/dL Creatinine 1.05 H (0.52-1.04) mg/dL POC Glucose (mg/dL) 101 H (75-99) mg/dL Total Protein 6.0 L (6.3-8.2) g/dL Urine Appearance (Clear) Urine Protein (Negative) Ur Leukocyte Esterase (Negative) Ur Squamous Epith Cells (0-4) /hpf Hyaline Casts (0-2) /lpf Urine Mucus (None) /hpf 05/01/18 Range/Units 11:11 WBC (3.8-10.6) k/uL Neutrophils # (1.3-7.7) k/uL Sodium (137-145) mmol/L Chloride (98-107) mmol/L BUN (7-17) mg/dL Creatinine (0.52-1.04) mg/dL POC Glucose (mg/dL) 108 H (75-99) mg/dL Total Protein (6.3-8.2) g/dL Urine Appearance (Clear) Urine Protein (Negative) Ur Leukocyte Esterase (Negative) Ur Squamous Epith Cells (0-4) /hpf Hyaline Casts (0-2) /lpf Urine Mucus (None) /hpf Assessment and Plan Assessment: 1. 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 Continue postoperative care. Gen. surgery following closely. Continue low fiber diet Pain control. 2. Essential hypertension: Blood pressure well controlled. Continue Losartan, metoprolol and Maxide 3. Major depressive disorder 4. Underlying COPD with no evidence of exacerbation. Continue duo nebs as needed 5. Acute kidney injury: Resolved with IV fluid hydration. 6. Leukocytosis with low-grade temp. Chest x-ray showing evidence of atelectasis. Continue incentive spirometry use. Possibly reactive from surgery as well as atelectasis and oral thrush. She'll continue with the nystatin swish and swallow. Encourage incentive spirometry use. Patient has had no further fevers. 7. Oral thrush start nystatin swish and swallow Patient is medically stable for discharge. We'll have her follow up with Dr. Bolaños on Friday. Patient has been encouraged to monitor her temperatures for any fever. Also, patient has been informed if she notices any redness or drainage around incision sites to return to the office or hospital. DVT prophylaxis subcu heparin and DVT prophylaxis Pepcid I performed an examination of the patient and discussed their management with the physician Sole Rounder. I have reviewed the Physician Sole Rounder's notes and agree with the documented findings and plan of care
--- NOTE | 2018-05-04 15:20 | CDI ---
Last Revision, October 2017 Documentation Clarification Form Date: 05/04/18 From: Yohana Barroso Phone: If you have a question regarding this query, please contact Sydnie Nascimento at [phone] between 8am and 5pm. Admit Date: 04/24/2018 8:34:00 AM Patient Name: Ansley Hernandez Visit Number: [id number] Discharge Date: 05/01/18 ATTENTION: The Clinical Documentation Specialists (CDI) and [facility] Coding Staff appreciate your assistance in clarifying documentation. Please respond to the clarification below the line at the bottom and electronically sign. The CDI & [facility] Coding staff will review the response and follow-up if needed. Please note: Queries are made part of the Legal Health Record. If you have any questions, please contact the author of this message via ITS. Dr. Mana Baxter Documentation in the registered dieteician's assessment states that patient is obese. Patient history/risk factors: Patient has a history of diabetes, fibromyalgia, depression, hypertension and obstructive sleep apnea. Clinical Indicators: BMI 38.0 Please clarify if the patient is: Overweight Obese(please clarify type): Other(please specify) Unable to determine MTDD
--- NOTE | 2018-05-05 08:17 | CDI ---
Last Revision, October 2017 Documentation Clarification Form Date: May 05, 2018 From: Samantha Magaña RN Admit Date: 04/24/2018 8:34:00 AM Patient Name: Ansley Hernandez Visit Number: [id number] Discharge Date: 05/01/18 ATTENTION: The Clinical Documentation Specialists (CDI) and [facility] Coding Staff appreciate your assistance in clarifying documentation. Please respond to the clarification below the line at the bottom and electronically sign. The CDI & [facility] Coding staff will review the response and follow-up if needed. Please note: Queries are made part of the Legal Health Record. If you have any questions, please contact the author of this message via ITS. Dr. Francy Bolaños, Post operatively Atelectasis was found on 04/30 CXR , and is also documented in the 04/30 in your PN and in the D/S. On 04.30 patient developed a fever of 110.4. Patients Admitting Diagnosis: Colovaginal fistula Post-Operative Diagnosis: Colovaginal fistula Procedure performed: Low anterior resection with diverting loop ileostomy History/Risk Factors: asthma, cancer, COPD, DM, fibromyalgia, hyperlipidemia, HTN, rheumatoid arthritis, diverticulitis, depression Clinical Indicators: Treatment: Ambulate, incentive [id number] CXR: Streak atelectasis right midlung Medications: Tylenol In order to accurately reflect this patients severity of illness, please clarify if the post-operative diagnosis is: An expected post-procedural or post-surgical condition; Integral to the procedure; Inherent to the procedure; An unexpected post-procedural or post-surgical condition related to surgical care; Other, please specify Unable to determine Please clarify the significance of the atelectasis to the patient stay Please continue to document in your progress notes, under the line below and/or in the discharge summary in order to capture severity of illness and risk of mortality. Include clinical findings that support your diagnosis. MTDD
--- NOTE | 2018-05-14 10:13 | CDI ---
Last Revision, October 2017 Documentation Clarification Form Date: 05/05/2018 8:17:00 AM From: Samantha Magaña Admit Date: 04/24/2018 8:34:00 AM Patient Name: Ansley Hernandez Visit Number: [id number] ATTENTION: The Clinical Documentation Specialists (CDI) and [facility] Coding Staff appreciate your assistance in clarifying documentation. Please respond to the clarification below the line at the bottom and electronically sign. The CDI & [facility] Coding staff will review the response and follow-up if needed. Please note: Queries are made part of the Legal Health Record. If you have any questions, please contact the author of this message via ITS. Dr. Francy Bolaños, Atelectasis is documented in the 04/30 in your PN. Patients Admitting Diagnosis: Colovaginal fistula Post-Operative Diagnosis: Colovaginal fistula Procedure performed: Low anterior resection with diverting loop ileostomy History/Risk Factors: asthma, cancer,COPD,DM, fibromyalgia, hyperlipidemia, HTN , rheumatoid arthritis, sleep apnea, diverticulitis, depression Clinical Indicators: Treatment: Ambulate, incentive spirometry CXR: Streak atelectasis right midlung In order to accurately reflect this patients severity of illness, please clarify if the post-operative diagnosis is: An expected post-procedural or post-surgical condition; Integral to the procedure; Inherent to the procedure; An unexpected post-procedural or post-surgical condition related to surgical care; Other, please specify Unable to determine Please clarify the significance of the atelectasis to the patient stay Please continue to document in your progress notes , under the line below and discharge summary in order to capture severity of illness and risk of mortality. Include clinical findings that support your diagnosis. MTDD
--- NOTE | 2018-05-14 11:40 | CDI ---
Last Revision, October 2017 Documentation Clarification Form Date: 05/04/2018 3:20:00 PM From: Yohana Barroso Phone: Admit Date: 04/24/2018 8:34:00 AM Patient Name: Ansley Hernandez Visit Number: [id number] Discharge Date: ATTENTION: The Clinical Documentation Specialists (CDI) and [facility] Coding Staff appreciate your assistance in clarifying documentation. Please respond to the clarification below the line at the bottom and electronically sign. The CDI & [facility] Coding staff will review the response and follow-up if needed. Please note: Queries are made part of the Legal Health Record. If you have any questions, please contact the author of this message via ITS. Dr. Mana Baxter Thank you for signing your previous query. Please document a response on this form before signing this query. Documentation in the dietetic technician registered's assessment states that patient is obese. Patient history/risk factors: Patient has a history of diabetes, fibromyalgia, depression, hypertension and obstructive sleep apnea. Clinical Indicators: BMI 38.0 Please clarify if the patient is: Overweight Obese(please clarify type): Other(please specify) Unable to determine MTDD
--- NOTE | 2018-05-15 10:03 | CDI ---
Last Revision, October 2017 Documentation Clarification Form Date: 05/05/2018 8:17:00 AM From: Samantha Magaña Admit Date: 04/24/2018 8:34:00 AM Patient Name: Ansley Hernandez Visit Number: [id number] Discharge Date: ATTENTION: The Clinical Documentation Specialists (CDI) and [facility] Coding Staff appreciate your assistance in clarifying documentation. Please respond to the clarification below the line at the bottom and electronically sign. The CDI & [facility] Coding staff will review the response and follow-up if needed. Please note: Queries are made part of the Legal Health Record. If you have any questions, please contact the author of this message via ITS. Dr. Francy Bolaños, Atelectasis is documented in the 04/30 in your PN. Patients Admitting Diagnosis: Colovaginal fistula Post-Operative Diagnosis: Colovaginal fistula Procedure performed: Low anterior resection with diverting loop ileostomy History/Risk Factors: asthma, cancer,COPD,DM, fibromyalgia, hyperlipidemia, HTN , rheumatoid arthritis, sleep apnea, diverticulitis, depression Clinical Indicators: Treatment: Ambulate, incentive spirometry CXR: Streak atelectasis right midlung In order to accurately reflect this patients severity of illness, please clarify if the post-operative diagnosis is: An expected post-procedural or post-surgical condition; Integral to the procedure; Inherent to the procedure; An unexpected post-procedural or post-surgical condition related to surgical care; Other, please specify Unable to determine Please clarify the significance of the atelectasis to the patient stay Please continue to document in your progress notes and discharge summary in order to capture severity of illness and risk of mortality. Include clinical findings that support your diagnosis. Atelectasis an expected post surgical condition MTDD
== END 2018-05-01 16:15 | disposition home health service (06) | DRG 330 ==
LOC: 2ORMAIN 08:34 → 3SUR 14:49
PROVIDERS: ADMIT Surgery; ATTEND Surgery
PROC: 0D1B0Z4 Bypass Ileum to Cutaneous, Open Approach (ICD-10-PCS; 2018-04-24)
PROC: 0DTN0ZZ Resection of Sigmoid Colon, Open Approach (ICD-10-PCS; principal; 2018-04-24 11:15)
DX: N82.3 Fistula of vagina to large intestine (principal); B37.0 Candidal stomatitis; N17.9 Acute kidney failure, unspecified; J98.11 Atelectasis; D72.829 Elevated white blood cell count, unspecified; E11.9 Type 2 diabetes mellitus without complications; E78.5 Hyperlipidemia, unspecified; F32.9 Major depressive disorder, single episode, unspecified; I10 Essential (primary) hypertension; J44.9 Chronic obstructive pulmonary disease, unspecified; E86.0 Dehydration; K21.9 Gastro-esophageal reflux disease without esophagitis; M79.7 Fibromyalgia; F41.9 Anxiety disorder, unspecified; I83.90 Asymptomatic varicose veins of unspecified lower extremity; M19.90 Unspecified osteoarthritis, unspecified site; R25.1 Tremor, unspecified; G47.33 Obstructive sleep apnea (adult) (pediatric); R05 Cough; M06.9 Rheumatoid arthritis, unspecified; K57.90 Diverticulosis of intestine, part unspecified, without perforation or abscess without bleeding; Z79.899 Other long term (current) drug therapy; Z79.84 Long term (current) use of oral hypoglycemic drugs; Z96.653 Presence of artificial knee joint, bilateral; Z90.710 Acquired absence of both cervix and uterus; Z86.711 Personal history of pulmonary embolism; Z85.828 Personal history of other malignant neoplasm of skin; Z90.79 Acquired absence of other genital organ(s); Z90.722 Acquired absence of ovaries, bilateral; Z88.5 Allergy status to narcotic agent; Z90.49 Acquired absence of other specified parts of digestive tract; Z80.9 Family history of malignant neoplasm, unspecified; Z82.3 Family history of stroke
CPT/HCPCS: 36415; 71046; 80048; 80051; 80053; 81001; 83036; 85025; 85027; 86850; 86900; 86901; 88307; 93005; 94640; 94760

== ENCOUNTER → 2018-05-25 | Outpatient (CLI) | payer MEDICARE, BC ==
--- NOTE | 2018-05-25 16:25 | CT ---
EXAMINATION TYPE: CT abdomen pelvis w con DATE OF EXAM: 05/25/2018 COMPARISON: 01/08/2018 and 12/03/2017 HISTORY: 67 year-old female left upper quadrant and mid abdominal pain. TECHNIQUE: Contiguous axial scanning of the abdomen and pelvis following administration of 80 ml Isov ue 300 IV contrast. Rectal contrast was also administered. Coronal/sagittal Reconstructions performe d. Delayed images not performed as a patient was having difficulty holding the rectal contrast. CT DLP: 1070 mGycm Automated exposure control for dose reduction was used. FINDINGS: Heart normal size without pericardial effusion. Lung bases clear without pleural effusion. Liver enlarged measuring 19.4 cm. Tiny subcentimeter hypodensity peripheral right liver lobe axial im age 17 too small for accurate CT characterization, likely tiny cyst. Portal venous system is patent. No biliary ductal dilatation. Gallbladder, adrenal glands,, left kidney, and pancreas show no gross abnormality. Scattered calcified granulomas within the spleen. Cortical based hypodense lesions within the right kidney measure up to 1.9 cm and are stable from 12/01 suggestive of cysts. Retroaortic left renal vein. No dilated small bowel, free fluid, or free air. Postsurgical changes with resection and reanastomosis of the distal sigmoid. Rectal contrast is prese nt and extends up to the mid descending colonic level. There is a diverting right lower quadrant ileostomy. Incisional scar with some fat stranding along the anterior midline lower abdomen. Possible 3.6 cm wid e by 4.5 cm AP fluid collection along the linea alba, axial image 67 and sagittal image 38. Soft tiss ue nodularity in the subcutaneous fat suggests subcutaneous injections. No mesenteric or retroperitoneal lymphadenopathy. Bladder partially distended. Uterus surgically absent. No adnexal mass is seen. No abnormal fluid col lection pelvis. Bones: Degenerative changes at the hips. Sclerotic focus, probable bone island within the left iliac bone. 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 Possible severe spinal canal stenosis at L3-L4. Possible severe bilate ral neural foraminal stenoses at L4-L5. IMPRESSION: 1. INTERVAL DISTAL SIGMOID RESECTION AND REANASTOMOSIS. RECTAL CONTRAST HAS BEEN ADMINISTERED BUT EXT ENDS ONLY TO THE LOWER DESCENDING COLON LEVEL. NO RESIDUAL ABSCESS SEEN IN THE PELVIS. 2. RIGHT LOWER QUADRANT DIVERTING ILEOSTOMY. 3. POST SURGICAL CHANGES ON THE ANTERIOR LOWER ABDOMINAL MIDLINE. FAT STRANDING COULD BE POSTOPERATIV E INFLAMMATION OR CELLULITIS. 4. IN ADDITION, THERE IS A 3.6 X 4.5 CM FLUID COLLECTION ALONG THE LINEA ALBA HERE THAT COULD REPRESE NT POSTOPERATIVE SEROMA, CHRONIC HEMATOMA, OR ABSCESS.
== END | disposition home or self-care (01) ==
LOC: RADCTMAIN 13:53
PROVIDERS: ATTEND Surgery
DX: K57.92 Diverticulitis of intestine, part unspecified, without perforation or abscess without bleeding (principal); R10.84 Generalized abdominal pain; Z93.2 Ileostomy status; Z98.890 Other specified postprocedural states
CPT/HCPCS: 82565; 84520; 74177; 36415; Q9967

== ENCOUNTER → 2018-06-02 | Outpatient (CLI) | payer MEDICARE, BC ==
[2018-06-02 14:31] LABS: Basophils % (A) 0 %; Eosinophils % (A) 0 %; HCT 36.3 % (34.0-46.0); HGB 12.4 gm/dL (11.4-16.0); Lymphocytes # (A) 1.2 k/uL (1.0-4.8); Lymphocytes % (A) 6 %; MCH 28.1 pg (25.0-35.0); MCHC 34.1 g/dL (31.0-37.0); MCV 82.4 fL (80.0-100.0); Mean Platelet Volume 7.6; Monocytes # (A) 1.1 k/uL (0-1.0); Monocytes % (A) 5 %; Neutrophils # (A) 18.8 k/uL (1.3-7.7); Neutrophils % (A) 88 %; Platelet Count 268 k/uL (150-450); RBC 4.41 m/uL (3.80-5.40); RDW 13.6 % (11.5-15.5); WBC 21.3 k/uL (3.8-10.6)
== END | disposition home or self-care (01) ==
LOC: LABPAT 12:59
PROVIDERS: ATTEND Anesthesiology
DX: Z01.812 Encounter for preprocedural laboratory examination (principal)
CPT/HCPCS: 36415; 85025

== ENCOUNTER 2018-06-05 11:00 | Inpatient (IN) | payer MEDICARE, BC ==
[2018-06-02 08:55] VITALS: BMI 37.6
[~2018-06-05 11:00] MED LIST changes: -ALVIMOPAN 12 MG CAPSULE PO ONE; -DEXAMETHASONE SOD PHOSPHATE 10 MG/ML 1 ML VIAL IV ONE; -MIDAZOLAM 2 MG/2 ML VIAL IV PRN; -ONDANSETRON 4 MG/2 ML VIAL IVP ONE; -SCOPOLAMINE 1.5MG/72HR PATCH TRANSDERM ONE; -fentaNYL (PF) 50 MCG/ML 2 ML AMP IV PRN; -metroNIDAZOLE-NS PMX 500 MG in SALINE 1 100ML.BAG IVPB ONE
--- NOTE | 2018-06-05 11:51 | P.GSHP ---
History of Present Illness H&P Date: 06/05/18 Chief Complaint: Colovaginal fistula Patient will monitor service. Approximate 5-6 weeks ago the patient underwent low anterior resection for diagnosis of colovaginal fistula. At the time there was concern regarding the anastomotic site. For that reason a diverting ileostomy was performed. Patient has done relatively well with her diverting ostomy. She does have some mild skin irritation and has had some issues with leakage from the appliance. Here today for ileostomy reversal. Recent CAT scan with rectal contrast shows wide patency of the anastomosis with no evidence of leak. Patient denies lower abdominal pain. No fevers. She did just recently completed antibiotics and a steroid course for bronchitis. Past Medical History Past Medical History: Asthma, Cancer, COPD, Diabetes Mellitus, Fibromyalgia, GERD/Reflux, Hyperlipidemia, Hypertension, Osteoarthritis (OA), Pulmonary Embolus (PE), Sleep Apnea/CPAP/BIPAP Additional Past Medical History / Comment(s): Diverticulitis; hx migraines, HX Skin CA. HX stress Tremors RT ARM . "CYSTS ON LIVER & KIDNEYS." VARICOSE VEINS; EDEMA lower legs, abscess on intestine Dec 2017, on rx currently for cough History of Any Multi-Drug Resistant Organisms: None Reported Past Surgical History: Appendectomy, Back Surgery, Bowel Resection, Hysterectomy , Orthopedic Surgery Additional Past Surgical History / Comment(s): left and right knee replacements , mayi carpal tunnel, skin ca removal, bilat rotator cuff repair. ioeostomy 2017, back surgery for spinal stenosis, rt cataract Past Anesthesia/Blood Transfusion Reactions: Family History of Problems w/ Anesthesia, Postoperative Nausea & Vomiting (PONV) Additional Past Anesthesia/Blood Transfusion Reaction / Comment(s): SISTER HAS PONV. Smoking Status: Never smoker - Past Family History Father Family Medical History: Cancer Mother Family Medical History: CVA/TIA Sister(s) Family Medical History: Cancer Medications and Allergies Home Medications Medication Instructions Recorded Confirmed Type Albuterol Sulfate [Proair Hfa] 1 - 2 puff INHALATION Q6HR PRN 12/02/17 06/02/18 History DULoxetine HCL [Cymbalta] 60 mg PO HS 12/02/17 06/02/18 History Fluticasone Nasal [place] [Flonase 1 spray EA NOSTRIL DAILY 12/02/17 06/02/18 History Nasal [place]] Gabapentin [Neurontin] 800 mg PO TID 12/02/17 06/02/18 History Losartan Potassium [Cozaar] 100 mg PO HS 12/02/17 06/02/18 History Montelukast [Singulair] 10 mg PO HS 12/02/17 06/02/18 History Omeprazole [PriLOSEC] 40 mg PO DAILY 12/02/17 06/02/18 History Pioglitazone [Actos] 30 mg PO DAILY 12/02/17 06/02/18 History Pyridoxine HCl (Vitamin B6) 100 mg PO DAILY 12/02/17 06/02/18 History [Vitamin B-6] Simvastatin [Zocor] 20 mg PO HS 12/02/17 06/02/18 History Triamterene/Hydrochlorothiazid 1 tab PO DAILY 12/02/17 06/02/18 History [Triamterene-Hctz 37.5-25 mg Tb] Vitamin E (Dl,Tocopheryl Acet) 400 unit PO DAILY 12/02/17 06/02/18 History [Vitamin E] Acetaminophen [Tylenol Extra 1,000 mg PO Q6H PRN 03/06/18 06/02/18 History Strength] Calcium Carbonate/Vitamin D3 1 tab PO BID 03/06/18 06/02/18 History [Calcium 600-Vit D3 400 Caplet] Diphenoxylate HCl/Atropine 1 tab PO Q48H PRN 03/06/18 06/02/18 History [Lomotil 2.5-0.025 mg Tablet] Metoprolol Succinate [Toprol Xl] 50 mg PO DAILY 03/06/18 06/02/18 History Umeclidinium Brm/Vilanterol Tr 1 puff INHALATION DAILY 03/06/18 06/02/18 History [Anoro Ellipta 62.5-25 Mcg INH] Erythromycin Base [Erythromycin] 500 mg PO DAILY 06/02/18 06/02/18 History methylPREDNISolone [Medrol Dose 4 mg PO DIRECTED 06/02/18 06/02/18 History Pack] Allergies Allergy/AdvReac Type Severity Reaction Status Date / Time codeine Allergy Itching, Verified 06/02/18 08:39 NAUSEA iodine Allergy mouth went Verified 06/02/18 08:39 numb meperidine [From Demerol] Allergy Nausea & Verified 06/02/18 08:39 Vomiting wool Allergy Itching, Verified 06/02/18 08:39 RASH Surgical - Exam Physical exam: General: Well-developed, well-nourished HEENT: Normocephalic, sclerae nonicteric Abdomen: Nontender, nondistended, right mid abdominal ileostomy Extremities: No edema Neuro: Alert and oriented Assessment and Plan (1) Colovaginal fistula Narrative/Plan: Will proceed with reversal of the patient's loop ileostomy through the ostomy site itself. Risks of bleeding, infection, leak, abscess, stenosis, hernia, and anesthesia-related complications were reviewed. She understands and wishes to proceed. Current Visit: No Status: Acute Code(s): N82.4 - OTHER FEMALE INTESTINAL- GENITAL TRACT FISTULAE SNOMED Code(s): 392982027
[2018-06-05] MEDS ORDERED: SCOPOLAMINE 1.5MG/72HR PATCH TRANSDERM ONE (12:13)
[2018-06-05] MEDS ORDERED: ONDANSETRON 4 MG/2 ML VIAL IVP ONE (12:13)
[2018-06-05] MEDS ORDERED: MIDAZOLAM 2 MG/2 ML VIAL IV PRN (12:13)
[2018-06-05] MEDS ORDERED: LIDOCAINE 1% 20 ML VIAL (10MG/ML) FOR IV START INTRADERMA PRN (12:13)
[2018-06-05] MEDS ORDERED: DEXAMETHASONE SOD PHOSPHATE 10 MG/ML 1 ML VIAL IV ONE (12:13)
[2018-06-05] MEDS ORDERED: ALVIMOPAN 12 MG CAPSULE PO ONE (12:32)
[2018-06-05] MEDS: LACTATED RINGERS 1,000 ML IV SCH (12:54)
[2018-06-05] MEDS ORDERED: LIDOCAINE 1% INJ 10MG/ML (20 ML MDV) ONE (13:09)
[2018-06-05] MEDS ORDERED: fentaNYL (PF) 50 MCG/ML 2 ML AMP ONE (13:09)
[2018-06-05] MEDS ORDERED: NEOSTIGMINE 1 MG/ML 10 ML VIAL ONE (13:09)
[2018-06-05] MEDS ORDERED: MIDAZOLAM 2 MG/2 ML VIAL ONE (13:09)
[2018-06-05] MEDS ORDERED: GLYCOPYRROLATE 0.2 MG/ML 2 ML VIAL ONE (13:09)
[2018-06-05] MEDS ORDERED: DEXAMETHASONE SOD PHOS (MDV) 100 MG/10 ML VIAL ONE (13:09)
[2018-06-05] MEDS ORDERED: PROPOFOL 10 MG/ML 20 ML VIAL IV ONE (13:09)
[2018-06-05] MEDS ORDERED: ROCURONIUM BROMIDE 10 MG/ML 10 ML VIAL IV ONE (13:09)
[2018-06-05] MEDS ORDERED: SUCCINYLCHOLINE CHLORIDE 100 MG/5 ML SYR IV ONE (13:09)
[2018-06-05] MEDS ORDERED: LACTATED RINGERS 1,000 ML IV ONE (14:43)
[2018-06-05] MEDS ORDERED: ONDANSETRON 4 MG/2 ML VIAL IVP PRN (15:07)
--- NOTE | 2018-06-05 15:16 | P.OP ---
Date of Procedure: 06/05/18 Procedure(s) Performed: PREOPERATIVE DIAGNOSIS: Colovaginal fistula POSTOPERATIVE DIAGNOSIS: Same PROCEDURE: Ileostomy reversal SURGEON: Mary Alice EBL: Minimal ANESTHESIA: General COMPLICATIONS: None OPERATIVE PROCEDURE: Patient was placed under general anesthesia in the supine position. The abdomen was prepped and draped in usual sterile fashion. The ileostomy had been closed using a 0 Vicryl pursestring suture. An elliptical incision was made around the ostomy. Dissection through the subcutaneous tissues took place using blunt dissection and sharp dissection and electrocautery. Entrance into the perineal cavity occurred without difficulty. The bowel loops were freely dissected. The ostomy itself was excised using a linear 75 stapler on both the proximal and distal limb of the ileostomy. The mesentery was divided using the LigaSure device. Following that a [id number]-folp anastomosis took place. The antimesenteric portion of the staple line was excised using cautery. The linear 75 stapler was fired along the antimesenteric border. The remaining defect was closed transversely using a TX 60 stapler. The TX 60 stapler line was imbricated using 3-0 GI silk Lambert sutures. A 3-0 GI silk crotch stitch was also placed. The area was irrigated. No bleeding was seen. The fascia was then reapproximated in a vertical fashion using xcyhel-ca-kdouq 0 Ethibond sutures. The subcutaneous tissues were closed using 3-0 Vicryl sutures. The skin was closed using xuan. Sterile dressing was applied. DISPOSITION: Stable to recovery room
[2018-06-05] MEDS: HYDROmorphone 0.5 MG/0.5 ML SYRINGE IVP PRN ×4 (15:21→20:58)
[2018-06-05] MEDS ORDERED: diphenhydrAMINE 50 MG/ML 1 ML VIAL IVP ONE (15:32)
[2018-06-05] MEDS: HYDROmorphone 1 MG/ML 1 ML SYRINGE IVP ONE ×2 (15:40→15:50)
[2018-06-05] MEDS ORDERED: fentaNYL (PF) 50 MCG/ML 2 ML AMP IV ONE (16:05)
[2018-06-05] MEDS: HEPARIN SODIUM,PORCINE 5,000 UNIT/ML 1 ML VIAL SQ SCH (17:43)
[2018-06-05] MEDS: D5-0.45% NACL WITH KCL 20MEQ/L 1,000 ML IV SCH (20:49)
[2018-06-05] MEDS: CALCIUM CARB-VIT D 500MG-200UN 1 EACH TAB PO SCH (20:49)
[2018-06-05] MEDS: DULoxetine HCL 60 MG CAPSULE.DR PO SCH (20:49)
[2018-06-05] MEDS: ATORVASTATIN 10 MG TAB PO SCH (20:49)
[2018-06-05] MEDS: MONTELUKAST 10 MG TAB PO SCH (20:50)
[2018-06-05] MEDS: LOSARTAN 50 MG TAB PO SCH (20:50)
[2018-06-05] MEDS: FAMOTIDINE 20 MG/2 ML VIAL IV SCH (21:12)
[2018-06-05] MEDS: GABAPENTIN 400 MG CAP PO SCH (21:17)
[2018-06-06] MEDS: HEPARIN SODIUM,PORCINE 5,000 UNIT/ML 1 ML VIAL SQ SCH ×3 (00:10→16:26)
[2018-06-06] MEDS: HYDROmorphone 0.5 MG/0.5 ML SYRINGE IVP PRN ×3 (02:53→16:27)
[2018-06-06] MEDS: D5-0.45% NACL WITH KCL 20MEQ/L 1,000 ML IV SCH ×4 (03:53→22:33)
[2018-06-06 06:54] LABS: Basophils % (A) 0 %; Eosinophils % (A) 0 %; HCT 36.2 % (34.0-46.0); HGB 11.7 gm/dL (11.4-16.0); Lymphocytes # (A) 0.9 k/uL (1.0-4.8); Lymphocytes % (A) 4 %; MCH 27.9 pg (25.0-35.0); MCHC 32.3 g/dL (31.0-37.0); MCV 86.5 fL (80.0-100.0); Mean Platelet Volume 7.3; Monocytes # (A) 1.1 k/uL (0-1.0); Monocytes % (A) 4 %; Neutrophils # (A) 22.4 k/uL (1.3-7.7); Neutrophils % (A) 91 %; Platelet Count 231 k/uL (150-450); RBC 4.19 m/uL (3.80-5.40); RDW 13.7 % (11.5-15.5); WBC 24.6 k/uL (3.8-10.6)
[2018-06-06 07:09] LABS: Potassium 4.7 mmol/L (3.5-5.1)
[2018-06-06] MEDS: CALCIUM CARB-VIT D 500MG-200UN 1 EACH TAB PO SCH ×2 (08:05→22:08)
[2018-06-06] MEDS: ALVIMOPAN 12 MG CAPSULE PO SCH ×2 (08:05→22:08)
[2018-06-06] MEDS: FAMOTIDINE 20 MG/2 ML VIAL IV SCH (08:05)
[2018-06-06] MEDS: METOPROLOL SUCCINATE (ER) 50 MG TAB.ER.24H PO SCH (08:05)
[2018-06-06] MEDS: PANTOPRAZOLE 40 MG TABLET PO SCH (08:05)
[2018-06-06] MEDS: TRIAMTERENE-HCTZ 37.5-25MG 1 EACH TAB PO SCH (08:06)
[2018-06-06] MEDS: GABAPENTIN 400 MG CAP PO SCH ×3 (08:06→22:09)
[2018-06-06] MEDS: LACTATED RINGERS 1,000 ML IV SCH (08:11)
[2018-06-06] MEDS: FLUTICASONE 50MCG/SPRAY NASAL 16GM EA NOSTRIL SCH (10:29)
[2018-06-06] MEDS: ALBUTEROL NEBULIZED 2.5 MG/3 ML INHALATION PRN ×2 (10:30→19:16)
--- NOTE | 2018-06-06 11:12 | P.PN ---
Progress Note - Text Progress Note Date: 06/06/18 The patient's resting comfortably in her bed. She has minimal complaints of pain. She is tolerating clear liquids. On exam her vital signs are stable. Her abdomen soft. Patient will continue clear liquid diet.
--- NOTE | 2018-06-06 12:25 | P.CONS ---
History of Present Illness - Reason for Consult Consult date: 06/06/18 Medical management Requesting physician: Yves Wheat - History of Present Illness Ansley Hernandez is a 67-year-old female who underwent low anterior resection for diagnosis of colovaginal fistula 6 weeks ago. At the time there was concern regarding the anastomotic site. For that reason a diverting ileostomy was performed. Patient has done relatively well with her diverting ostomy. She does have some mild skin irritation and has had some issues with leakage from the appliance. Here today for ileostomy reversal. Recent CAT scan with rectal contrast shows wide patency of the anastomosis with no evidence of leak. Patient was seen in our office 4 days ago due to cough and evidence of bronchitis she received a course of oral antibiotic and oral steroids her white blood count was elevated due to the use of for steroids. Patient was seen and examined, there is no fever or chills no headache or dizziness, no chest pain or shortness of breath no cough no nausea or vomiting no abdominal pain no diarrhea no burning with urination no frequency or urgency and no hematuria. Past Medical History Past Medical History: Asthma, Cancer, COPD, Diabetes Mellitus, Fibromyalgia, GERD/Reflux, Hyperlipidemia, Hypertension, Osteoarthritis (OA), Pulmonary Embolus (PE), Sleep Apnea/CPAP/BIPAP Additional Past Medical History / Comment(s): Diverticulitis; hx migraines, HX Skin CA. HX stress Tremors RT ARM . "CYSTS ON LIVER & KIDNEYS." VARICOSE VEINS; EDEMA lower legs, abscess on intestine Dec 2017, on rx currently for cough History of Any Multi-Drug Resistant Organisms: None Reported Past Surgical History: Appendectomy, Back Surgery, Bowel Resection, Hysterectomy , Orthopedic Surgery Additional Past Surgical History / Comment(s): left and right knee replacements , mayi carpal tunnel, skin ca removal, bilat rotator cuff repair. ioeostomy 2017, back surgery for spinal stenosis, rt cataract Past Anesthesia/Blood Transfusion Reactions: Family History of Problems w/ Anesthesia, Postoperative Nausea & Vomiting (PONV) Additional Past Anesthesia/Blood Transfusion Reaction / Comm: SISTER HAS PONV. Past Psychological History: Anxiety, Depression Smoking Status: Never smoker Past Alcohol Use History: Occasional Past Drug Use History: None Reported - Past Family History Father Family Medical History: Cancer Mother Family Medical History: CVA/TIA Sister(s) Family Medical History: Cancer Medications and Allergies Home Medications Medication Instructions Recorded Confirmed Type Albuterol Sulfate [Proair Hfa] 1 - 2 puff INHALATION RT-Q6H PRN 12/02/17 History DULoxetine HCL [Cymbalta] 60 mg PO HS 12/02/17 06/05/18 History Fluticasone Nasal [place] [Flonase 1 spray EA NOSTRIL DAILY 12/02/17 06/05/18 History Nasal [place]] Gabapentin [Neurontin] 800 mg PO TID 12/02/17 06/05/18 History Losartan Potassium [Cozaar] 100 mg PO HS 12/02/17 06/05/18 History Montelukast [Singulair] 10 mg PO HS 12/02/17 06/05/18 History Omeprazole [PriLOSEC] 40 mg PO DAILY 12/02/17 06/05/18 History Pioglitazone [Actos] 30 mg PO DAILY 12/02/17 06/05/18 History Pyridoxine HCl (Vitamin B6) 100 mg PO DAILY 12/02/17 06/05/18 History [Vitamin B-6] Simvastatin [Zocor] 20 mg PO HS 12/02/17 06/05/18 History Triamterene/Hydrochlorothiazid 1 tab PO DAILY 12/02/17 06/05/18 History [Triamterene-Hctz 37.5-25 mg Tb] Vitamin E (Dl,Tocopheryl Acet) 400 unit PO DAILY 12/02/17 06/05/18 History [Vitamin E] Acetaminophen [Tylenol Extra 1,000 mg PO Q6H PRN 03/06/18 06/05/18 History Strength] Calcium Carbonate/Vitamin D3 1 tab PO BID 03/06/18 06/05/18 History [Calcium 600-Vit D3 400 Caplet] Diphenoxylate HCl/Atropine 1 tab PO Q48H PRN 03/06/18 06/05/18 History [Lomotil 2.5-0.025 mg Tablet] Metoprolol Succinate [Toprol Xl] 50 mg PO DAILY 03/06/18 06/05/18 History Umeclidinium Brm/Vilanterol Tr 1 puff INHALATION RT-DAILY 03/06/18 06/05/18 History [Anoro Ellipta 62.5-25 Mcg INH] Erythromycin Base [Erythromycin] 500 mg PO DAILY 06/02/18 06/05/18 History methylPREDNISolone [Medrol Dose See Taper PO DIRECTED 06/02/18 06/05/18 History Pack] Hydrocodone/Acetaminophen [Sims 1 - 2 each PO Q4HR PRN #15 tab 06/05/18 Rx 5-325] Allergies Allergy/AdvReac Type Severity Reaction Status Date / Time codeine Allergy Itching, Verified 06/05/18 15:35 NAUSEA iodine Allergy mouth went Verified 06/05/18 15:35 numb meperidine [From Demerol] Allergy Nausea & Verified 06/05/18 15:35 Vomiting wool Allergy Itching, Verified 06/05/18 15:35 RASH Physical Exam Vitals: Vital Signs Temp Pulse Pulse Resp BP Pulse Ox 06/06/18 10:51 60 06/06/18 10:36 62 06/06/18 07:05 98.1 F 61 14 112/59 99 06/06/18 01:11 97.5 F L 64 16 157/69 98 06/05/18 20:52 98 06/05/18 18:45 80 130/81 06/05/18 18:30 61 123/82 06/05/18 18:15 66 115/71 06/05/18 18:00 65 130/84 06/05/18 17:45 58 L 150/95 06/05/18 17:30 59 L 147/73 06/05/18 16:15 60 12 150/61 98 06/05/18 16:00 58 L 12 156/62 98 06/05/18 15:45 61 12 155/66 98 06/05/18 15:30 61 14 157/59 98 06/05/18 15:15 70 13 150/66 96 06/05/18 15:00 98.1 F 86 11 L 156/68 92 L 06/05/18 12:28 98.9 F 71 16 159/68 99 Intake and Output 06/05/18 06/06/18 06/06/18 22:59 06:59 14:59 Intake Total 750 Output Total 100 925 Balance 650 -925 Intake: IV 400 Intake, IV Titration 350 Amount D5-0.45% NaCl with KCl 250 20Meq/l 1,000 ml @ 125 mls/hr IV .Q8H [facility] Rx#: [id number] Lactated Ringers 1,000 ml 100 @ 20 mls/hr IV .Q24H [facility] Rx#:[id number] Output: Urine 100 925 Other: Voiding Method Indwelling Catheter Indwelling Catheter Indwelling Catheter Weight 97.976 kg In general patient is alert and oriented 3 in no apparent distress HEENT head normocephalic and atraumatic no jaundice Neck is supple no JVD no goiter no lymphadenopathy Chest exam reveals a few scattered rhonchi no wheezing Cardiac exam reveals regular heart sounds S1 and S2 no gallops no murmurs Abdomen is soft nontender no organomegaly with normal bowel sounds Extremity exam reveals no edema no cyanosis or clubbing Results CBC & Chem 7: 06/06/18 06:43 06/06/18 06:43 Labs: Abnormal Lab Results - Last 24 Hours (Table) 06/06/18 06/06/18 Range/Units 06:43 06:43 WBC 24.6 H (3.8-10.6) k/uL Neutrophils # 22.4 H (1.3-7.7) k/uL Lymphocytes # 0.9 L (1.0-4.8) k/uL Monocytes # 1.1 H (0-1.0) k/uL Sodium 134 L (137-145) mmol/L Carbon Dioxide 17 L (22-30) mmol/L BUN 29 H (7-17) mg/dL Glucose 130 H (74-99) mg/dL Assessment and Plan Plan: #1 status post reversal of low ileostomy #2 recent acute bronchitis with bronchospasm treated with outpatient oral antibiotic and steroids #3 leukocytosis likely related to the use of steroids, white blood count was elevated prior to surgery will monitor progress #4 underlying history of hypertension blood pressure medication resume #5 underlying history of asthma maintained on Singulair and albuterol medication resume #6 underlying history of hyperlipidemia #7 underlying history of diabetes mellitus maintained on Actos #8 underlying history of peripheral neuropathy At this time medication and labs were reviewed, please see orders For DVT prophylaxis patient is on subcu heparin for GI prophylaxis she is receiving pantoprazole Continue with current management will follow during this hospitalization
[2018-06-06] MEDS: ATORVASTATIN 10 MG TAB PO SCH (22:08)
[2018-06-06] MEDS: LOSARTAN 50 MG TAB PO SCH (22:09)
[2018-06-06] MEDS: MONTELUKAST 10 MG TAB PO SCH (22:09)
[2018-06-06] MEDS: DULoxetine HCL 60 MG CAPSULE.DR PO SCH (22:09)
[2018-06-07] MEDS: HEPARIN SODIUM,PORCINE 5,000 UNIT/ML 1 ML VIAL SQ SCH ×3 (00:01→15:20)
[2018-06-07] MEDS: HYDROmorphone 0.5 MG/0.5 ML SYRINGE IVP PRN (05:02)
[2018-06-07 07:22] LABS: Basophils % (A) 0 %; Eosinophils % (A) 0 %; HCT 31.6 % (34.0-46.0); HGB 10.3 gm/dL (11.4-16.0); Lymphocytes # (A) 1.3 k/uL (1.0-4.8); Lymphocytes % (A) 13 %; MCH 27.2 pg (25.0-35.0); MCHC 32.5 g/dL (31.0-37.0); MCV 83.7 fL (80.0-100.0); Mean Platelet Volume 7.7; Monocytes # (A) 0.6 k/uL (0-1.0); Monocytes % (A) 6 %; Neutrophils % (A) 79 %; Platelet Count 160 k/uL (150-450); RBC 3.77 m/uL (3.80-5.40); WBC 10.1 k/uL (3.8-10.6)
[2018-06-07 07:23] LABS: Albumin 2.9 g/dL (3.5-5.0); Calcium 8.8 mg/dL (8.4-10.2); Total Bilirubin 0.2 mg/dL (0.2-1.3); Total Protein 4.9 g/dL (6.3-8.2)
[2018-06-07] MEDS: METOPROLOL SUCCINATE (ER) 50 MG TAB.ER.24H PO SCH (07:57)
[2018-06-07] MEDS: GABAPENTIN 400 MG CAP PO SCH ×3 (07:57→21:08)
[2018-06-07] MEDS: FLUTICASONE 50MCG/SPRAY NASAL 16GM EA NOSTRIL SCH (07:57)
[2018-06-07] MEDS: ALVIMOPAN 12 MG CAPSULE PO SCH ×2 (07:57→21:08)
[2018-06-07] MEDS: TRIAMTERENE-HCTZ 37.5-25MG 1 EACH TAB PO SCH (07:57)
[2018-06-07] MEDS: CALCIUM CARB-VIT D 500MG-200UN 1 EACH TAB PO SCH ×2 (07:57→21:08)
[2018-06-07] MEDS: D5-0.45% NACL WITH KCL 20MEQ/L 1,000 ML IV SCH ×2 (07:58→14:30)
[2018-06-07] MEDS: PANTOPRAZOLE 40 MG TABLET PO SCH (07:58)
[2018-06-07] MEDS: ALBUTEROL NEBULIZED 2.5 MG/3 ML INHALATION PRN ×2 (08:24→18:53)
--- NOTE | 2018-06-07 09:23 | P.PN ---
Progress Note - Text Progress Note Date: 06/07/18 The patient is resting comfortably in bed. She is requesting more to eat. Her pain is minimal. On exam her vital signs are stable. Her abdomen soft. Incision site is clean dry and intact. Status post reversal of ileostomy. Patient will have her diet advanced. She will most likely be discharged home the next 24-48 hours.
[2018-06-07] MEDS: LACTATED RINGERS 1,000 ML IV SCH (12:17)
--- NOTE | 2018-06-07 16:14 | P.PN ---
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 At the time there was concern regarding the anastomotic site. For that reason a diverting ileostomy was performed. Patient has done relatively well with her diverting ostomy. She does have some mild skin irritation and has had some issues with leakage from the appliance. Here today for ileostomy reversal. Recent CAT scan with rectal contrast shows wide patency of the anastomosis with no evidence of leak. Patient was seen in our office 4 days ago due to cough and evidence of bronchitis she received a course of oral antibiotic and oral steroids her white blood count was elevated due to the use of for steroids. On 06/07/2018 patient is alert and oriented 3 in no apparent distress, complaining of diarrhea otherwise no complaints there is no fever or chills no headache or dizziness no chest pain no shortness of breath no cough no nausea or vomiting no abdominal pain and no urinary symptoms Objective - Vital Signs Vital signs: Vital Signs Temp 98.7 F 06/07/18 14:48 Pulse 93 06/07/18 14:48 Resp 16 06/07/18 14:48 BP 133/81 06/07/18 14:48 Pulse Ox 96 06/07/18 14:48 Intake & Output 06/06/18 06/07/18 06/07/18 18:59 06:59 18:59 Intake Total 1600 1000 Output Total 400 Balance -400 1600 1000 Intake: Intake, IV Titration 1000 1000 Amount D5-0.45% NaCl with KCl 1000 1000 20Meq/l 1,000 ml @ 125 mls/hr IV .Q8H [facility] Rx#: [id number] Oral 600 Output: Urine 400 Other: Voiding Method Indwelling Catheter Toilet # Voids 1 1 3 # Bowel Movements 2 - Exam In general patient is alert and oriented 3 in no apparent distress HEENT head normocephalic and atraumatic no jaundice Neck is supple no JVD no goiter no lymphadenopathy Chest exam reveals a few scattered rhonchi no wheezing Cardiac exam reveals regular heart sounds S1 and S2 no gallops no murmurs Abdomen is soft nontender no organomegaly with normal bowel sounds Extremity exam reveals no edema no cyanosis or clubbing - Labs CBC & Chem 7: 06/07/18 06:34 06/07/18 06:34 Labs: Abnormal Lab Results - Last 24 Hours (Table) 06/07/18 06/07/18 Range/Units 06:34 06:34 RBC 3.77 L (3.80-5.40) m/uL Hgb 10.3 L (11.4-16.0) gm/dL Hct 31.6 L (34.0-46.0) % Neutrophils # 8.0 H (1.3-7.7) k/uL Glucose 107 H (74-99) mg/dL Total Protein 4.9 L (6.3-8.2) g/dL Albumin 2.9 L (3.5-5.0) g/dL Assessment and Plan Plan: #1 status post reversal of low ileostomy #2 recent acute bronchitis with bronchospasm treated with outpatient oral antibiotic and steroids #3 leukocytosis likely related to the use of steroids, white blood count was elevated prior to surgery will monitor progress, white blood count today is down to 10,000 #4 underlying history of hypertension blood pressure medication resume #5 underlying history of asthma maintained on Singulair and albuterol medication resume #6 underlying history of hyperlipidemia #7 underlying history of diabetes mellitus maintained on Actos #8 underlying history of peripheral neuropathy At this time medication and labs were reviewed, please see orders For DVT prophylaxis patient is on subcu heparin for GI prophylaxis she is receiving pantoprazole Continue with current management will follow during this hospitalization
[2018-06-07] MEDS: ATORVASTATIN 10 MG TAB PO SCH (21:08)
[2018-06-07] MEDS: MONTELUKAST 10 MG TAB PO SCH (21:08)
[2018-06-07] MEDS: ACETAMINOPHEN TAB 325 MG TAB PO PRN (21:08)
[2018-06-07] MEDS: DULoxetine HCL 60 MG CAPSULE.DR PO SCH (21:08)
[2018-06-07] MEDS: LOSARTAN 50 MG TAB PO SCH (21:08)
[2018-06-08] MEDS: D5-0.45% NACL WITH KCL 20MEQ/L 1,000 ML IV SCH ×4 (00:41→23:08)
[2018-06-08] MEDS: HEPARIN SODIUM,PORCINE 5,000 UNIT/ML 1 ML VIAL SQ SCH ×4 (00:54→23:18)
[2018-06-08] MEDS: ALBUTEROL NEBULIZED 2.5 MG/3 ML INHALATION PRN ×3 (07:24→20:34)
[2018-06-08 07:43] LABS: Anion Gap 8 mmol/L; Blood Urea Nitrogen 11 mg/dL (7-17); Calcium 8.8 mg/dL (8.4-10.2); Carbon Dioxide 29 mmol/L (22-30); Chloride 101 mmol/L (98-107); Glucose 110 mg/dL (74-99); Potassium 4.2 mmol/L (3.5-5.1); Sodium 138 mmol/L (137-145)
[2018-06-08 07:48] LABS: Basophils % (A) 0 %; Eosinophils % (A) 0 %; HCT 31.5 % (34.0-46.0); HGB 10.3 gm/dL (11.4-16.0); Lymphocytes % (A) 10 %; MCH 27.4 pg (25.0-35.0); MCHC 32.7 g/dL (31.0-37.0); MCV 83.7 fL (80.0-100.0); Mean Platelet Volume 7.3; Monocytes # (A) 0.7 k/uL (0-1.0); Monocytes % (A) 7 %; Neutrophils # (A) 7.6 k/uL (1.3-7.7); Neutrophils % (A) 82 %; Platelet Count 164 k/uL (150-450); RBC 3.76 m/uL (3.80-5.40); RDW 14.1 % (11.5-15.5); WBC 9.4 k/uL (3.8-10.6)
[2018-06-08] MEDS: ALVIMOPAN 12 MG CAPSULE PO SCH ×2 (08:25→21:34)
[2018-06-08] MEDS: GABAPENTIN 400 MG CAP PO SCH ×3 (08:25→21:35)
[2018-06-08] MEDS: FLUTICASONE 50MCG/SPRAY NASAL 16GM EA NOSTRIL SCH (08:25)
[2018-06-08] MEDS: METOPROLOL SUCCINATE (ER) 50 MG TAB.ER.24H PO SCH (08:26)
[2018-06-08] MEDS: CALCIUM CARB-VIT D 500MG-200UN 1 EACH TAB PO SCH ×2 (08:26→21:34)
[2018-06-08] MEDS: TRIAMTERENE-HCTZ 37.5-25MG 1 EACH TAB PO SCH (08:26)
[2018-06-08] MEDS: PANTOPRAZOLE 40 MG TABLET PO SCH (08:27)
--- NOTE | 2018-06-08 10:49 | P.PN ---
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 At the time there was concern regarding the anastomotic site. For that reason a diverting ileostomy was performed. Patient has done relatively well with her diverting ostomy. She does have some mild skin irritation and has had some issues with leakage from the appliance. Here today for ileostomy reversal. Recent CAT scan with rectal contrast shows wide patency of the anastomosis with no evidence of leak. Patient was seen in our office 4 days ago due to cough and evidence of bronchitis she received a course of oral antibiotic and oral steroids her white blood count was elevated due to the use of for steroids. On 06/07/2018 patient is alert and oriented 3 in no apparent distress, complaining of diarrhea otherwise no complaints there is no fever or chills no headache or dizziness no chest pain no shortness of breath no cough no nausea or vomiting no abdominal pain and no urinary symptoms 06/08/2018 patient had a temp of 101.4 last night. Also reports having chills. Still complain of some residual cough and had recently been treated with bronchitis outpatient. White count is normal at 9.4. She denies any chest pain or shortness of breath. She reports having regular stool yesterday. Denies any burning with urination. Currently on a full liquid diet Objective - Vital Signs Vital signs: Vital Signs Temp 98.5 F 06/08/18 07:00 Pulse 88 06/08/18 07:33 Resp 16 06/08/18 07:34 BP 140/64 06/08/18 07:00 Pulse Ox 94 L 06/08/18 07:24 Intake & Output 06/07/18 06/08/18 06/08/18 18:59 06:59 18:59 Intake Total 1000 1050 Balance 1000 1050 Intake: Intake, IV Titration 1000 Amount D5-0.45% NaCl with KCl 1000 20Meq/l 1,000 ml @ 125 mls/hr IV .Q8H [facility] Rx#: [id number] Oral 1050 Other: Voiding Method Toilet Toilet # Voids 3 3 # Bowel Movements 1 - Exam Head normocephalic Neck supple Lungs diminished at bases bilaterally Heart regular rate and rhythm S1-S2, no rub or gallop Abdomen is soft nontender nondistended positive bowel sounds no hepatosplenomegaly. Dressing clean dry and intact Extremities no edema Neuro alert and orientated to 3 - Labs CBC & Chem 7: 06/08/18 06:59 06/08/18 06:59 Labs: Abnormal Lab Results - Last 24 Hours (Table) 06/08/18 06/08/18 Range/Units 06:59 06:59 RBC 3.76 L (3.80-5.40) m/uL Hgb 10.3 L (11.4-16.0) gm/dL Hct 31.5 L (34.0-46.0) % Glucose 110 H (74-99) mg/dL Assessment and Plan Assessment: #1 status post reversal of ileostomy reversal for colovaginal fistula #2 recent acute bronchitis with bronchospasm treated with outpatient oral antibiotic and steroids #3 leukocytosis likely related to the use of steroids, white blood count was elevated prior to surgery will monitor progress, white count has normalized #4 underlying history of hypertension blood pressure medication resume #5 underlying history of asthma maintained on Singulair and albuterol medication resume #6 underlying history of hyperlipidemia #7 underlying history of diabetes mellitus maintained on Actos #8 underlying history of peripheral neuropathy #9 fever with chills. Temp of 101.4 last night. Check chest x-ray, blood culture and urinalysis. For DVT prophylaxis patient is on subcu heparin for GI prophylaxis she is receiving pantoprazole I performed an examination of the patient and discussed their management with the physician Latin American Studies Director. I have reviewed the Physician Latin American Studies Director's notes and agree with the documented findings and plan of care
--- NOTE | 2018-06-08 13:43 | P.PN ---
Subjective Progress Note Date: 06/08/18 Martin 67-year-old female sitting up in bed. Patient states she's been up ambulating in the hallway. Patient had a temp last evening of 101.4. Temp this morning is 98 stated that she's tolerating the full liquid diet denies any nausea vomiting. States had a bowel movement yesterday. Dressing to surgical site dry. Abdominal scar well-healed no redness to the abdominal wall Patient is postop June 05 ileostomy reversal Objective - Vital Signs Vital signs: Vital Signs Temp 98.5 F 06/08/18 07:00 Pulse 88 06/08/18 07:33 Resp 16 06/08/18 07:34 BP 140/64 06/08/18 07:00 Pulse Ox 94 L 06/08/18 07:24 Intake & Output 06/07/18 06/08/18 06/08/18 18:59 06:59 18:59 Intake Total 1000 1050 Balance 1000 1050 Intake: Intake, IV Titration 1000 Amount D5-0.45% NaCl with KCl 1000 20Meq/l 1,000 ml @ 125 mls/hr IV .Q8H [facility] Rx#: [id number] Oral 1050 Other: Voiding Method Toilet Toilet # Voids 3 3 # Bowel Movements 1 - Exam Physical exam Martin 67-year-old female resting in bed denies any dizziness lightheadedness shortness of breath or chest pain Lungs clear on room air Heart S1-S2 audible regular abdomen soft surgical dressing dry well-healed surgical scar states tolerating a diet no nausea no vomiting had a bowel movement yesterday mild surgical discomfort not distended Extremities no edema noted - Labs CBC & Chem 7: 06/08/18 06:59 06/08/18 06:59 Labs: Abnormal Lab Results - Last 24 Hours (Table) 06/08/18 06/08/18 Range/Units 06:59 06:59 RBC 3.76 L (3.80-5.40) m/uL Hgb 10.3 L (11.4-16.0) gm/dL Hct 31.5 L (34.0-46.0) % Glucose 110 H (74-99) mg/dL Assessment and Plan Assessment: Impression A recent 6 week prior low anterior resection for colovaginal fistula with a diverging ileostomy performed Mild intermediate Asthma Ileostomy reversal done on June 05 Recent treatment for acute bronchitis with bronchospasm outpatient antibiotics and steroids Leukocytosis likely elevated due to the use of steroids Underlying hypertension Hyperlipidemia Type 2 diabetes non-insulin History of peripheral neuropathy Postoperative episode febrile with chills Plan Continue postop surgical care Encourage ambulation Encourage use of incentive spirometer Pain control Follow-up on blood and urine culture Progress note dictated for Dr. jordan running on behalf of Dr. Wheat The above impression and plan of care have been discussed and directed by signing physician. Ana Francisco nurse practitioner acting as scribe for signing physician.
--- NOTE | 2018-06-08 14:12 | XR ---
EXAMINATION TYPE: XR chest 2V DATE OF EXAM: 06/08/2018 COMPARISON: 04/30/2018 HISTORY: 67-year-old female postop fever TECHNIQUE: Frontal and lateral views FINDINGS: Heart upper limits of normal in size. Mild elongation thoracic aorta. Continued band of atelectasis a t the right midlung. Some increasing opacity at the left base has a somewhat strandy appearance. Othe rwise, no consolidation or pleural effusion seen. IMPRESSION: Continued band of atelectasis at the right midlung. Increasing density at the left base has a somewha t strandy appearance favored to represent atelectasis rather than early infiltrate. Follow-up can be considered.
[2018-06-08 14:37] LABS: Appearance,Urine Clear (Clear); Bilirubin,Urine Negative (Negative); Blood,Urine Negative (Negative); Color,Urine Light Yellow; Glucose,Urine (UA) Negative (Negative); Ketones,Urine Negative (Negative); Leukocyte Esterase,Urine Negative (Negative); Nitrite,Urine Negative (Negative); Protein,Urine Negative (Negative); Specific Gravity,Urine 1.005 (1.001-1.035); Urobilinogen,Urine <2.0 mg/dL (<2.0)
[2018-06-08] MEDS: ACETAMINOPHEN TAB 325 MG TAB PO PRN ×2 (15:12→21:35)
[2018-06-08] MEDS: LACTATED RINGERS 1,000 ML IV SCH (15:16)
[2018-06-08] MEDS: DULoxetine HCL 60 MG CAPSULE.DR PO SCH (21:34)
[2018-06-08] MEDS: LOSARTAN 50 MG TAB PO SCH (21:34)
[2018-06-08] MEDS: ATORVASTATIN 10 MG TAB PO SCH (21:34)
[2018-06-08] MEDS: MONTELUKAST 10 MG TAB PO SCH (21:35)
[2018-06-09 06:51] VITALS: BP 145/78; RESP 14; TEMP 98.9
[2018-06-09] MEDS: D5-0.45% NACL WITH KCL 20MEQ/L 1,000 ML IV SCH (07:35)
[2018-06-09] MEDS: ALBUTEROL NEBULIZED 2.5 MG/3 ML INHALATION PRN (07:37)
[2018-06-09 07:55] VITALS: PULSE 88
[2018-06-09 08:02] LABS: Basophils % (A) 0 %; Eosinophils # (A) 0.1 k/uL (0-0.7); Eosinophils % (A) 1 %; HCT 32.2 % (34.0-46.0); HGB 10.8 gm/dL (11.4-16.0); Lymphocytes # (A) 1.2 k/uL (1.0-4.8); Lymphocytes % (A) 13 %; MCH 28.2 pg (25.0-35.0); MCHC 33.6 g/dL (31.0-37.0); MCV 83.9 fL (80.0-100.0); Mean Platelet Volume 7.4; Monocytes # (A) 0.6 k/uL (0-1.0); Monocytes % (A) 6 %; Neutrophils % (A) 78 %; Platelet Count 165 k/uL (150-450); RBC 3.84 m/uL (3.80-5.40); RDW 14.3 % (11.5-15.5)
[2018-06-09 08:05] LABS: Calcium 8.9 mg/dL (8.4-10.2)
[2018-06-09] MEDS: HEPARIN SODIUM,PORCINE 5,000 UNIT/ML 1 ML VIAL SQ SCH (08:24)
[2018-06-09] MEDS: TRIAMTERENE-HCTZ 37.5-25MG 1 EACH TAB PO SCH (08:24)
[2018-06-09] MEDS: METOPROLOL SUCCINATE (ER) 50 MG TAB.ER.24H PO SCH (08:24)
[2018-06-09] MEDS: FLUTICASONE 50MCG/SPRAY NASAL 16GM EA NOSTRIL SCH (08:24)
[2018-06-09] MEDS: CALCIUM CARB-VIT D 500MG-200UN 1 EACH TAB PO SCH (08:25)
[2018-06-09] MEDS: PANTOPRAZOLE 40 MG TABLET PO SCH (08:25)
[2018-06-09] MEDS: GABAPENTIN 400 MG CAP PO SCH (08:25)
[2018-06-09] MEDS: ALVIMOPAN 12 MG CAPSULE PO SCH (08:25)
[2018-06-09] MEDS: LACTATED RINGERS 1,000 ML IV SCH (08:28)
--- NOTE | 2018-06-09 10:11 | P.DS ---
Providers Date of admission: 06/05/18 11:01 Expected date of discharge: 06/09/18 Attending physician: Yves Wheat Consults: 06/05/18 15:07 Consult Physician Routine Consulting Provider: Francy Bolaños Consult Reason/Comments: med mgmt Do you want consulting provider notified?: Yes Primary care physician: Francy Mami [facility] Course: A 67-year-old female who underwent a low anterior resection for a colovaginal fistula 6 weeks ago. There was concern at that time regarding the anastomotic site. A diverting ileostomy was performed due to the concern. June 05 the patient underwent ileostomy reversal no postop events patient was up ambulatory on the unit surgical dressing dry states had a bowel movement the night before and tolerating a diet was anxious to be discharged home was afebrile Patient recently was treated for bronchitis completed a course of antibiotic and oral steroids. Patient did have a temp of 101.4 on June 08 remained afebrile since patient had been followed by medicine service Dr. Bolaños no need for antibiotics at this time. Patient was felt to be appropriate to be discharged Impression A recent 6 week prior low anterior resection for colovaginal fistula with a diverging ileostomy performed Mild intermediate Asthma Ileostomy reversal done on June 05 Recent treatment for acute bronchitis with bronchospasm outpatient antibiotics and steroids Leukocytosis likely elevated due to the use of steroids Underlying hypertension Hyperlipidemia Type 2 diabetes non-insulin History of peripheral neuropathy Postoperative episode febrile with chills Discharge summary dictated for of [facility] on behalf of Dr. Flaherty The above impression and plan of care have been discussed and directed by signing physician. Ana Francisco nurse practitioner acting as scribe for signing physician. Plan - Discharge Summary Discharge Rx Participant: Yes New Discharge Prescriptions: New Hydrocodone/Acetaminophen [Girard 5-325] 1 - 2 each PO Q4HR PRN #15 tab PRN Reason: pain Continue Triamterene/Hydrochlorothiazid [Triamterene-Hctz 37.5-25 mg Tb] 1 tab PO DAILY Simvastatin [Zocor] 20 mg PO HS Albuterol Sulfate [Proair Hfa] 1 - 2 puff INHALATION RT-Q6H PRN PRN Reason: sob Omeprazole [PriLOSEC] 40 mg PO DAILY Montelukast [Singulair] 10 mg PO HS Losartan Potassium [Cozaar] 100 mg PO HS Vitamin E (Dl,Tocopheryl Acet) [Vitamin E] 400 unit PO DAILY Gabapentin [Neurontin] 800 mg PO TID Fluticasone Nasal [place] [Flonase Nasal [place]] 1 spray EA NOSTRIL DAILY DULoxetine HCL [Cymbalta] 60 mg PO HS Pioglitazone [Actos] 30 mg PO DAILY Pyridoxine HCl (Vitamin B6) [Vitamin B-6] 100 mg PO DAILY Calcium Carbonate/Vitamin D3 [Calcium 600-Vit D3 400 Caplet] 1 tab PO BID Diphenoxylate HCl/Atropine [Lomotil 2.5-0.025 mg Tablet] 1 tab PO Q48H PRN PRN Reason: Diarrhea Umeclidinium Brm/Vilanterol Tr [Anoro Ellipta 62.5-25 Mcg INH] 1 puff INHALATION RT-DAILY Metoprolol Succinate [Toprol Xl] 50 mg PO DAILY Acetaminophen [Tylenol Extra Strength] 1,000 mg PO Q6H PRN PRN Reason: Pain Discontinued Erythromycin Base [Erythromycin] 500 mg PO DAILY methylPREDNISolone [Medrol Dose Pack] See Taper PO DIRECTED Discharge Medication List Albuterol Sulfate [Proair Hfa] 1 - 2 puff INHALATION RT-Q6H PRN 12/02/17 [ History] DULoxetine HCL [Cymbalta] 60 mg PO HS 12/02/17 [History] Fluticasone Nasal [place] [Flonase Nasal [place]] 1 spray EA NOSTRIL DAILY 12/02/17 [History] Gabapentin [Neurontin] 800 mg PO TID 12/02/17 [History] Losartan Potassium [Cozaar] 100 mg PO HS 12/02/17 [History] Montelukast [Singulair] 10 mg PO HS 12/02/17 [History] Omeprazole [PriLOSEC] 40 mg PO DAILY 12/02/17 [History] Pioglitazone [Actos] 30 mg PO DAILY 12/02/17 [History] Pyridoxine HCl (Vitamin B6) [Vitamin B-6] 100 mg PO DAILY 12/02/17 [History] Simvastatin [Zocor] 20 mg PO HS 12/02/17 [History] Triamterene/Hydrochlorothiazid [Triamterene-Hctz 37.5-25 mg Tb] 1 tab PO DAILY 12/02/17 [History] Vitamin E (Dl,Tocopheryl Acet) [Vitamin E] 400 unit PO DAILY 12/02/17 [History] Acetaminophen [Tylenol Extra Strength] 1,000 mg PO Q6H PRN 03/06/18 [History] Calcium Carbonate/Vitamin D3 [Calcium 600-Vit D3 400 Caplet] 1 tab PO BID [History] Diphenoxylate HCl/Atropine [Lomotil 2.5-0.025 mg Tablet] 1 tab PO Q48H PRN 03/06 [History] Metoprolol Succinate [Toprol Xl] 50 mg PO DAILY 03/06/18 [History] Umeclidinium Brm/Vilanterol Tr [Anoro Ellipta 62.5-25 Mcg INH] 1 puff INHALATION RT-DAILY 03/06/18 [History] Hydrocodone/Acetaminophen [Girard 5-325] 1 - 2 each PO Q4HR PRN #15 tab 06/05/18 [Rx] Follow up Appointment(s)/Referral(s): Yves Wheat MD [Medical Doctor] - 06/24/18 1:00 pm [facility], [NON-STAFF] - As Needed Activity/Diet/Wound Care/Special Instructions: No tub bath for six weeks. Shower daily. No lifting over 10 pounds for the next 6 weeks. To not remove surgical dressing until seen in the follow-up visit May use ice packs to surgical site. No driving while taking narcotic for pain. Discharge Disposition: HOME SELF-CARE
--- NOTE | 2018-06-09 11:40 | P.PN ---
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 At the time there was concern regarding the anastomotic site. For that reason a diverting ileostomy was performed. Patient has done relatively well with her diverting ostomy. She does have some mild skin irritation and has had some issues with leakage from the appliance. Here today for ileostomy reversal. Recent CAT scan with rectal contrast shows wide patency of the anastomosis with no evidence of leak. Patient was seen in our office 4 days ago due to cough and evidence of bronchitis she received a course of oral antibiotic and oral steroids her white blood count was elevated due to the use of for steroids. On 06/07/2018 patient is alert and oriented 3 in no apparent distress, complaining of diarrhea otherwise no complaints there is no fever or chills no headache or dizziness no chest pain no shortness of breath no cough no nausea or vomiting no abdominal pain and no urinary symptoms 06/08/2018 patient had a temp of 101.4 last night. Also reports having chills. Still complain of some residual cough and had recently been treated with bronchitis outpatient. White count is normal at 9.4. She denies any chest pain or shortness of breath. She reports having regular stool yesterday. Denies any burning with urination. Currently on a full liquid diet 06/09/2018 patient has had no further fevers. She denies any chest pain or shortness of breath. Denies any significant cough. Urinalysis negative. Chest x-ray showing evidence of atelectasis. Denies any nausea or vomiting. Reports having bowel movement. Denies any difficulty urinating. Blood culture pending Objective - Vital Signs Vital signs: Vital Signs Temp 98.9 F 06/09/18 06:49 Pulse 88 06/09/18 07:55 Resp 14 06/09/18 06:49 BP 145/78 06/09/18 06:49 Pulse Ox 96 06/09/18 06:49 Intake & Output 06/08/18 06/09/18 06/09/18 18:59 06:59 18:59 Other: Voiding Method Toilet # Voids 2 1 - Exam Head normocephalic Neck supple Lungs diminished at bases bilaterally Heart regular rate and rhythm S1-S2, no rub or gallop Abdomen is soft nontender nondistended positive bowel sounds no hepatosplenomegaly. Dressing clean dry and intact Extremities no edema Neuro alert and orientated to 3 - Labs CBC & Chem 7: 06/09/18 07:32 06/09/18 07:32 Labs: Abnormal Lab Results - Last 24 Hours (Table) 06/09/18 06/09/18 Range/Units 07:32 07:32 Hgb 10.8 L (11.4-16.0) gm/dL Hct 32.2 L (34.0-46.0) % Chloride 97 L (98-107) mmol/L Carbon Dioxide 31 H (22-30) mmol/L Glucose 116 H (74-99) mg/dL Microbiology - Last 24 Hours (Table) 06/08/18 14:11 Urine Culture - Preliminary Urine,Clean Catch Assessment and Plan Assessment: #1 status post reversal of ileostomy reversal for colovaginal fistula #2 recent acute bronchitis with bronchospasm treated with outpatient oral antibiotic and steroids #3 leukocytosis likely related to the use of steroids, white blood count was elevated prior to surgery will monitor progress, white count has normalized #4 underlying history of hypertension blood pressure medication resume #5 underlying history of asthma maintained on Singulair and albuterol medication resume #6 underlying history of hyperlipidemia #7 underlying history of diabetes mellitus maintained on Actos #8 underlying history of peripheral neuropathy #9 fever likely related to atelectasis. Patient will be discharged home with incentive spirometer. We'll have her follow up with Dr. Bolaños in 3 days. Urinalysis negative. Chest x-ray showing evidence of atelectasis. Blood culture pending. Patient is been afebrile. And white count normal. For DVT prophylaxis patient is on subcu heparin for GI prophylaxis she is receiving pantoprazole Patient is medically stable for discharge. We'll have her follow up with Dr. Bolaños in 3 days I performed an examination of the patient and discussed their management with the physician Anchor Tacker. I have reviewed the Physician Anchor Tacker's notes and agree with the documented findings and plan of care
== END 2018-06-09 12:00 | disposition home or self-care (01) | DRG 331 ==
LOC: 2ORMAIN 11:01 → 3SUR 15:12
PROVIDERS: ADMIT Surgery; ATTEND Surgery
PROC: 0DQB0ZZ Repair Ileum, Open Approach (ICD-10-PCS; principal; 2018-06-05 13:00)
DX: Z43.2 Encounter for attention to ileostomy (principal); J44.9 Chronic obstructive pulmonary disease, unspecified; M79.7 Fibromyalgia; I10 Essential (primary) hypertension; G47.33 Obstructive sleep apnea (adult) (pediatric); E11.42 Type 2 diabetes mellitus with diabetic polyneuropathy; E78.5 Hyperlipidemia, unspecified; J45.20 Mild intermittent asthma, uncomplicated; K21.9 Gastro-esophageal reflux disease without esophagitis; T38.0X5A Adverse effect of glucocorticoids and synthetic analogues, initial encounter; Y92.230 Patient room in hospital as the place of occurrence of the external cause; D72.829 Elevated white blood cell count, unspecified; Z99.89 Dependence on other enabling machines and devices; Z79.51 Long term (current) use of inhaled steroids; Z79.899 Other long term (current) drug therapy; Z79.84 Long term (current) use of oral hypoglycemic drugs; Z88.5 Allergy status to narcotic agent; Z88.8 Allergy status to other drugs, medicaments and biological substances; Z85.828 Personal history of other malignant neoplasm of skin; Z86.711 Personal history of pulmonary embolism
CPT/HCPCS: 71046; 80048; 80053; 81003; 84132; 85025; 86850; 86900; 86901; 87040; 87086; 88304; 94640; 94760

== ENCOUNTER → 2018-12-24 | Outpatient (CLI) | payer MEDICARE, BC ==
--- NOTE | 2018-12-24 15:03 | CT ---
EXAMINATION TYPE: CT abdomen pelvis w con DATE OF EXAM: 12/24/2018 HISTORY: Abdominal pain. CT DLP: 1475mGycm Automated Exposure Control for Dose Reduction was Utilized. CONTRAST: CT scan of the abdomen and pelvis is performed with IV Contrast, patient injected with 80 mL of Isovu e 300. COMPARISON: 05/25/2018 and 12/02/2017 FINDINGS: LUNG BASES: No significant abnormality is appreciated. Minimal pleural parenchymal scarring is noted. LIVER/GB: There are 4 punctate foci of hypoattenuation within the hepatic parenchyma as marked on the images measuring up to 5 mm that are too small to accurately characterize. No intrahepatic biliary d uctal dilatation is seen. Gallbladder appears contracted. PANCREAS: Pancreatic parenchymal atrophy is seen without ductal dilatation. SPLEEN: Benign splenic granulomas are noted incidentally. ADRENALS: No significant abnormality is seen. KIDNEYS: 8 mm left hypoattenuated renal lesion is seen medially of the mid pole of the left kidney an d subcentimeter lower pole medial renal lesion is seen on image 37 as well as 2 additional probable r enal lesions on image 39 and 38 that are all too small to accurately characterize. On the right there are 3 renal cysts measuring up to 1.8 cm. Incidentally noted retroaortic left renal vein. BOWEL: There is a large ventral infraumbilical hernia with a wide neck spanning 15 cm containing loop s of small bowel in large bowel as well as mesenteric fat without evidence of dilation or bowel colla pse to suggest incarceration or obstruction on CT. There is mild overlying subcutaneous edema seen on sagittal series 6 image 40. Very few sigmoid colonic diverticula are present without pericolonic fat stranding. Some haustral thickening is seen of the ascending colon and cecum. LYMPH NODES: No greater than 1cm abdominal or pelvic lymph nodes are appreciated. Nonenlarged right l ower quadrant lymph nodes are seen measuring up to 6 mm in short axis. OSSEOUS STRUCTURES: No significant abnormality is seen. 8 mm sclerotic focus within the left iliac hong ne is nonspecific but stable in comparison to the most remote examination available of 12/02/2017. 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 Grade 1 retrolisthesis of L1- L4 is again seen. OTHER: No significant additional abnormality is seen. IMPRESSION: 1. Large wide necked infraumbilical ventral hernia containing loops of small bowel, large bowel and m esenteric fat without CT evidence of incarceration. Mild overlying subcutaneous edema is seen central ly on sagittal series 6 image 40. 2. Few nonenlarged right lower quadrant lymph nodes are seen that are slightly prominent from mesente xochitl lymph nodes measuring up to 6 mm in short axis and is not appreciated on the prior of 12/02/2017. A dditionally there is haustral thickening multifocally of the ascending colon and cecum. Although thes e findings likely relate to colonic spasm given the prominent lymph nodes colonoscopy could be consid ered if not recently performed.
== END | disposition home or self-care (01) ==
LOC: RADCTMAIN 12:20
PROVIDERS: ATTEND Surgery
DX: K43.9 Ventral hernia without obstruction or gangrene (principal)
CPT/HCPCS: 82565; 84520; 74177; 36415; Q9967

== ENCOUNTER → 2023-05-30 | Outpatient (CLI) | payer MEDICARE, BC ==
[2023-05-30 16:55] LABS: ALT 14 U/L (8-44); AST 16 U/L (13-35); Albumin 4.3 d/dL (3.8-4.9); Albumin/Globulin Ratio 2.26 Ratio (1.60-3.17); Alkaline Phosphatase 74 U/L (41-126); Blood Urea Nitrogen 19.4 mg/dL (9.0-27.0); Calcium 9.6 mg/dL (8.7-10.3); Carbon Dioxide 28.8 mmol/L (21.6-31.8); Chloride 100 mmol/L (96-109); Chol/HDL Ratio 3.16 Ratio; Globulin 1.9 d/dL (1.6-3.3); Glucose 101 mg/dL (70-110); LDL Cholesterol,Calculated 76.2 mg/dL (0.0-131.0); Potassium 4.1 mmol/L (3.5-5.5); Sodium 139 mmol/L (135-145); T4, Free (Free Thyroxine) 1.11 ng/dL (0.80-1.80); Total Bilirubin 0.3 mg/dL (0.3-1.2); Total Protein 6.2 d/dL (6.2-8.2)
[2023-05-30 17:34] LABS: Basophils # (A) 0.04 X 10*3/uL (0.00-0.10); Basophils % (A) 0.5 %; Eosinophils # (A) 0.08 X 10*3/uL (0.04-0.35); Eosinophils % (A) 1.1 %; HCT 39.9 % (37.2-46.3); HGB 12.5 d/dL (12.0-15.0); Lymphocytes # (A) 1.14 X 10*3/uL (0.90-5.00); Lymphocytes % (A) 15.4 %; MCH 27.4 pg (27.0-32.0); MCHC 31.3 d/dL (32.0-37.0); MCV 87.3 FL (80.0-97.0); Mean Platelet Volume 12.9 FL (9.5-12.2); Monocytes # (A) 0.54 X 10*3/uL (0.20-1.00); Monocytes % (A) 7.3 %; NRBC Per 100 WBC 0 X 10*3/uL (0.00-0.01); Neutrophils # (A) 5.56 X 10*3/uL (1.80-7.70); Neutrophils % (A) 75.4 %; Platelet Count 177 X 10*3/uL (140-440); RBC 4.57 X 10*6/uL (4.10-5.20); RDW 14.3 % (11.5-14.5); WBC 7.38 X 10*3/uL (4.50-10.00)
[2023-05-30 21:48] LABS: Microalbumin Creatinine Ratio <25 mg/g Cr (0-30); Urine Creatinine 47.1 mg/dL (28.0-217.0)
== END | disposition home or self-care (01) ==
LOC: LABWHC1 09:32
PROVIDERS: ATTEND Family Medicine
DX: Z11.59 Encounter for screening for other viral diseases (principal); Z13.220 Encounter for screening for lipoid disorders; E11.8 Type 2 diabetes mellitus with unspecified complications; N28.9 Disorder of kidney and ureter, unspecified; R53.82 Chronic fatigue, unspecified
CPT/HCPCS: 36415; 80053; 80061; 82043; 82306; 82570; 83036; 84439; 84481; 85025; 86803